=== PATIENT | female | born 1940 | race Caucasian/White ===

== ENCOUNTER → 2016-05-09 | Outpatient (CLI) | payer MEDICARE ==
--- NOTE | 2016-05-09 10:44 | REP ---
ULTRASOUND OF THE ABDOMEN: Real-time sonographic evaluation of the abdomen performed. Patient has had a prior cholecystectomy. There is no intrahepatic or extrahepatic biliary dilatation. Common bile duct is 8 mm in diameter. Liver and pancreas demonstrate no gross mass. Pancreas is not optimally seen due to overlying bowel gas. Spleen is normal in size with no intrinsic abnormality, length is 8.9 cm. Kidneys are normal in size and echotexture, right kidney measuring 10.6 x 4.4 x 5.2 cm and left kidney 10.4 x 4.4 x 5.3 cm. There is no hydronephrosis, renal mass, or nephrolithiasis. Abdominal aorta is normal in caliber with no aneurysm. Maximum AP diameter below the diaphragms is 2.7 cm, mid aspect 1.7 cm and distally 1.8 cm. There is no ascites. IMPRESSION: Essentially unremarkable abdominal ultrasound status post cholecystectomy. Signed by Tyson Potter MD 05/09/2016 03:19 P
== END ==
LOC: M RAD 09:08
PROVIDERS: ATTEND Nurse Practitioner Adult Health
DX: K59.00 Constipation, unspecified (principal); R10.13 Epigastric pain; R10.11 Right upper quadrant pain

== ENCOUNTER → 2016-05-27 | Outpatient (CLI) | payer MEDICARE ==
--- NOTE | 2016-05-27 12:40 | REP ---
NUCLEAR GASTRIC EMPTYING SCAN: Following the oral administration of 1.05 millicuries technetium 99m sulfur colloid in two scrambled eggs in 6 ounces of water, multiple images of the upper abdomen are performed in the anterior and posterior projections for 90 minutes. The gastric activity is measured and the gastric emptying time is calculated. At the end of 90 minutes 17% of the ingested activity has emptied from the stomach. This yields a t-1/2 of 185 minutes. Gastric emptying time is moderately elevated. IMPRESSION: Moderately elevated gastric emptying time, with delayed passage of ingested contents through the stomach. Signed by Tyson Potter MD 05/27/2016 05:04 P
== END ==
LOC: M RAD 08:43
PROVIDERS: ATTEND Internal Medicine Gastroenterology
DX: R10.13 Epigastric pain (principal); R10.11 Right upper quadrant pain; R11.0 Nausea
CPT/HCPCS: 78264; A9541

== ENCOUNTER → 2016-06-14 | Outpatient (CLI) | payer MEDICARE ==
[2016-06-14 12:46] LABS: ALBUMIN 4.1 GM/DL (3.2-5.2); ALBUMIN/GLOBULIN RATIO 1.41 (1.00-1.93); BILIRUBIN,DIRECT 0.1 MG/DL (0.0-0.2); BILIRUBIN,TOTAL 0.5 MG/DL (0.2-1.0)
== END ==
LOC: M LAB 11:32
PROVIDERS: ATTEND Internal Medicine Gastroenterology
DX: K31.84 Gastroparesis (principal); R10.11 Right upper quadrant pain; R10.13 Epigastric pain; K44.9 Diaphragmatic hernia without obstruction or gangrene

== ENCOUNTER → 2016-09-17 | Outpatient (CLI) | payer MEDICARE ==
--- NOTE | 2016-09-17 11:25 | REP ---
Chest x-ray: Two views. History: Cough and fever. Findings: There are degenerative disc changes in the thoracic spine. No other bony abnormality is seen. The lungs are well inflated and clear. Pleural angles are sharp. The heart is mildly enlarged with cardiothoracic ratio measuring 14.8 cm over 28.0 cm. There are clips in the right upper quadrant of the abdomen post cholecystectomy. Pulmonary vasculature is not increased. Impression: Mildly prominent heart. Otherwise no acute disease. Signed by Alexi Silverio MD 09/17/2016 12:26 P
== END ==
LOC: M WUC 11:00
PROVIDERS: ATTEND Nurse Practitioner Family
DX: R50.9 Fever, unspecified (principal); R05 Cough

== ENCOUNTER → 2017-09-12 | Outpatient (CLI) | payer MEDICARE | LOC: M WHC 12:47 | DX: Z12.31 Encounter for screening mammogram for malignant neoplasm of breast (principal); M85.80 Other specified disorders of bone density and structure, unspecified site; Z78.0 Asymptomatic menopausal state; Z80.3 Family history of malignant neoplasm of breast | CPT/HCPCS: 77067 ==

== ENCOUNTER → 2017-09-16 | Outpatient (REF) | payer MEDICARE ==
[2017-09-16 14:08] LABS: BASO # 0.1 10^3/uL (0.0-0.2); BASO % 0.8 % (0.0-1.0); EOS # 0.1 10^3/uL (0.0-0.50); EOS % 1.5 % (0.0-3.0); HEMATOCRIT 45.1 % (36.0-47.0); HEMOGLOBIN 14.8 g/dl (12.0-15.5); IMMATURE GRANULOCYTE % 0.3 % (0-3.0); LYMPH % 26.9 % (24.0-44.0); MEAN CORPUSCULAR HEMOGLOBIN 30.4 pg (27.0-33.0); MEAN CORPUSCULAR HGB CONC 32.8 g/dl (32.0-36.5); MEAN CORPUSCULAR VOLUME 92.6 fl (80.0-96.0); MONO # 0.9 10^3/uL (0.0-0.8); MONO % 11.5 % (0.0-5.0); NEUTROPHILS # 4.4 10^3/uL (1.8-7.7); PLATELET COUNT, AUTOMATED 189 10^3/uL (150-450); RED BLOOD COUNT 4.87 10^6/uL (4.00-5.40); RED CELL DISTRIBUTION WIDTH 13.7 % (11.5-14.5); WHITE BLOOD COUNT 7.4 10^3/uL (4.0-10.0)
[2017-09-16 14:11] LABS: FOLATE 16.5 NG/ML; TOTAL 25(OH) VITAMIN D 23.9 NG/ML (30.0-100.0); VITAMIN B12 LEVEL 810 PG/ML
[2017-09-16 14:27] LABS: ALBUMIN 4.1 GM/DL (3.2-5.2); ALBUMIN/GLOBULIN RATIO 1.17 (1.00-1.93); ALKALINE PHOSPHATASE 54 U/L (45-117); ALT/SGPT 36 U/L (12-78); ANION GAP 9 MEQ/L (8-16); AST/SGOT 20 U/L (7-37); BILIRUBIN,TOTAL 0.5 MG/DL (0.2-1.0); BLOOD UREA NITROGEN 20 MG/DL (7-18); CALCIUM LEVEL 9.3 MG/DL (8.8-10.2); CARBON DIOXIDE LEVEL 27 MEQ/L (21-32); CHLORIDE LEVEL 107 MEQ/L (98-107); CREATININE FOR GFR 0.94 MG/DL (0.55-1.30); GLOMERULAR FILTRATION RATE > 60.0 (>39); GLUCOSE, FASTING 101 MG/DL (70-100); POTASSIUM SERUM 3.9 MEQ/L (3.5-5.1); RHEUMATOID FACTOR QUANT < 10.0 IU/ML (<15.0); SODIUM LEVEL 143 MEQ/L (136-145); TOTAL PROTEIN 7.6 GM/DL (6.4-8.2)
[2017-09-16 14:35] LABS: ERYTHROCYTE SEDIMENTATION RATE 8 mm/hr (0-30)
[2017-09-20 00:06] LABS: ANTINUCLEAR ANTIBODIES DIRECT Negative (Negative); VITAMIN B1 LEVEL WHOLE BLOOD 115.2 nmol/L (66.5-200.0); VITAMIN E(ALPHA TOCOPHEROL) 13.3 mg/L (9.0-29.0); VITAMIN E(GAMMA TOCOPHEROL) 0.8 mg/L (0.5-4.9)
== END ==
LOC: M LABNEURO 09:26
DX: R42 Dizziness and giddiness (principal); R51 Headache
CPT/HCPCS: 82746

== ENCOUNTER → 2018-01-08 | Outpatient (REF) | payer MEDICARE ==
[2018-01-08 13:51] LABS: TOTAL 25(OH) VITAMIN D 37.7 NG/ML (30.0-100.0)
[2018-01-08 14:04] LABS: MAGNESIUM LEVEL 2.5 MG/DL (1.8-2.4)
== END ==
LOC: M LABNEURO 11:01
DX: K21.9 Gastro-esophageal reflux disease without esophagitis (principal); K44.9 Diaphragmatic hernia without obstruction or gangrene; K31.84 Gastroparesis; E55.9 Vitamin D deficiency, unspecified
CPT/HCPCS: 83735

== ENCOUNTER → 2019-01-21 | Outpatient (CLI) | payer MEDICARE ==
--- NOTE | 2019-01-21 11:16 | REP ---
BILATERAL SCREENING DIGITAL MAMMOGRAM WITH 3D TOMOSYNTHESIS: There are no palpable abnormalities or other breast complaints. The the patient states she had a clinical breast examination January,. The the patient states she performs self-breast examinations 12 times per year. The Tyrer-Cuzick Score is: 5.6% . Comparison is 01/19/2014. There are scattered areas of fibroglandular density. There is no dominant mass, micro calcific cluster or architectural distortion that would indicate malignancy. There are no additional findings on 3D tomosynthesiss. There is no change from the prior study. Impression: BIRADS/ACR category 1 mammogram. Negative. Recommendation: Routine annual screening mammography. This mammogram was interpreted with the aid of a FDA approved computer-aided detection system. A. Negative mammogram reports should not delay biopsy if a dominant or clinically suspicious mass is present. B. Not all breast cancers are identified by mammography or tomosynthesis. C. Adenosis and dense breasts may obscure an underlying neoplasm. Patient letter M1. Electronically Signed by Tyson Johnson MD 01/21/2019 11:07 A
== END ==
LOC: M WHC 09:01
PROVIDERS: ATTEND Nurse Practitioner Family
DX: Z12.31 Encounter for screening mammogram for malignant neoplasm of breast (principal)

== ENCOUNTER → 2020-01-24 | Outpatient (CLI) | payer MEDICARE ==
--- NOTE | 2020-01-24 11:29 | REPMRS ---
Patient History The patient states she had a clinical breast exam in January 2020. Family history of breast cancer at age 50 or over in maternal aunt, breast cancer at age 45 in paternal half sister, pancreatic cancer at age 50 or over in father. No Hormone Replacement Therapy 3D TOMOSYNTHESIS WAS PERFORMED. [facility] for [facility] cancer [facility] 5.1%. VOLPARA DENSITY B. Digital Woman Screen Mammo: January 24, 2020 - Exam #: [id number] Bilateral CC and MLO view(s) were taken. Technologist: RT Arcelia Prior study comparison: January 21, 2019, bilateral digital woman screen mammo performed at [facility]. September 12, 2017, digital woman screen mammo performed at [facility]. FINDINGS: There are scattered fibroglandular densities. There has been no change in the appearance of the mammogram from the prior studies. There is a mild amount of residual fibroglandular tissue which is fairly symmetric. There is no interval development of dominant mass, architectural distortion, or clustered microcalcification suggestive of malignancy. Assessment: BI-RADS/ACR category 1 mammogram. Negative Mammogram. Recommendation Routine screening mammogram in 1 year (for women over age 40). This mammogram was interpreted with the aid of an FDA-approved computer-aided dectection system. Electronically Signed By: Tyson Potter MD 01/24/20 [id number]
== END ==
LOC: M WHC 09:48
PROVIDERS: ATTEND Nurse Practitioner Family
DX: Z12.31 Encounter for screening mammogram for malignant neoplasm of breast (principal)

== ENCOUNTER → 2020-10-17 | Outpatient (CLI) | payer MEDICARE ==
[2020-10-17 11:52] LABS: BASO # 0.1 10^3/uL (0.0-0.2); BASO % 0.6 % (0.0-1.0); EOS # 0.1 10^3/uL (0.0-0.5); EOS % 1.4 % (0.0-3.0); HEMATOCRIT 45.1 % (36.0-47.0); HEMOGLOBIN 14.7 g/dl (12.0-15.5); LYMPH # 2.4 10^3/uL (1.5-5.0); LYMPH % 28.3 % (24.0-44.0); MEAN CORPUSCULAR HEMOGLOBIN 29.9 pg (27.0-33.0); MEAN CORPUSCULAR HGB CONC 32.6 g/dl (32.0-36.5); MEAN CORPUSCULAR VOLUME 91.7 fl (80.0-96.0); MONO # 1.1 10^3/uL (0.0-0.8); MONO % 12.4 % (2.0-8.0); NEUTROPHILS # 4.8 10^3/uL (1.5-8.5); NEUTROPHILS % 57.1 % (36.0-66.0); PLATELET COUNT, AUTOMATED 211 10^3/uL (150-450); RED BLOOD COUNT 4.92 10^6/uL (4.00-5.40); WHITE BLOOD COUNT 8.5 10^3/uL (4.0-10.0)
[2020-10-17 12:42] LABS: BLOOD UREA NITROGEN 17 MG/DL (7-18); CALCIUM LEVEL 9.9 MG/DL (8.8-10.2); CARBON DIOXIDE LEVEL 30 MEQ/L (21-32); CHLORIDE LEVEL 103 MEQ/L (98-107); CREATININE FOR GFR 0.89 MG/DL (0.55-1.30); GLOMERULAR FILTRATION RATE > 60.0 (>39); GLUCOSE, FASTING 95 MG/DL (70-100); POTASSIUM SERUM 3.8 MEQ/L (3.5-5.1); SODIUM LEVEL 140 MEQ/L (136-145)
== END ==
LOC: M LAB 10:41
PROVIDERS: ATTEND Internal Medicine Cardiovascular Disease
DX: E78.5 Hyperlipidemia, unspecified (principal)

== ENCOUNTER 2020-12-18 12:27 | Day surgery (SDC) | payer MEDICARE ==
[~2020-12-18] VITALS: Ht 157.5 cm; Wt 65.9 kg
[2020-12-18] MEDS ORDERED: PACE200T PO (15:20)
[2020-12-18] MEDS ORDERED: METO1TAB87 PO (15:20)
[2020-12-18] MEDS ORDERED: ASPI81CH33 PO (15:20)
[2020-12-18] MEDS ORDERED: XANA0.25 PO (15:20)
[2020-12-18] MEDS ORDERED: LOSA25TA14 PO (15:20)
[2020-12-18] MEDS ORDERED: ROSU20TA5 PO (15:20)
[2020-12-18 15:43] LABS: BASO # 0.1 10^3/uL (0.0-0.2); BASO % 0.3 % (0.0-1.0); HEMATOCRIT 44.3 % (36.0-47.0); LYMPH # 1.1 10^3/uL (1.5-5.0); LYMPH % 5.6 % (24.0-44.0); MEAN CORPUSCULAR HEMOGLOBIN 28.9 pg (27.0-33.0); MEAN CORPUSCULAR HGB CONC 31.6 g/dl (32.0-36.5); MEAN CORPUSCULAR VOLUME 91.5 fl (80.0-96.0); MONO # 0.8 10^3/uL (0.0-0.8); NEUTROPHILS # 17.5 10^3/uL (1.5-8.5); NEUTROPHILS % 89.6 % (36.0-66.0); PLATELET COUNT, AUTOMATED 242 10^3/uL (150-450); RED BLOOD COUNT 4.84 10^6/uL (4.00-5.40); WHITE BLOOD COUNT 19.6 10^3/uL (4.0-10.0)
[2020-12-18 16:14] LABS: BILIRUBIN,DIRECT 0.1 MG/DL (0.0-0.2); BILIRUBIN,TOTAL 0.4 MG/DL (0.2-1.0); CALCIUM LEVEL 9.4 MG/DL (8.8-10.2); CREATININE FOR GFR 0.96 MG/DL (0.55-1.30); POTASSIUM SERUM 3.8 MEQ/L (3.5-5.1); TOTAL PROTEIN 7.7 GM/DL (6.4-8.2)
[2020-12-18] MEDS ORDERED: ISOVUE-370 76% 100ML VIAL As Ordered ONE (16:47)
[2020-12-18] MEDS ORDERED: ONDANSETRON 4MG/2ML VIAL IV ONE (17:00)
[2020-12-18] MEDS ORDERED: MORPHINE 2 MG/ML 1ML VIAL (J2270) IV ONE (17:00)
[2020-12-18 17:17] LABS: CK-MB VALUE MASS < 1.0 NG/ML (<3.6); CPK CREATINE PHOSPHOKINASE 49 U/L (26-192); MB/CK RELATIVE INDEX 2.04 (< OR =4); TROPONIN I < 0.02 NG/ML (< 0.10)
--- NOTE | 2020-12-18 17:33 | ECGEPIP ---
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
--- NOTE | 2020-12-18 17:58 | REPVR ---
PROCEDURE INFORMATION: Exam: CT Abdomen And Pelvis With Contrast Exam date and time: 12/18/2020 4:07 PM Age: 79 years old Clinical indication: Abdominal pain; Additional info: Severe diffuse abd pain TECHNIQUE: Imaging protocol: Computed tomography of the abdomen and pelvis with contrast. Radiation optimization: All CT scans at this facility use at least one of these dose optimization techniques: automated exposure control; mA and/or kV adjustment per patient size (includes targeted exams where dose is matched to clinical indication); or iterative reconstruction. Contrast material: ISOVUE 370; Contrast volume: 100 ml; Contrast route: INTRAVENOUS (IV); COMPARISON: ABD COMPLETE US 05/09/2016 9:28 AM FINDINGS: Lungs: No suspicious mass or airspace process in the visualized lung bases. Liver: Liver appears normal with no focal abnormality. Gallbladder and bile ducts: Gallbladder is surgically absent. Prominent central bile ducts, likely postcholecystectomy capacitance effect. Pancreas: Pancreas appears normal. No focal mass or peripancreatic inflammation. Spleen: Spleen appears homogeneous without focal mass. Adrenal glands: Adrenal glands are normal in appearance. Kidneys and ureters: Left kidney is unremarkable. Right kidney demonstrates perinephric and periureteric stranding and increased renal pelvis urothelial enhancement without obstructing stone or parenchymal pyelonephritis. Stomach and bowel: No evidence of small bowel obstruction. Diverticular changes are present within the colon without inflammation. Appendix: Appendix is abnormal. It is fluid-filled and dilated with indistinct margins and irregular enhancing wall. It measures up to 13 mm in diameter with periappendiceal stranding. The distal tip of the appendix lies just to the left of the midline in the anterior lower abdomen at the craniocaudal level of the iliac bifurcation. No evidence of perforation. Intraperitoneal space: No pneumoperitoneum. Vasculature: Atherosclerotic change present in the aorta, without aneurysm. Main portal and splenic veins enhance normally. Lymph nodes: No enlarged lymph nodes. Urinary bladder: Urinary bladder appears normal. Reproductive: Female reproductive organs appear unremarkable. Bones/joints: Bony structures are normal except for lumbar spine degenerative disc changes. Soft tissues: Unremarkable. IMPRESSION: Acute appendicitis with distal appendix lying to the left of midline anterior to the iliac bifurcation. No evidence of perforation Electronically signed by: Valeriano Leiva On 12/18/2020 17:57:46 PM
[2020-12-18] MEDS ORDERED: PIPERACILLIN/TAZOBACTAM SOD 3.375 GM in D5W MINI-BAG PLUS 50 ML IV ONE (18:00)
[2020-12-18] MEDS ORDERED: MONI1OIN VA (18:26)
[2020-12-18] MEDS ORDERED: HYDR12CA PO (18:30)
[2020-12-18] MEDS ORDERED: ESOM40CA35 PO (18:30)
[2020-12-18 19:06] LABS: RSV AMPLIFICATION NEGATIVE (NEGATIVE)
[2020-12-18] MEDS ORDERED: ASPI1CHW3 PO (19:17)
[2020-12-18] MEDS ORDERED: HOME MED LIST COMPLETE! XX SCH (19:25)
[2020-12-18] MEDS ORDERED: BUPIVACAINE HCL 0.25% 30ML VIAL As Ordered ONE (19:51)
[2020-12-18] MEDS ORDERED: dexameTHASONE 4 MG/ML 1ML VIAL (J1100 PER 1MG) As Ordered ONE (19:58)
[2020-12-18] MEDS ORDERED: MIDAZOLAM INJ 2MG/2ML VIAL (J2250 PER 1MG) As Ordered ONE (19:58)
[2020-12-18] MEDS ORDERED: LIDOCAINE 2% 100MG/5ML SDV (FOR ANES.) As Ordered ONE (19:58)
[2020-12-18] MEDS ORDERED: fentaNYL 250 MCG/5 ML INJECTION (J3010) As Ordered ONE (19:58)
[2020-12-18] MEDS ORDERED: KETOROLAC 60MG 2ML VIAL As Ordered ONE (19:58)
[2020-12-18] MEDS ORDERED: ONDANSETRON 4MG/2ML VIAL As Ordered ONE (19:58)
[2020-12-18] MEDS ORDERED: ROCURONIUM BROMIDE 50 MG/5 ML VIAL As Ordered ONE (19:58)
[2020-12-18] MEDS ORDERED: propofoL 200 MG/20 ML VIAL As Ordered ONE (19:58)
[2020-12-18] MEDS ORDERED: ETOMIDATE INJ 20MG/10ML VIAL As Ordered ONE (20:05)
[2020-12-18] MEDS ORDERED: ROSUVASTATIN 10 MG TAB (CRESTOR) PO SCH (21:00)
[2020-12-18] MEDS ORDERED: ACETAMINOPHEN 1000MG 100ML IV BTL (OFIRMEV) (J0131 PER 10MG) As Ordered ONE (21:24)
[2020-12-18] MEDS ORDERED: SUGAMMADEX SODIUM 500 MG/5 ML VIAL (BRIDION) As Ordered ONE (21:34)
[2020-12-18] MEDS ORDERED: ePHEDrine SULFATE 25 MG/5 ML(5MG/ML) SYRINGE As Ordered ONE (21:35)
[2020-12-18] MEDS ORDERED: PHENYLephrine 500MCG 5ML (100MCG/ML) SYRINGE As Ordered ONE (21:35)
[2020-12-18] MEDS ORDERED: MORPHINE 2 MG/ML 1ML VIAL (J2270) IV PRN ×2 (21:55)
[2020-12-18] MEDS ORDERED: NS 1,000 ML IV SCH (21:55)
[2020-12-18] MEDS ORDERED: ONDANSETRON 4 MG TAB PO PRN (21:55)
[2020-12-18] MEDS ORDERED: oxyCODONE 5MG TAB PO PRN (22:05)
[2020-12-18] MEDS ORDERED: ONDANSETRON 4MG/2ML VIAL IV PRN (22:05)
[2020-12-18] MEDS ORDERED: fentaNYL 100 MCG/2 ML INJECTION (J3010) IV PRN (22:05)
[2020-12-18] MEDS ORDERED: LR 1,000 ML IV SCH (22:05)
[2020-12-18 23:00] VITALS: BP 138/63
[2020-12-18] MEDS: KETOROLAC 30 MG/ML 1ML VIAL IV SCH (23:00)
[2020-12-18 23:30] VITALS: BP 134/64
[2020-12-18] MEDS: ACETAMINOPHEN 500 MG TAB PO SCH (23:36)
[2020-12-18] MEDS: METOPROLOL TART 25 MG TABLET PO SCH (23:36)
[2020-12-18] MEDS: PIPERACILLIN/TAZOBACTAM SOD 3.375 GM in D5W MINI-BAG PLUS 50 ML IV SCH (23:37)
[2020-12-19] VITALS: BP 115/59
[2020-12-19 02:00] VITALS: BP 115/59
[2020-12-19] MEDS: KETOROLAC 30 MG/ML 1ML VIAL IV SCH ×2 (05:00→12:06)
[2020-12-19] MEDS: ACETAMINOPHEN 500 MG TAB PO SCH ×2 (05:59→14:00)
[2020-12-19 06:00] VITALS: BP 110/51
[2020-12-19] MEDS: PIPERACILLIN/TAZOBACTAM SOD 3.375 GM in D5W MINI-BAG PLUS 50 ML IV SCH ×2 (06:06→12:06)
[2020-12-19 08:17] VITALS: BP 119/61
[2020-12-19] MEDS: METOPROLOL TART 25 MG TABLET PO SCH (08:17)
--- NOTE | 2020-12-19 08:41 | IPNPDOC ---
Text Note Date of Service The patient was seen on 12/19/20. NOTE General surgery. Dr Dash The patient is a 79-year-old female status post laparoscopic appendectomy 12/19/2020s per Dr Dash. This morning, the patient is sitting up in bed. Has had breakfast. Has been out of bed to bathroom. States pain is controlled. Afebrile. VSS. MMM Lungs clear to auscultation S1-S2 regular rate rhythm Abdomen is soft, mild tenderness around surgical sites only. Dressings are clean/dry/intact. No edema No new labs Assessment/plan Status post laparoscopic appendectomy 12/18/[address] Dash. The patient is reviewed with Dr. Dash. Tolerating regular diet Pain is controlled Incisions are clean and dry Continue out of bed Likely discharge later today. VS,Fishbone, I+O VS, Fishbone, I+O Laboratory Tests 12/18/20 15:28 Vital Signs Date Time Temp Pulse Resp B/P (MAP) Pulse Ox O2 Delivery O2 Flow Rate FiO2 12/19/20 08:17 60 119/61 12/19/20 06:00 98.3 20 92 Room Air 12/18/20 21:54 10.0 I&O- Last 24 Hours up to 6 AM 12/19/20 06:00 Intake Total 1355 ml Output Total 810 ml Balance 545 ml Lorena Almazan Dec 19, 2020 08:41
[2020-12-19] MEDS ORDERED: PANTOPRAZOLE 40MG VIAL (C9113 PER 1) IV SCH (09:00)
[2020-12-19] MEDS ORDERED: LOSARTAN 25 MG TAB PO SCH (09:00)
[2020-12-19] MEDS ORDERED: AMIODARONE 200 MG TAB (PACERONE) PO SCH (09:00)
[2020-12-19 10:00] VITALS: BP 115/61
--- NOTE | 2021-01-12 13:12 | RO ---
OPERATIVE NOTE DATE OF OPERATION: 12/18/2020 PREOPERATIVE DIAGNOSIS: Acute appendicitis. POSTOPERATIVE DIAGNOSIS: Acute appendicitis. PROCEDURE: Laparoscopic appendectomy. SURGEON: Sanjay Dash MD [employer]RAFTSPERSON: ANESTHESIA: General endotracheal anesthesia. ESTIMATED BLOOD LOSS: Minimal. FLUIDS: Crystalloids. BRIEF PROCEDURE SUMMARY: The patient was brought into the operating room and was given general anesthesia. After adequate anesthesia and preoperative antibiotics were given, the patient was prepped and draped in the usual sterile fashion. Next, the supraumbilical incision was made with a skin knife, blunt dissection was carried down to fascia and Veress needle inserted into the abdomen and then insufflated to 15 mmHg of pressure. A dilating 12 mm trocar was placed and under direct visualization, suprapubic and left lower quadrant 5 mm trocars were placed. The appendix was seen in the right lower quadrant and dissected out using a harmonic scalpel. The mesentery was taken down to the base of the appendix/cecal wall and then transected with a DEBRA stapler. This was placed in an Endo catch bag and brought out through the umbilicus. The right lower quadrant was copiously irrigated until clear. All trocars were removed under direct visualization. Next, 0 Vicryl was used to close the fascia at the umbilicus, and 4-0 Vicryl was used to close all skin incisions. Steri-Strips and a dry sterile dressing was applied. Patient was awakened, extubated and brought to the recovery room, awake, alert and hemodynamically stable. Sponge and needle counts correct times 2.
== END 2020-12-19 15:30 | disposition home or self-care (01) ==
LOC: M ED 12:27 → M SDC 12:28 → M MS5PR 23:10 → M SDC 12-19 15:30
PROVIDERS: ATTEND Surgery
DX: K35.80 Unspecified acute appendicitis (principal); R11.2 Nausea with vomiting, unspecified; I48.91 Unspecified atrial fibrillation; E78.5 Hyperlipidemia, unspecified; I25.2 Old myocardial infarction; I10 Essential (primary) hypertension; I25.10 Atherosclerotic heart disease of native coronary artery without angina pectoris; Z95.5 Presence of coronary angioplasty implant and graft; K58.9 Irritable bowel syndrome, unspecified; Z95.1 Presence of aortocoronary bypass graft; Z88.8 Allergy status to other drugs, medicaments and biological substances; Z88.1 Allergy status to other antibiotic agents; Z79.899 Other long term (current) drug therapy; Z79.82 Long term (current) use of aspirin
CPT/HCPCS: 44970; 74177; 80048; 80076; 81001; 82550; 82553; 83690; 84484; 85025; 87086; 87631; 88304; 93005; 96365; 96375; 96376; 99284; C9113; J0131; J1100; J1885; J2250; J2270; J2370; J2405; J2543; J3010; Q9967

== ENCOUNTER → 2021-08-02 | Outpatient (REF) | payer MEDICARE ==
[~2021-08-02] MED LIST: ASPI1CHW3 PO; ASPI81CH33 PO; ESOM40CA35 PO; HYDR12CA PO; LOSA25TA13 PO; METO1TAB87 PO; MONI1OIN VA; PACE200T PO; ROSU20TA5 PO; XANA0.25 PO
[2021-08-02 14:19] LABS: BACTERIA, URINE AUTO NEGATIVE (NEGATIVE); MUCUS, URINE SMALL (NEGATIVE); RBC, URINE AUTO 2 /HPF (0-3); SQUAMOUS EPITHELIAL CELL UR AU 0 /HPF (0-6); WBC, URINE AUTO 5 /HPF (0-3)
== END ==
LOC: M LAB REF 13:01
PROVIDERS: ATTEND Internal Medicine
DX: N39.0 Urinary tract infection, site not specified (principal); R31.9 Hematuria, unspecified

== ENCOUNTER → 2021-08-10 | Outpatient (REF) | payer MEDICARE ==
[~2021-08-10] MED LIST changes: +AMLO1TAB24 PO; +CEPH500C PO; +OXYB5TAB10 PO; +OXYC1TAB23 PO
[2021-08-10 14:07] LABS: APPEARANCE, URINE CLEAR (CLEAR); BACTERIA, URINE AUTO NEGATIVE (NEGATIVE); BILIRUBIN, URINE AUTO NEGATIVE (NEGATIVE); BLOOD, URINE BLOOD 3+ (NEGATIVE); COLOR, URINE STRAW (YELLOW); GLUCOSE, URINE (UA) AUTO NEGATIVE (NEGATIVE); KETONE, URINE AUTO NEGATIVE (NEGATIVE); LEUKOCYTE ESTERASE, URINE AUTO TRACE (NEGATIVE); MUCUS, URINE SMALL (NEGATIVE); NITRITE, URINE AUTO NEGATIVE (NEGATIVE); PROTEIN, URINE AUTO NEGATIVE (NEGATIVE); RBC, URINE AUTO 4 /HPF (0-3); SPECIFIC GRAVITY URINE AUTO 1.004 (1.002-1.035); SQUAMOUS EPITHELIAL CELL UR AU 0 /HPF (0-6); TRANSITIONAL EPITHELIAL AUTO <1 /HPF; UROBILINOGEN, URINE AUTO 0.2 mg/dL (0.0-2.0); WBC, URINE AUTO 4 /HPF (0-3)
== END ==
LOC: M SMT 13:22
PROVIDERS: ATTEND Physician Assistant
DX: R31.0 Gross hematuria (principal)

== ENCOUNTER 2021-08-21 15:37 | Emergency (ER) | payer MEDICARE ==
[~2021-08-21] VITALS: Ht 154.9 cm; Wt 72.4 kg
[~2021-08-21 15:37] MED LIST changes: -CEPH500C PO; -ISOVUE-370 76% 100ML VIAL As Ordered ONE
[2021-08-21 17:20] LABS: BASO # 0.1 10^3/uL (0.0-0.2); BASO % 0.7 % (0.0-1.0); EOS # 0.1 10^3/uL (0.0-0.5); EOS % 1.3 % (0.0-3.0); HEMATOCRIT 48.1 % (36.0-47.0); HEMOGLOBIN 15.7 g/dl (12.0-15.5); LYMPH # 1.4 10^3/uL (1.5-5.0); LYMPH % 19.4 % (24.0-44.0); MEAN CORPUSCULAR HGB CONC 32.6 g/dl (32.0-36.5); MEAN CORPUSCULAR VOLUME 91.8 fl (80.0-96.0); MONO % 13.9 % (2.0-8.0); NEUTROPHILS # 4.8 10^3/uL (1.5-8.5); NEUTROPHILS % 64.4 % (36.0-66.0); PLATELET COUNT, AUTOMATED 180 10^3/uL (150-450); RED BLOOD COUNT 5.24 10^6/uL (4.00-5.40); WHITE BLOOD COUNT 7.4 10^3/uL (4.0-10.0)
[2021-08-21 17:49] LABS: CALCIUM LEVEL 9.4 MG/DL (8.8-10.2); CREATININE FOR GFR 1.11 MG/DL (0.55-1.30); GLOMERULAR FILTRATION RATE 50.6 (>39); POTASSIUM SERUM 3.8 MEQ/L (3.5-5.1)
[2021-08-21] MEDS ORDERED: CEPH500C PO (20:00)
[2021-08-21] MEDS ORDERED: CEPHALEXIN 500 MG CAP PO ONE (20:05)
[2021-08-21 20:22] VITALS: BP 134/76
== END 2021-08-21 20:22 | disposition home or self-care (01) ==
LOC: M ED 15:37
DX: N10 Acute pyelonephritis (principal); R31.29 Other microscopic hematuria; I25.2 Old myocardial infarction; I25.10 Atherosclerotic heart disease of native coronary artery without angina pectoris; I10 Essential (primary) hypertension; E78.5 Hyperlipidemia, unspecified; K58.9 Irritable bowel syndrome, unspecified; Z95.1 Presence of aortocoronary bypass graft; Z79.82 Long term (current) use of aspirin; Z79.899 Other long term (current) drug therapy; Z88.8 Allergy status to other drugs, medicaments and biological substances; Z88.1 Allergy status to other antibiotic agents
CPT/HCPCS: 74178; 80048; 81001; 85025; 87086; 99284; Q9967

== ENCOUNTER → 2021-08-21 | Outpatient (CLI) | payer MEDICARE ==
[~2021-08-21] MED LIST changes: -AMLO1TAB24 PO; +ISOVUE-370 76% 100ML VIAL As Ordered ONE; -OXYB5TAB10 PO; -OXYC1TAB23 PO
== END ==
LOC: M RAD 09:23
PROVIDERS: ATTEND Physician Assistant
DX: R31.0 Gross hematuria (principal)
CPT/HCPCS: 74178; Q9967

== ENCOUNTER → 2021-09-03 | Outpatient (REF) | payer MEDICARE ==
[~2021-09-03] MED LIST changes: +CEPH500C PO
== END ==
LOC: M SMT 13:09
PROVIDERS: ATTEND Urology
DX: R31.0 Gross hematuria (principal)

== ENCOUNTER → 2021-09-07 | Outpatient (CLI) | payer MEDICARE ==
[2021-09-07 15:06] LABS: HEMATOCRIT 46.4 % (36.0-47.0); HEMOGLOBIN 15.2 g/dl (12.0-15.5); MEAN CORPUSCULAR HEMOGLOBIN 29.7 pg (27.0-33.0); MEAN CORPUSCULAR HGB CONC 32.8 g/dl (32.0-36.5); MEAN CORPUSCULAR VOLUME 90.8 fl (80.0-96.0); PLATELET COUNT, AUTOMATED 199 10^3/uL (150-450); RED BLOOD COUNT 5.11 10^6/uL (4.00-5.40); WHITE BLOOD COUNT 10.3 10^3/uL (4.0-10.0)
[2021-09-07 15:51] LABS: CALCIUM LEVEL 9.9 MG/DL (8.8-10.2); CREATININE FOR GFR 1.05 MG/DL (0.55-1.30); POTASSIUM SERUM 4.6 MEQ/L (3.5-5.1)
== END ==
LOC: M RAD 14:01
PROVIDERS: ATTEND Urology
DX: R82.89 Other abnormal findings on cytological and histological examination of urine (principal); Z79.899 Other long term (current) drug therapy

== ENCOUNTER → 2021-09-10 | Outpatient (REF) | payer MEDICARE ==
[2021-09-10 16:36] LABS: APPEARANCE, URINE CLEAR (CLEAR); BACTERIA, URINE AUTO 1+ (NEGATIVE); BILIRUBIN, URINE AUTO NEGATIVE (NEGATIVE); BLOOD, URINE BLOOD 2+ (NEGATIVE); COLOR, URINE COLORLESS (YELLOW); GLUCOSE, URINE (UA) AUTO NEGATIVE (NEGATIVE); KETONE, URINE AUTO NEGATIVE (NEGATIVE); LEUKOCYTE ESTERASE, URINE AUTO NEGATIVE (NEGATIVE); NITRITE, URINE AUTO NEGATIVE (NEGATIVE); PROTEIN, URINE AUTO NEGATIVE (NEGATIVE); RBC, URINE AUTO 0 /HPF (0-3); SPECIFIC GRAVITY URINE AUTO 1.003 (1.002-1.035); SQUAMOUS EPITHELIAL CELL UR AU 1 /HPF (0-6); UROBILINOGEN, URINE AUTO 0.2 mg/dL (0.0-2.0); WBC, URINE AUTO 2 /HPF (0-3)
== END ==
LOC: M LAB REF 16:17
PROVIDERS: ATTEND Internal Medicine
DX: Z01.810 Encounter for preprocedural cardiovascular examination (principal); R31.0 Gross hematuria

== ENCOUNTER → 2021-09-17 | Outpatient (CLI) | payer MEDICARE | LOC: M LABSMTC 09:32 | PROVIDERS: ATTEND Anesthesiology | DX: Z20.822 Contact with and (suspected) exposure to COVID-19 (principal) ==

== ENCOUNTER 2021-09-21 08:48 | Day surgery (SDC) | payer MEDICARE ==
[~2021-09-21] VITALS: Ht 154.9 cm; Wt 71.8 kg
[~2021-09-21 08:48] MED LIST changes: +AMLO1TAB24 PO; +LIDOCAINE 1% MDV 20ML VIAL SQ PRN; +LR 1,000 ML IV ONE; +ceFAZolin SOD 2 GM in IV 1 EA IV ONE
[2021-09-21] MEDS ORDERED: ISOVUE-300 61% 50ML VIAL As Ordered ONE (10:30)
[2021-09-21] MEDS ORDERED: MIDAZOLAM INJ 2MG/2ML VIAL (J2250 PER 1MG) As Ordered ONE (10:38)
[2021-09-21] MEDS ORDERED: fentaNYL 100 MCG/2 ML INJECTION As Ordered ONE (10:38)
[2021-09-21] MEDS ORDERED: propofoL 200 MG/20 ML VIAL As Ordered ONE (10:38)
[2021-09-21] MEDS ORDERED: LIDOCAINE 2% 100MG/5ML SDV (FOR ANES.) As Ordered ONE (10:38)
[2021-09-21] MEDS ORDERED: ONDANSETRON 4MG/2ML VIAL As Ordered ONE (10:51)
[2021-09-21] MEDS ORDERED: dexameTHASONE 4 MG/ML 1ML VIAL (J1100 PER 1MG) As Ordered ONE (10:51)
[2021-09-21] MEDS ORDERED: ACETAMINOPHEN 1000MG 100ML IV BTL (OFIRMEV) (J0131 PER 10MG) As Ordered ONE (10:54)
[2021-09-21] MEDS ORDERED: OXYC1TAB23 PO (12:26)
[2021-09-21] MEDS ORDERED: OXYB5TAB10 PO (12:26)
[2021-09-21] MEDS ORDERED: fentaNYL 100 MCG/2 ML INJECTION IV PRN (12:30)
[2021-09-21] MEDS ORDERED: oxyCODONE 5MG TAB PO PRN (12:30)
[2021-09-21] MEDS ORDERED: LR 1,000 ML IV SCH (12:30)
[2021-09-21] MEDS ORDERED: ONDANSETRON 4MG/2ML VIAL IV PRN (12:30)
[2021-09-21] MEDS ORDERED: oxyBUTYnin 5 MG TAB PO PRN (12:35)
[2021-09-21] MEDS ORDERED: PERCOCET 5MG/325MG TAB PO PRN (12:35)
[2021-09-21 13:27] VITALS: BP 176/86
== END 2021-09-21 13:43 | disposition home or self-care (01) ==
LOC: M SDC 08:48
PROVIDERS: ATTEND Urology
DX: C68.0 Malignant neoplasm of urethra (principal); R31.0 Gross hematuria; N13.39 Other hydronephrosis; I10 Essential (primary) hypertension; R73.03 Prediabetes; K58.8 Other irritable bowel syndrome; M48.00 Spinal stenosis, site unspecified; I25.2 Old myocardial infarction; Z87.19 Personal history of other diseases of the digestive system; M19.90 Unspecified osteoarthritis, unspecified site; Z88.1 Allergy status to other antibiotic agents; Z79.899 Other long term (current) drug therapy; Z79.82 Long term (current) use of aspirin; Z79.890 Hormone replacement therapy
CPT/HCPCS: 52332; 52354; 74420; 88108; 88305; C1769; C1894; C2617; J0131; J0690; J1100; J2250; J2405; J3010; Q9967

== ENCOUNTER → 2021-10-09 | Outpatient (CLI) | payer MEDICARE ==
[~2021-10-09] MED LIST changes: -LIDOCAINE 1% MDV 20ML VIAL SQ PRN; -LR 1,000 ML IV ONE; +OXYB5TAB10 PO; +OXYC1TAB23 PO; -ceFAZolin SOD 2 GM in IV 1 EA IV ONE
[2021-10-09 12:03] LABS: HEMATOCRIT 43.7 % (36.0-47.0); HEMOGLOBIN 13.7 g/dl (12.0-15.5); MEAN CORPUSCULAR HEMOGLOBIN 29.1 pg (27.0-33.0); MEAN CORPUSCULAR HGB CONC 31.4 g/dl (32.0-36.5); MEAN CORPUSCULAR VOLUME 92.8 fl (80.0-96.0); PLATELET COUNT, AUTOMATED 230 10^3/uL (150-450); RED BLOOD COUNT 4.71 10^6/uL (4.00-5.40); WHITE BLOOD COUNT 10.1 10^3/uL (4.0-10.0)
[2021-10-09 12:45] LABS: CALCIUM LEVEL 8.9 MG/DL (8.8-10.2); CREATININE FOR GFR 1.32 MG/DL (0.55-1.30); GLOMERULAR FILTRATION RATE 41.4 (>39)
== END ==
LOC: M LAB 11:13
PROVIDERS: ATTEND Urology
DX: Z01.818 Encounter for other preprocedural examination (principal); C80.1 Malignant (primary) neoplasm, unspecified; N39.0 Urinary tract infection, site not specified

== ENCOUNTER → 2021-10-14 | Outpatient (CLI) | payer MEDICARE ==
[~2021-10-14] MED LIST changes: +AMLO1TAB25 PO; +LOSA100T45 PO
== END ==
LOC: M LABSMTC 11:02
PROVIDERS: ATTEND Anesthesiology
DX: Z01.812 Encounter for preprocedural laboratory examination (principal)

== ENCOUNTER 2021-10-17 06:05 | Inpatient (IN) | payer MEDICARE ==
[2021-10-17] VITALS (7 sets, daily range): BP systolic 120–127; BP diastolic 60–63
[~2021-10-17] VITALS: Ht 154.9 cm; Wt 69.4 kg
[~2021-10-17 06:05] MED LIST changes: +HEPARIN SOD (PORCINE) 5000UNITS/ML 1ML VIAL/SYRINGE SQ ONE; +ceFAZolin SOD 2 GM in IV 1 EA IV ONE
[2021-10-17] MEDS ORDERED: LR 1,000 ML IV SCH ×2 (06:30→14:00)
[2021-10-17] MEDS ORDERED: LIDOCAINE 1% SDV 30ML VIAL As Ordered ONE (07:07)
[2021-10-17] MEDS ORDERED: BUPIVACAINE HCL 0.25% 30ML VIAL As Ordered ONE (07:07)
[2021-10-17] MEDS ORDERED: ONDANSETRON 4MG 2ML VIAL As Ordered ONE (07:17)
[2021-10-17] MEDS ORDERED: LIDOCAINE 2% 100MG/5ML SDV (FOR ANES.) As Ordered ONE (07:17)
[2021-10-17] MEDS ORDERED: MIDAZOLAM INJ 2MG/2ML VIAL (J2250 PER 1MG) As Ordered ONE (07:17)
[2021-10-17] MEDS ORDERED: propofoL 200 MG/20 ML VIAL As Ordered ONE (07:17)
[2021-10-17] MEDS ORDERED: ACETAMINOPHEN 1000MG 100ML IV BTL (OFIRMEV) (J0131 PER 10MG) As Ordered ONE ×2 (07:17→14:31)
[2021-10-17] MEDS ORDERED: METOCLOPRAMIDE INJ 10MG/2ML VIAL (J2765 PER 1) As Ordered ONE (07:17)
[2021-10-17] MEDS ORDERED: ROCURONIUM BROMIDE 50 MG/5 ML VIAL As Ordered ONE (07:17)
[2021-10-17] MEDS ORDERED: HYDROmorphone HCL 2MG/ML 1ML VIAL As Ordered ONE (07:17)
[2021-10-17] MEDS ORDERED: fentaNYL 100 MCG/2 ML INJECTION As Ordered ONE (07:17)
[2021-10-17] MEDS ORDERED: dexameTHASONE 4 MG/ML 1ML VIAL (J1100 PER 1MG) As Ordered ONE (07:17)
[2021-10-17] MEDS ORDERED: ONDANSETRON 4MG 2ML VIAL IV PRN ×2 (07:45→14:00)
[2021-10-17] MEDS ORDERED: ACETAMINOPHEN TAB 650MG DOSE (2X325MG) PO PRN (07:45)
[2021-10-17] MEDS ORDERED: ceFAZolin 2 GM/D5W 50 ML IV BAG (J0690 PER 500MG) As Ordered ONE (11:36)
[2021-10-17] MEDS ORDERED: SUGAMMADEX SODIUM 500 MG/5 ML VIAL (BRIDION) As Ordered ONE (13:24)
[2021-10-17] MEDS ORDERED: fentaNYL 100 MCG/2 ML INJECTION IV PRN (14:00)
[2021-10-17] MEDS ORDERED: oxyCODONE 5MG TAB PO PRN (14:00)
[2021-10-17 14:59] LABS: HEMATOCRIT 42.3 % (36.0-47.0); HEMOGLOBIN 13.7 g/dl (12.0-15.5); MEAN CORPUSCULAR HEMOGLOBIN 29.9 pg (27.0-33.0); MEAN CORPUSCULAR HGB CONC 32.4 g/dl (32.0-36.5); MEAN CORPUSCULAR VOLUME 92.4 fl (80.0-96.0); PLATELET COUNT, AUTOMATED 212 10^3/uL (150-450); RED BLOOD COUNT 4.58 10^6/uL (4.00-5.40); WHITE BLOOD COUNT 14.1 10^3/uL (4.0-10.0)
[2021-10-17 15:20] LABS: CALCIUM LEVEL 9.4 MG/DL (8.8-10.2); CREATININE FOR GFR 1.59 MG/DL (0.55-1.30); GLOMERULAR FILTRATION RATE 33.4 (>39); POTASSIUM SERUM 3.9 MEQ/L (3.5-5.1)
[2021-10-17] MEDS: NS 1,000 ML IV SCH (16:25)
[2021-10-17] MEDS: ceFAZolin SOD 1 GM in D5W MINI-BAG PLUS 50 ML IV SCH (16:25)
[2021-10-17] MEDS: PERCOCET 5MG/325MG TAB PO PRN ×2 (19:15→23:29)
[2021-10-17] MEDS: ROSUVASTATIN 10 MG TAB (CRESTOR) PO SCH (21:51)
[2021-10-17] MEDS: DOCUSATE SODIUM 100MG CAPSULE PO SCH (21:51)
[2021-10-17] MEDS: HEPARIN SOD (PORCINE) 5000UNITS/ML 1ML VIAL/SYRINGE SC SCH (21:52)
[2021-10-17] MEDS: METOPROLOL TART 25 MG TABLET PO SCH (21:52)
[2021-10-18] VITALS (8 sets, daily range): BP systolic 121–154; BP diastolic 65–73
[2021-10-18] MEDS: ceFAZolin SOD 1 GM in D5W MINI-BAG PLUS 50 ML IV SCH (00:03)
[2021-10-18] MEDS: NS 1,000 ML IV SCH (00:03)
[2021-10-18] MEDS: PERCOCET 5MG/325MG TAB PO PRN ×4 (04:28→22:12)
[2021-10-18] MEDS: HEPARIN SOD (PORCINE) 5000UNITS/ML 1ML VIAL/SYRINGE SC SCH ×3 (05:15→22:10)
[2021-10-18 05:54] LABS: HEMATOCRIT 35.6 % (36.0-47.0); MEAN CORPUSCULAR HGB CONC 32.9 g/dl (32.0-36.5); MEAN CORPUSCULAR VOLUME 91.3 fl (80.0-96.0); PLATELET COUNT, AUTOMATED 178 10^3/uL (150-450); WHITE BLOOD COUNT 15.2 10^3/uL (4.0-10.0)
[2021-10-18 06:04] LABS: HEMOGLOBIN 11.7 g/dl (12.0-15.5)
[2021-10-18 06:14] LABS: CREATININE FOR GFR 1.51 MG/DL (0.55-1.30); GLOMERULAR FILTRATION RATE 35.5 (>39); POTASSIUM SERUM 4.3 MEQ/L (3.5-5.1)
[2021-10-18] MEDS: DOCUSATE SODIUM 100MG CAPSULE PO SCH ×2 (10:02→22:10)
[2021-10-18] MEDS: METOPROLOL TART 25 MG TABLET PO SCH ×2 (10:07→22:13)
[2021-10-18] MEDS: amLODIPine 5 MG TAB PO SCH (10:08)
[2021-10-18] MEDS: LOSARTAN 50MG TABLET PO SCH (10:08)
[2021-10-18] MEDS: BACTRIM 160MG/800MG DS TAB PO SCH (13:51)
[2021-10-18] MEDS: ROSUVASTATIN 10 MG TAB (CRESTOR) PO SCH (22:11)
[2021-10-19 02:00] VITALS: BP 138/67
[2021-10-19 05:37] LABS: HEMATOCRIT 35.6 % (36.0-47.0); HEMOGLOBIN 11.8 g/dl (12.0-15.5); MEAN CORPUSCULAR HEMOGLOBIN 30.4 pg (27.0-33.0); MEAN CORPUSCULAR HGB CONC 33.1 g/dl (32.0-36.5); MEAN CORPUSCULAR VOLUME 91.8 fl (80.0-96.0); PLATELET COUNT, AUTOMATED 159 10^3/uL (150-450); RED BLOOD COUNT 3.88 10^6/uL (4.00-5.40); WHITE BLOOD COUNT 10.9 10^3/uL (4.0-10.0)
[2021-10-19 05:59] LABS: CALCIUM LEVEL 8.9 MG/DL (8.8-10.2); CREATININE FOR GFR 1.58 MG/DL (0.55-1.30); GLOMERULAR FILTRATION RATE 33.7 (>39); POTASSIUM SERUM 4.2 MEQ/L (3.5-5.1)
[2021-10-19 06:00] VITALS: BP 136/68
[2021-10-19] MEDS: HEPARIN SOD (PORCINE) 5000UNITS/ML 1ML VIAL/SYRINGE SC SCH (06:43)
[2021-10-19] MEDS ORDERED: COLA100C5 PO (07:41)
[2021-10-19] MEDS ORDERED: BACTDSTA PO (07:41)
[2021-10-19] MEDS ORDERED: PERCOCET PO (07:41)
[2021-10-19] MEDS: BACTRIM 160MG/800MG DS TAB PO SCH (08:12)
[2021-10-19] MEDS: DOCUSATE SODIUM 100MG CAPSULE PO SCH ×2 (08:12→08:20)
[2021-10-19] MEDS: LOSARTAN 50MG TABLET PO SCH (08:14)
[2021-10-19] MEDS: amLODIPine 5 MG TAB PO SCH (08:14)
[2021-10-19 08:15] VITALS: BP 141/72
[2021-10-19] MEDS: METOPROLOL TART 25 MG TABLET PO SCH (08:15)
[2021-10-19] MEDS: PERCOCET 5MG/325MG TAB PO PRN (08:19)
== END 2021-10-19 12:25 | disposition home or self-care (01) | DRG 658 ==
LOC: M OR 06:05 → M MS5PR 15:30
PROVIDERS: ADMIT Urology; ATTEND Urology
PROC: 0TT68ZZ Resection of Right Ureter, Via Natural or Artificial Opening Endoscopic (ICD-10-PCS; 2021-10-17)
PROC: 0TP94DZ Removal of Intraluminal Device from Ureter, Percutaneous Endoscopic Approach (ICD-10-PCS; 2021-10-17)
PROC: 8E0W4CZ Robotic Assisted Procedure of Trunk Region, Percutaneous Endoscopic Approach (ICD-10-PCS; 2021-10-17)
PROC: 0TJB8ZZ Inspection of Bladder, Via Natural or Artificial Opening Endoscopic (ICD-10-PCS; 2021-10-17)
PROC: 0TT04ZZ Resection of Right Kidney, Percutaneous Endoscopic Approach (ICD-10-PCS; principal; 2021-10-17 07:30)
DX: C68.0 Malignant neoplasm of urethra (principal); I10 Essential (primary) hypertension; R73.03 Prediabetes; K58.8 Other irritable bowel syndrome; M48.00 Spinal stenosis, site unspecified; I25.2 Old myocardial infarction; M19.90 Unspecified osteoarthritis, unspecified site; Z88.1 Allergy status to other antibiotic agents; Z79.899 Other long term (current) drug therapy; Z79.82 Long term (current) use of aspirin; Z79.890 Hormone replacement therapy; Z87.19 Personal history of other diseases of the digestive system

== ENCOUNTER → 2021-10-25 | Outpatient (CLI) | payer MEDICARE ==
[~2021-10-25] MED LIST changes: +BACTDSTA PO; +COLA100C5 PO; -HEPARIN SOD (PORCINE) 5000UNITS/ML 1ML VIAL/SYRINGE SQ ONE; +PERCOCET PO; -ceFAZolin SOD 2 GM in IV 1 EA IV ONE
[2021-10-25 16:01] LABS: HEMATOCRIT 38.2 % (36.0-47.0); HEMOGLOBIN 12.5 g/dl (12.0-15.5); MEAN CORPUSCULAR HEMOGLOBIN 30.4 pg (27.0-33.0); MEAN CORPUSCULAR HGB CONC 32.7 g/dl (32.0-36.5); MEAN CORPUSCULAR VOLUME 92.9 fl (80.0-96.0); PLATELET COUNT, AUTOMATED 264 10^3/uL (150-450); RED BLOOD COUNT 4.11 10^6/uL (4.00-5.40); WHITE BLOOD COUNT 10.2 10^3/uL (4.0-10.0)
[2021-10-25 16:18] LABS: CALCIUM LEVEL 9.6 MG/DL (8.8-10.2); CREATININE FOR GFR 1.64 MG/DL (0.55-1.30); GLOMERULAR FILTRATION RATE 32.3 (>39); POTASSIUM SERUM 4.5 MEQ/L (3.5-5.1)
== END ==
LOC: M LAB 15:30
PROVIDERS: ATTEND Nurse Practitioner Women's Health
DX: C80.1 Malignant (primary) neoplasm, unspecified (principal)

== ENCOUNTER → 2022-02-08 | Outpatient (CLI) | payer MEDICARE ==
[2022-02-08 11:28] LABS: CALCIUM LEVEL 9.4 MG/DL (8.8-10.2); CREATININE FOR GFR 1.5 MG/DL (0.55-1.30); GLOMERULAR FILTRATION RATE 35.7 (>39); POTASSIUM SERUM 4.6 MEQ/L (3.5-5.1)
== END ==
LOC: M LAB 09:59
PROVIDERS: ATTEND Urology
DX: R31.0 Gross hematuria (principal)

== ENCOUNTER → 2022-02-15 | Outpatient (CLI) | payer MEDICARE ==
[~2022-02-15] MED LIST changes: +ISOVUE-370 76% 100ML VIAL As Ordered ONE
== END ==
LOC: M RAD 14:21
PROVIDERS: ATTEND Urology
DX: R31.0 Gross hematuria (principal)
CPT/HCPCS: 74178; Q9967

== ENCOUNTER → 2022-02-25 | Outpatient (REF) | payer MEDICARE ==
[~2022-02-25] MED LIST changes: -ISOVUE-370 76% 100ML VIAL As Ordered ONE
== END ==
LOC: M SMT 17:19
PROVIDERS: ATTEND Urology
DX: C80.1 Malignant (primary) neoplasm, unspecified (principal)

== ENCOUNTER → 2022-03-04 | Outpatient (CLI) | payer MEDICARE ==
[~2022-03-04] MED LIST changes: +CARV6.25 PO; +LEXA1TAB PO; +NITR4TASL SL
== END ==
LOC: M RAD 13:31
PROVIDERS: ATTEND Urology
DX: C80.1 Malignant (primary) neoplasm, unspecified (principal); R39.9 Unspecified symptoms and signs involving the genitourinary system

== ENCOUNTER → 2022-03-05 | Outpatient (CLI) | payer MEDICARE | LOC: M LABSMTC 09:43 | PROVIDERS: ATTEND Anesthesiology | DX: Z01.818 Encounter for other preprocedural examination (principal); Z11.52 Encounter for screening for COVID-19 ==

== ENCOUNTER 2022-03-07 06:44 | Day surgery (SDC) | payer MEDICARE ==
[~2022-03-07] VITALS: Ht 154.9 cm; Wt 69.9 kg
[2022-03-07] MEDS ORDERED: ceFAZolin SOD 2 GM in IV 1 EA IV ONE (08:00)
[2022-03-07] MEDS ORDERED: ISOVUE-300 61% 50ML VIAL As Ordered ONE (09:23)
[2022-03-07] MEDS ORDERED: ONDANSETRON 4MG 2ML VIAL IV PRN (10:15)
[2022-03-07] MEDS ORDERED: oxyCODONE 5MG TAB PO PRN (10:15)
[2022-03-07] MEDS ORDERED: fentaNYL 100 MCG/2 ML INJECTION IV PRN (10:15)
[2022-03-07] MEDS ORDERED: LR 1,000 ML IV SCH (10:15)
[2022-03-07] MEDS ORDERED: HYDROMORPHONE HCL 0.5 MG/ 0.5 ML SYRINGE (J1170 PER 1) IV PRN (10:15)
[2022-03-07 12:00] VITALS: BP 159/67
== END 2022-03-07 12:10 | disposition home or self-care (01) ==
LOC: M SDC 06:44
PROVIDERS: ATTEND Urology
DX: C67.4 Malignant neoplasm of posterior wall of bladder (principal); C67.0 Malignant neoplasm of trigone of bladder; C67.5 Malignant neoplasm of bladder neck; I10 Essential (primary) hypertension; R73.03 Prediabetes; K58.9 Irritable bowel syndrome, unspecified; M19.90 Unspecified osteoarthritis, unspecified site; M48.00 Spinal stenosis, site unspecified; Z86.73 Personal history of transient ischemic attack (TIA), and cerebral infarction without residual deficits; I25.2 Old myocardial infarction; Z95.5 Presence of coronary angioplasty implant and graft; Z90.5 Acquired absence of kidney; Z79.899 Other long term (current) drug therapy; Z88.1 Allergy status to other antibiotic agents; Z88.8 Allergy status to other drugs, medicaments and biological substances
CPT/HCPCS: 52235; 52332; 74420; 88305; C1769; C2617; J0690; Q9967

== ENCOUNTER → 2022-05-06 | Outpatient (CLI) | payer MEDICARE ==
[2022-05-06 11:23] LABS: APPEARANCE, URINE MANUAL CLEAR (CLEAR); COLOR, URINE MANUAL COLORLESS (YELLOW)
[2022-05-06 11:24] LABS: BILIRUBIN, URINE MANUAL NEGATIVE (NEGATIVE); BLOOD URINE MANUAL POSITIVE (NEGATIVE); GLUCOSE, URINE (UA) MANUAL NEGATIVE (NEGATIVE); KETONE, URINE MANUAL NEGATIVE (NEGATIVE); LEUKOCYTE ESTERASE, URINE MAN POSITIVE (NEGATIVE); NITRITE, URINE MANUAL NEGATIVE (NEGATIVE); PROTEIN, URINE MANUAL NEGATIVE (NEGATIVE); UROBILINOGEN, URINE MANUAL NORMAL (NORMAL)
[2022-05-06 11:30] LABS: HEMATOCRIT 42.1 % (36.0-47.0); HEMOGLOBIN 13.3 g/dl (12.0-15.5); MEAN CORPUSCULAR HEMOGLOBIN 29.6 pg (27.0-33.0); MEAN CORPUSCULAR HGB CONC 31.6 g/dl (32.0-36.5); MEAN CORPUSCULAR VOLUME 93.8 fl (80.0-96.0); PLATELET COUNT, AUTOMATED 188 10^3/uL (150-450); RED BLOOD COUNT 4.49 10^6/uL (4.00-5.40); WHITE BLOOD COUNT 7.9 10^3/uL (4.0-10.0)
[2022-05-06 11:54] LABS: ALBUMIN 3.7 G/DL (3.2-5.2); BILIRUBIN,TOTAL 0.5 MG/DL (0.3-1.2); CALCIUM LEVEL 9.2 MG/DL (8.3-10.6); CREATININE FOR GFR 1.41 MG/DL (0.55-1.30); GLOMERULAR FILTRATION RATE 38.3 (>39); POTASSIUM SERUM 4.7 MMOL/L (3.5-5.1)
[2022-05-06 11:55] LABS: BACTERIA, URINE SMALL AMOUNT; HYALINE CAST, URINE NONE SEEN /lpf (0-1); SQUAMOUS EPITHELIAL CELL URINE SMALL AMOUNT /hpf (SMALL AMT); WBC, URINE TNTC /hpf (0-3)
== END ==
LOC: M LAB 10:54
PROVIDERS: ATTEND Urology
DX: C67.9 Malignant neoplasm of bladder, unspecified (principal); Z79.899 Other long term (current) drug therapy

== ENCOUNTER → 2022-05-20 | Outpatient (CLI) | payer MEDICARE ==
[2022-05-20 12:43] LABS: APPEARANCE, URINE MANUAL CLEAR (CLEAR); COLOR, URINE MANUAL LT YELLOW (YELLOW)
[2022-05-20 12:44] LABS: SPECIFIC GRAVITY,URINE MANUAL 1.005 (1.002-1.035)
[2022-05-20 12:45] LABS: BILIRUBIN, URINE MANUAL NEGATIVE (NEGATIVE); BLOOD URINE MANUAL TRACE (NEGATIVE); GLUCOSE, URINE (UA) MANUAL NEGATIVE (NEGATIVE); KETONE, URINE MANUAL NEGATIVE (NEGATIVE); LEUKOCYTE ESTERASE, URINE MAN TRACE (NEGATIVE); NITRITE, URINE MANUAL NEGATIVE (NEGATIVE); PROTEIN, URINE MANUAL NEGATIVE (NEGATIVE); UROBILINOGEN, URINE MANUAL NORMAL (NORMAL)
[2022-05-20 12:57] LABS: BACTERIA, URINE SMALL AMOUNT; HYALINE CAST, URINE NONE SEEN /lpf (0-1); RBC, URINE 0-1 /hpf (0-3); SQUAMOUS EPITHELIAL CELL URINE SMALL AMOUNT /hpf (SMALL AMT); WBC, URINE 0-1 /hpf (0-3)
== END ==
LOC: M LAB 11:05
PROVIDERS: ATTEND Urology
DX: C67.9 Malignant neoplasm of bladder, unspecified (principal)

== ENCOUNTER → 2022-05-27 | Outpatient (REF) | payer MEDICARE ==
[2022-05-27 13:40] LABS: APPEARANCE, URINE MANUAL CLEAR (CLEAR); BILIRUBIN, URINE MANUAL NEGATIVE (NEGATIVE); BLOOD URINE MANUAL TRACE (NEGATIVE); COLOR, URINE MANUAL YELLOW (YELLOW); GLUCOSE, URINE (UA) MANUAL NEGATIVE (NEGATIVE); KETONE, URINE MANUAL NEGATIVE (NEGATIVE); LEUKOCYTE ESTERASE, URINE MAN NEGATIVE (NEGATIVE); NITRITE, URINE MANUAL NEGATIVE (NEGATIVE); PROTEIN, URINE MANUAL TRACE mg/dL (NEGATIVE); SPECIFIC GRAVITY,URINE MANUAL 1.015 (1.002-1.035); UROBILINOGEN, URINE MANUAL NORMAL (NORMAL)
[2022-05-27 13:53] LABS: BACTERIA, URINE SMALL AMOUNT; HYALINE CAST, URINE NONE SEEN /lpf (0-1); RBC, URINE 0-1 /hpf (0-3); SQUAMOUS EPITHELIAL CELL URINE SMALL AMOUNT /hpf (SMALL AMT)
== END ==
LOC: M SMT 12:38
PROVIDERS: ATTEND Urology
DX: C67.9 Malignant neoplasm of bladder, unspecified (principal)

== ENCOUNTER → 2022-06-03 | Outpatient (REF) | payer MEDICARE ==
[2022-06-03 14:51] LABS: APPEARANCE, URINE MANUAL CLEAR (CLEAR); BILIRUBIN, URINE MANUAL NEGATIVE (NEGATIVE); COLOR, URINE MANUAL LT YELLOW (YELLOW); GLUCOSE, URINE (UA) MANUAL NEGATIVE (NEGATIVE); KETONE, URINE MANUAL NEGATIVE (NEGATIVE); NITRITE, URINE MANUAL NEGATIVE (NEGATIVE); PROTEIN, URINE MANUAL TRACE mg/dL (NEGATIVE); UROBILINOGEN, URINE MANUAL NORMAL (NORMAL)
[2022-06-03 14:52] LABS: BLOOD URINE MANUAL TRACE (NEGATIVE); LEUKOCYTE ESTERASE, URINE MAN NEGATIVE (NEGATIVE)
[2022-06-03 15:25] LABS: SQUAMOUS EPITHELIAL CELL URINE SMALL AMOUNT /hpf (SMALL AMT)
[2022-06-03 15:26] LABS: BACTERIA, URINE NONE SEEN; HYALINE CAST, URINE NONE SEEN /lpf (0-1)
== END ==
LOC: M SMT 12:45
PROVIDERS: ATTEND Urology
DX: C67.9 Malignant neoplasm of bladder, unspecified (principal)

== ENCOUNTER → 2022-06-10 | Outpatient (REF) | payer MEDICARE ==
[2022-06-10 13:34] LABS: APPEARANCE, URINE MANUAL CLEAR (CLEAR); COLOR, URINE MANUAL YELLOW (YELLOW)
[2022-06-10 13:35] LABS: BILIRUBIN, URINE MANUAL NEGATIVE (NEGATIVE); GLUCOSE, URINE (UA) MANUAL NEGATIVE (NEGATIVE); KETONE, URINE MANUAL NEGATIVE (NEGATIVE); NITRITE, URINE MANUAL NEGATIVE (NEGATIVE); PROTEIN, URINE MANUAL NEGATIVE (NEGATIVE); UROBILINOGEN, URINE MANUAL NORMAL (NORMAL)
[2022-06-10 13:37] LABS: BLOOD URINE MANUAL TRACE (NEGATIVE); LEUKOCYTE ESTERASE, URINE MAN TRACE (NEGATIVE)
[2022-06-10 13:45] LABS: WBC, URINE 0-1 /hpf (0-3)
[2022-06-10 13:46] LABS: BACTERIA, URINE SMALL AMOUNT; HYALINE CAST, URINE NONE SEEN /lpf (0-1); SQUAMOUS EPITHELIAL CELL URINE SMALL AMOUNT /hpf (SMALL AMT)
== END ==
LOC: M SMT 13:23
PROVIDERS: ATTEND Urology
DX: C67.9 Malignant neoplasm of bladder, unspecified (principal)

== ENCOUNTER → 2022-06-17 | Outpatient (REF) | payer MEDICARE ==
[2022-06-17 14:44] LABS: APPEARANCE, URINE MANUAL CLEAR (CLEAR); COLOR, URINE MANUAL YELLOW (YELLOW)
[2022-06-17 14:45] LABS: BILIRUBIN, URINE MANUAL NEGATIVE (NEGATIVE); BLOOD URINE MANUAL POSITIVE (NEGATIVE); GLUCOSE, URINE (UA) MANUAL NEGATIVE (NEGATIVE); KETONE, URINE MANUAL NEGATIVE (NEGATIVE); LEUKOCYTE ESTERASE, URINE MAN NEGATIVE (NEGATIVE); NITRITE, URINE MANUAL NEGATIVE (NEGATIVE); PROTEIN, URINE MANUAL TRACE mg/dL (NEGATIVE); SPECIFIC GRAVITY,URINE MANUAL 1.002 (1.002-1.035); UROBILINOGEN, URINE MANUAL NORMAL (NORMAL)
[2022-06-17 14:59] LABS: BACTERIA, URINE MOD AMOUNT; HYALINE CAST, URINE NONE SEEN /lpf (0-1); MUCUS, URINE SMALL AMOUNT (NEGATIVE); SQUAMOUS EPITHELIAL CELL URINE MOD AMOUNT /hpf (SMALL AMT)
== END ==
LOC: M SMT 13:00
PROVIDERS: ATTEND Urology
DX: C67.9 Malignant neoplasm of bladder, unspecified (principal)

== ENCOUNTER → 2022-06-24 | Outpatient (REF) | payer MEDICARE ==
[2022-06-24 14:00] LABS: APPEARANCE, URINE CLEAR (CLEAR); BACTERIA, URINE AUTO NEGATIVE (NEGATIVE); BILIRUBIN, URINE AUTO NEGATIVE (NEGATIVE); BLOOD, URINE BLOOD 1+ (NEGATIVE); COLOR, URINE STRAW (YELLOW); GLUCOSE, URINE (UA) AUTO NEGATIVE (NEGATIVE); KETONE, URINE AUTO NEGATIVE (NEGATIVE); LEUKOCYTE ESTERASE, URINE AUTO NEGATIVE (NEGATIVE); NITRITE, URINE AUTO NEGATIVE (NEGATIVE); PROTEIN, URINE AUTO NEGATIVE (NEGATIVE); RBC, URINE AUTO 1 /HPF (0-3); SQUAMOUS EPITHELIAL CELL UR AU 0 /HPF (0-6); UROBILINOGEN, URINE AUTO 0.2 mg/dL (0.0-2.0); WBC, URINE AUTO 0 /HPF (0-3)
== END ==
LOC: M SMT 12:57
PROVIDERS: ATTEND Urology
DX: C67.9 Malignant neoplasm of bladder, unspecified (principal)

== ENCOUNTER → 2022-07-15 | Outpatient (CLI) | payer MEDICARE | LOC: M WUC 12:12 | PROVIDERS: ATTEND Internal Medicine | DX: M19.90 Unspecified osteoarthritis, unspecified site (principal) ==

== ENCOUNTER → 2022-08-02 | Outpatient (REF) | payer MEDICARE ==
[~2022-08-02] MED LIST changes: +ASPI-655 PO; -ASPI1CHW3 PO
== END ==
LOC: M SMT 16:56
PROVIDERS: ATTEND Urology
DX: C80.1 Malignant (primary) neoplasm, unspecified (principal)

== ENCOUNTER → 2022-08-05 | Outpatient (REF) | payer MEDICARE ==
[~2022-08-05] MED LIST changes: -ASPI-655 PO; +ASPI1CHW3 PO
== END ==
LOC: M LAB REF 16:32
PROVIDERS: ATTEND Internal Medicine
DX: M13.80 Other specified arthritis, unspecified site (principal)

== ENCOUNTER → 2022-08-26 | Outpatient (REF) | payer MEDICARE ==
[~2022-08-26] MED LIST changes: +ASPI-655 PO; -ASPI1CHW3 PO
== END ==
LOC: M LAB REF 12:10
PROVIDERS: ATTEND Internal Medicine
DX: M06.4 Inflammatory polyarthropathy (principal)

== ENCOUNTER → 2022-10-03 | Outpatient (REF) | payer MEDICARE ==
[~2022-10-03] MED LIST changes: -LOSA100T45 PO; +LOSA100T46 PO
== END ==
LOC: M LAB REF 11:54
PROVIDERS: ATTEND Internal Medicine
DX: M25.50 Pain in unspecified joint (principal)

== ENCOUNTER → 2022-11-07 | Outpatient (CLI) | payer MEDICARE ==
[~2022-11-07] MED LIST changes: -ROSU20TA5 PO; +ROSU20TA61 PO
[2022-11-07 14:54] LABS: BASO # 0.1 10^3/uL (0.0-0.2); BASO % 0.6 % (0.0-1.0); EOS # 0.4 10^3/uL (0.0-0.5); EOS % 2.8 % (0.0-3.0); HEMATOCRIT 43.8 % (36.0-47.0); HEMOGLOBIN 13.2 g/dl (12.0-15.5); LYMPH # 1.7 10^3/uL (1.5-5.0); LYMPH % 13.6 % (24.0-44.0); MEAN CORPUSCULAR HEMOGLOBIN 28.4 pg (27.0-33.0); MEAN CORPUSCULAR HGB CONC 30.1 g/dl (32.0-36.5); MEAN CORPUSCULAR VOLUME 94.2 fl (80.0-96.0); MONO # 1.4 10^3/uL (0.0-0.8); MONO % 11.3 % (2.0-8.0); NEUTROPHILS # 8.9 10^3/uL (1.5-8.5); NEUTROPHILS % 71.1 % (36.0-66.0); PLATELET COUNT, AUTOMATED 359 10^3/uL (150-450); RED BLOOD COUNT 4.65 10^6/uL (4.00-5.40); WHITE BLOOD COUNT 12.6 10^3/uL (4.0-10.0)
[2022-11-07 15:16] LABS: ALBUMIN 3.8 G/DL (3.2-5.2); ALKALINE PHOSPHATASE 87 U/L (46-116); ALT/SGPT 22 U/L (7.0-40); AST/SGOT < 8 U/L (<34); BILIRUBIN,TOTAL 0.3 MG/DL (0.3-1.2); BLOOD UREA NITROGEN 31 MG/DL (9-23); CALCIUM LEVEL 10.4 MG/DL (8.3-10.6); CARBON DIOXIDE LEVEL 27 MMOL/L (20-31); CHLORIDE LEVEL 103 MMOL/L (98-107); CREATININE FOR GFR 1.24 MG/DL (0.55-1.30); GLOMERULAR FILTRATION RATE 44.4 (>39); GLUCOSE, FASTING 95 MG/DL (74-106); POTASSIUM SERUM 4.9 MMOL/L (3.5-5.1); RHEUMATOID FACTOR QUANT < 3.5 IU/ML (<14); SODIUM LEVEL 139 MMOL/L (136-145)
[2022-11-07 15:59] LABS: ERYTHROCYTE SEDIMENTATION RATE 90 mm/hr (0-30)
== END ==
LOC: M PLALAB 09:19
PROVIDERS: ATTEND Internal Medicine Infectious Disease
DX: R70.0 Elevated erythrocyte sedimentation rate (principal)

== ENCOUNTER → 2022-12-20 | Outpatient (REF) | payer MEDICARE | LOC: M SMT 16:58 | PROVIDERS: ATTEND Urology | DX: C67.9 Malignant neoplasm of bladder, unspecified (principal); C80.1 Malignant (primary) neoplasm, unspecified ==

== ENCOUNTER 2022-12-25 11:37 | Emergency (ER) | payer MEDICARE ==
[2022-12-25] MEDS ORDERED: HYDR-3713 (11:52)
[2022-12-25] MEDS ORDERED: ALPR0.25 (11:52)
[2022-12-25] MEDS ORDERED: NS 1,000 ML IV ONE (15:40)
[2022-12-25] MEDS ORDERED: MORPHINE 4 MG/ML 1ML VIAL IV ONE (15:40)
[2022-12-25 16:43] LABS: BASO # 0.1 10^3/uL (0.0-0.2); BASO % 0.2 % (0.0-1.0); HEMOGLOBIN 13.8 g/dl (12.0-15.5); LYMPH # 1.7 10^3/uL (1.5-5.0); LYMPH % 7.6 % (24.0-44.0); MEAN CORPUSCULAR HEMOGLOBIN 28.3 pg (27.0-33.0); MEAN CORPUSCULAR HGB CONC 32.1 g/dl (32.0-36.5); MEAN CORPUSCULAR VOLUME 88.3 fl (80.0-96.0); MONO # 1.1 10^3/uL (0.0-0.8); NEUTROPHILS # 18.9 10^3/uL (1.5-8.5); NEUTROPHILS % 86.1 % (36.0-66.0); PLATELET COUNT, AUTOMATED 279 10^3/uL (150-450); RED BLOOD COUNT 4.87 10^6/uL (4.00-5.40)
[2022-12-25 17:00] LABS: ERYTHROCYTE SEDIMENTATION RATE 82 mm/hr (0-30)
[2022-12-25 17:04] LABS: ALBUMIN 3.8 G/DL (3.2-5.2); BILIRUBIN,DIRECT 0.1 MG/DL (<0.4); BILIRUBIN,TOTAL 0.4 MG/DL (0.3-1.2); C REACTIVE PROTEIN QUANTITATIV 3.1 MG/DL (<1.0); CALCIUM LEVEL 10.2 MG/DL (8.3-10.6); CREATININE FOR GFR 1.04 MG/DL (0.55-1.30); GLOMERULAR FILTRATION RATE 54.3 (>32); POTASSIUM SERUM 4.4 MMOL/L (3.5-5.1); TOTAL PROTEIN 7.3 G/DL (5.7-8.2)
[2022-12-25 17:29] LABS: INR 1.06; PROTHROMBIN TIME 13.5 SECONDS (12.5-14.5)
[2022-12-25 17:30] LABS: PARTIAL THROMBOPLASTIN TIME 27.8 SECONDS (24.8-34.2)
[2022-12-25] MEDS ORDERED: MORPHINE 2 MG/ML 1ML VIAL IV ONE ×2 (18:40→21:05)
[2022-12-25 20:58] VITALS: BP 179/72; TEMP 98; O2SAT 93
== END 2022-12-25 21:24 | disposition short-term general hospital (02) ==
LOC: EDBD 11:37 → M ED 11:37
DX: R26.2 Difficulty in walking, not elsewhere classified (principal); C79.51 Secondary malignant neoplasm of bone; I10 Essential (primary) hypertension; E78.5 Hyperlipidemia, unspecified; F41.9 Anxiety disorder, unspecified; G47.33 Obstructive sleep apnea (adult) (pediatric); K58.9 Irritable bowel syndrome, unspecified; C64.9 Malignant neoplasm of unspecified kidney, except renal pelvis; Z88.1 Allergy status to other antibiotic agents; Z88.8 Allergy status to other drugs, medicaments and biological substances; Z79.82 Long term (current) use of aspirin; Z79.899 Other long term (current) drug therapy

== ENCOUNTER → 2023-02-11 | Outpatient (CLI) | payer MEDICARE ==
[~2023-02-11] MED LIST changes: +ALPR0.25; +CARV3.12; +HYDR-3713; -OXYB5TAB10 PO; +OXYB5TAB11 PO; +OXYC-517; +OXYC10TA12 PO
== END ==
LOC: M ONCR 02-09 15:00
PROVIDERS: ATTEND General Practice
DX: C79.51 Secondary malignant neoplasm of bone (principal); C67.9 Malignant neoplasm of bladder, unspecified; T81.31XA Disruption of external operation (surgical) wound, not elsewhere classified, initial encounter; Z71.2 Person consulting for explanation of examination or test findings; Z79.899 Other long term (current) drug therapy; Z80.0 Family history of malignant neoplasm of digestive organs; Z80.49 Family history of malignant neoplasm of other genital organs; Z88.1 Allergy status to other antibiotic agents; Z88.8 Allergy status to other drugs, medicaments and biological substances; Z90.5 Acquired absence of kidney; Z92.3 Personal history of irradiation

== ENCOUNTER → 2023-03-11 | Outpatient (CLI) | payer MEDICARE ==
[~2023-03-11] VITALS: Ht 154.9 cm; Wt 59.8 kg
[~2023-03-11] MED LIST changes: +ACET-683 PO; -CARV3.12; +CARV3.12 PO; +GABA-1171 PO; +MORP15TA2 PO; +SENN-186 PO
[2023-03-11 08:09] VITALS: BP 130/81; O2SAT 95
== END ==
LOC: M PAL 07:40
PROVIDERS: ATTEND Nurse Practitioner Adult Health
DX: C79.51 Secondary malignant neoplasm of bone (principal); C67.9 Malignant neoplasm of bladder, unspecified; G89.3 Neoplasm related pain (acute) (chronic); Z51.5 Encounter for palliative care; K59.00 Constipation, unspecified; M54.50 Low back pain, unspecified; R11.2 Nausea with vomiting, unspecified; R30.0 Dysuria; R63.4 Abnormal weight loss; R35.1 Nocturia; R53.1 Weakness; R53.81 Other malaise; R53.83 Other fatigue; R59.0 Localized enlarged lymph nodes; R63.0 Anorexia; T81.30XA Disruption of wound, unspecified, initial encounter; Z74.1 Need for assistance with personal care; Z79.891 Long term (current) use of opiate analgesic; Z79.899 Other long term (current) drug therapy; Z80.0 Family history of malignant neoplasm of digestive organs; Z80.49 Family history of malignant neoplasm of other genital organs; Z88.1 Allergy status to other antibiotic agents; Z88.8 Allergy status to other drugs, medicaments and biological substances; Z90.5 Acquired absence of kidney; Z92.3 Personal history of irradiation; Z99.89 Dependence on other enabling machines and devices

== ENCOUNTER → 2023-03-17 | Outpatient (CLI) | payer MEDICARE ==
[~2023-03-17] VITALS: Ht 154.9 cm; Wt 59.5 kg
[~2023-03-17] MED LIST changes: +LIDOCAINE 1% MDV 20ML VIAL As Ordered ONE; +LIDOCAINE W/EPINEPHRINE 1% 20ML VIAL As Ordered ONE; +MIDAZOLAM INJ 2MG/2ML VIAL As Ordered ONE; +MIRA3350 PO; +MORP-69 PO; +NS 1,000 ML IV SCH; +PROC5TAB57 PO; +ceFAZolin 2 GM/D5W 50 ML IV BAG As Ordered ONE; +ceFAZolin SOD 2 GM in IV 1 EA IV ONE; +fentaNYL 100 MCG/2 ML INJECTION As Ordered ONE
[2023-03-17 09:47] VITALS: TEMP 96.5
[2023-03-17 11:45] VITALS: BP 114/59; O2SAT 96
== END ==
LOC: M IRPRO 09:34
PROVIDERS: ATTEND Internal Medicine Hematology & Oncology
DX: C41.9 Malignant neoplasm of bone and articular cartilage, unspecified (principal)
CPT/HCPCS: 36571; 99152; 99153; C1887; J0690; J2250; J3010

== ENCOUNTER → 2023-03-19 | Outpatient (CLI) | payer MEDICARE ==
[~2023-03-19] MED LIST changes: -LIDOCAINE 1% MDV 20ML VIAL As Ordered ONE; -LIDOCAINE W/EPINEPHRINE 1% 20ML VIAL As Ordered ONE; -MIDAZOLAM INJ 2MG/2ML VIAL As Ordered ONE; -NS 1,000 ML IV SCH; -ceFAZolin 2 GM/D5W 50 ML IV BAG As Ordered ONE; -ceFAZolin SOD 2 GM in IV 1 EA IV ONE; -fentaNYL 100 MCG/2 ML INJECTION As Ordered ONE
== END ==
LOC: M PAL 08:01
PROVIDERS: ATTEND Nurse Practitioner Adult Health
DX: C79.51 Secondary malignant neoplasm of bone (principal); C67.9 Malignant neoplasm of bladder, unspecified; G89.3 Neoplasm related pain (acute) (chronic); T81.30XA Disruption of wound, unspecified, initial encounter; Z51.5 Encounter for palliative care; K59.00 Constipation, unspecified; M54.50 Low back pain, unspecified; R11.2 Nausea with vomiting, unspecified; R63.4 Abnormal weight loss; R35.1 Nocturia; R53.1 Weakness; R53.83 Other fatigue; R53.81 Other malaise; R63.0 Anorexia; Z74.1 Need for assistance with personal care; Z79.891 Long term (current) use of opiate analgesic; Z79.899 Other long term (current) drug therapy; Z80.0 Family history of malignant neoplasm of digestive organs; Z80.49 Family history of malignant neoplasm of other genital organs; Z88.1 Allergy status to other antibiotic agents; Z88.8 Allergy status to other drugs, medicaments and biological substances; Z90.5 Acquired absence of kidney; Z92.3 Personal history of irradiation; Z99.89 Dependence on other enabling machines and devices; Z90.710 Acquired absence of both cervix and uterus

== ENCOUNTER → 2023-03-24 | Outpatient (CLI) | payer MEDICARE | LOC: M PLARAD 11:08 | PROVIDERS: ATTEND Internal Medicine Hematology & Oncology | DX: C64.9 Malignant neoplasm of unspecified kidney, except renal pelvis (principal) | CPT/HCPCS: 78815; A9552 ==

== ENCOUNTER → 2023-03-26 | Outpatient (CLI) | payer MEDICARE | LOC: M PAL 10:58 | PROVIDERS: ATTEND Nurse Practitioner Adult Health | DX: C79.51 Secondary malignant neoplasm of bone (principal); C67.9 Malignant neoplasm of bladder, unspecified; G89.3 Neoplasm related pain (acute) (chronic); T81.31XA Disruption of external operation (surgical) wound, not elsewhere classified, initial encounter; Z51.5 Encounter for palliative care; R11.0 Nausea; R63.4 Abnormal weight loss; R35.1 Nocturia; R53.1 Weakness; R53.83 Other fatigue; R53.81 Other malaise; R63.0 Anorexia; Z79.891 Long term (current) use of opiate analgesic; Z79.899 Other long term (current) drug therapy; Z80.0 Family history of malignant neoplasm of digestive organs; Z80.49 Family history of malignant neoplasm of other genital organs; Z88.1 Allergy status to other antibiotic agents; Z88.8 Allergy status to other drugs, medicaments and biological substances; Z90.5 Acquired absence of kidney; Z92.3 Personal history of irradiation; Z90.710 Acquired absence of both cervix and uterus; Z99.89 Dependence on other enabling machines and devices ==

== ENCOUNTER → 2023-04-18 | Outpatient (REF) | payer MEDICARE ==
[~2023-04-18] MED LIST changes: +FAMO20TA PO
== END ==
LOC: M SFHCWOUN 18:06
PROVIDERS: ATTEND Physician Assistant
DX: M79.89 Other specified soft tissue disorders (principal)

== ENCOUNTER → 2023-05-02 | Outpatient (CLI) | payer MEDICARE ==
[~2023-05-02] MED LIST changes: +POTA-151 PO
== END ==
LOC: M PAL 08:07
PROVIDERS: ATTEND Nurse Practitioner Adult Health
DX: C79.51 Secondary malignant neoplasm of bone (principal); C67.9 Malignant neoplasm of bladder, unspecified; G89.3 Neoplasm related pain (acute) (chronic); T81.31XA Disruption of external operation (surgical) wound, not elsewhere classified, initial encounter; Z51.5 Encounter for palliative care; K59.00 Constipation, unspecified; R11.0 Nausea; R63.4 Abnormal weight loss; R35.1 Nocturia; R53.1 Weakness; R53.83 Other fatigue; R53.81 Other malaise; R63.0 Anorexia; Z66 Do not resuscitate; Z79.891 Long term (current) use of opiate analgesic; Z79.899 Other long term (current) drug therapy; Z80.0 Family history of malignant neoplasm of digestive organs; Z80.49 Family history of malignant neoplasm of other genital organs; Z88.1 Allergy status to other antibiotic agents; Z88.8 Allergy status to other drugs, medicaments and biological substances; Z90.5 Acquired absence of kidney; Z92.3 Personal history of irradiation; Z99.89 Dependence on other enabling machines and devices

== ENCOUNTER → 2023-06-26 | Outpatient (CLI) | payer MEDICARE ==
[~2023-06-26] VITALS: Ht 154.9 cm; Wt 54.0 kg
[~2023-06-26] MED LIST changes: +ESOM0.1C PO; -OXYB5TAB11 PO; +OXYB5TAB14 PO
[2023-06-26 14:22] VITALS: BP 134/85; O2SAT 97
== END ==
LOC: M PAL 13:33
PROVIDERS: ATTEND Nurse Practitioner Adult Health
DX: C79.51 Secondary malignant neoplasm of bone (principal); C67.9 Malignant neoplasm of bladder, unspecified; G89.3 Neoplasm related pain (acute) (chronic); T81.31XA Disruption of external operation (surgical) wound, not elsewhere classified, initial encounter; Z51.5 Encounter for palliative care; K59.00 Constipation, unspecified; R11.0 Nausea; R63.4 Abnormal weight loss; R35.1 Nocturia; R53.1 Weakness; R53.83 Other fatigue; R53.81 Other malaise; R63.0 Anorexia; Z66 Do not resuscitate; Z79.891 Long term (current) use of opiate analgesic; Z79.899 Other long term (current) drug therapy; Z80.0 Family history of malignant neoplasm of digestive organs; Z80.49 Family history of malignant neoplasm of other genital organs; Z88.1 Allergy status to other antibiotic agents; Z88.8 Allergy status to other drugs, medicaments and biological substances; Z90.5 Acquired absence of kidney; Z92.3 Personal history of irradiation; Z99.89 Dependence on other enabling machines and devices

== ENCOUNTER → 2023-07-31 | Outpatient (CLI) | payer MEDICARE | LOC: M PAL 07:42 | PROVIDERS: ATTEND Nurse Practitioner Family | DX: C79.51 Secondary malignant neoplasm of bone (principal); C67.9 Malignant neoplasm of bladder, unspecified; G89.3 Neoplasm related pain (acute) (chronic); T81.31XA Disruption of external operation (surgical) wound, not elsewhere classified, initial encounter; Z51.5 Encounter for palliative care; K59.00 Constipation, unspecified; R11.0 Nausea; R63.4 Abnormal weight loss; R35.1 Nocturia; R53.1 Weakness; R53.83 Other fatigue; R53.81 Other malaise; R63.0 Anorexia; Z66 Do not resuscitate; Z79.891 Long term (current) use of opiate analgesic; Z79.899 Other long term (current) drug therapy; Z80.0 Family history of malignant neoplasm of digestive organs; Z80.49 Family history of malignant neoplasm of other genital organs; Z88.1 Allergy status to other antibiotic agents; Z88.8 Allergy status to other drugs, medicaments and biological substances; Z90.5 Acquired absence of kidney; Z92.3 Personal history of irradiation; Z99.89 Dependence on other enabling machines and devices ==

== ENCOUNTER → 2023-08-01 | Outpatient (CLI) | payer MEDICARE ==
[~2023-08-01] MED LIST changes: +GASTROGRAFIN SOLUTION 30ML As Ordered ONE; +ISOVUE-370 76% 100ML VIAL As Ordered ONE
== END ==
LOC: M RAD 12:36
PROVIDERS: ATTEND Specialist
DX: C67.9 Malignant neoplasm of bladder, unspecified (principal); C78.7 Secondary malignant neoplasm of liver and intrahepatic bile duct; M89.8X8 Other specified disorders of bone, other site
CPT/HCPCS: 71260; 74177; Q9963; Q9967

== ENCOUNTER → 2023-08-20 | Outpatient (CLI) | payer MEDICARE ==
[~2023-08-20] MED LIST changes: -GASTROGRAFIN SOLUTION 30ML As Ordered ONE; -ISOVUE-370 76% 100ML VIAL As Ordered ONE; +PROHANCE 279.3MG/ML 15ML VIAL As Ordered ONE
== END ==
LOC: M RAD 14:46
PROVIDERS: ATTEND Specialist
DX: C68.0 Malignant neoplasm of urethra (principal)
CPT/HCPCS: 72158; A9576

== ENCOUNTER → 2023-10-16 | Outpatient (CLI) | payer MEDICARE ==
[~2023-10-16] MED LIST changes: -ESOM0.1C PO; +ESOM20CA2 PO; +MAGN400T2 PO; +METO5TAB2 PO; +MIRT1TAB PO; -PROHANCE 279.3MG/ML 15ML VIAL As Ordered ONE
== END ==
LOC: M PAL 13:47
PROVIDERS: ATTEND Nurse Practitioner Adult Health
DX: G89.3 Neoplasm related pain (acute) (chronic) (principal); C79.51 Secondary malignant neoplasm of bone; C67.9 Malignant neoplasm of bladder, unspecified; Z51.5 Encounter for palliative care; R63.0 Anorexia; Z66 Do not resuscitate; Z79.891 Long term (current) use of opiate analgesic; Z79.899 Other long term (current) drug therapy; Z80.0 Family history of malignant neoplasm of digestive organs; Z80.49 Family history of malignant neoplasm of other genital organs; Z88.1 Allergy status to other antibiotic agents; Z88.8 Allergy status to other drugs, medicaments and biological substances; Z90.5 Acquired absence of kidney; Z92.21 Personal history of antineoplastic chemotherapy; Z92.3 Personal history of irradiation; Z99.89 Dependence on other enabling machines and devices

== ENCOUNTER → 2023-10-27 | Outpatient (CLI) | payer MEDICARE ==
[~2023-10-27] MED LIST changes: +GASTROGRAFIN SOLUTION 30ML As Ordered ONE; +ISOVUE-370 76% 100ML VIAL As Ordered ONE
== END ==
LOC: M RAD 12:45
PROVIDERS: ATTEND Specialist
DX: M54.16 Radiculopathy, lumbar region (principal); M81.0 Age-related osteoporosis without current pathological fracture
CPT/HCPCS: 71260; 74177; Q9963; Q9967

== ENCOUNTER → 2023-12-09 | Outpatient (CLI) | payer MEDICARE ==
[~2023-12-09] VITALS: Ht 154.9 cm; Wt 47.7 kg
[~2023-12-09] MED LIST changes: -GASTROGRAFIN SOLUTION 30ML As Ordered ONE; -ISOVUE-370 76% 100ML VIAL As Ordered ONE; +LASI20TA3 PO
[2023-12-09 13:47] VITALS: BP 120/76; O2SAT 97
== END ==
LOC: M PAL 13:26
PROVIDERS: ATTEND Nurse Practitioner Adult Health
DX: G89.3 Neoplasm related pain (acute) (chronic) (principal); G62.9 Polyneuropathy, unspecified; C79.51 Secondary malignant neoplasm of bone; C67.9 Malignant neoplasm of bladder, unspecified; Z51.5 Encounter for palliative care; R63.0 Anorexia; Z66 Do not resuscitate; Z79.891 Long term (current) use of opiate analgesic; Z79.899 Other long term (current) drug therapy; Z80.0 Family history of malignant neoplasm of digestive organs; Z80.49 Family history of malignant neoplasm of other genital organs; Z88.1 Allergy status to other antibiotic agents; Z88.8 Allergy status to other drugs, medicaments and biological substances; Z90.5 Acquired absence of kidney; Z92.21 Personal history of antineoplastic chemotherapy; Z92.3 Personal history of irradiation; Z99.89 Dependence on other enabling machines and devices

== ENCOUNTER → 2024-01-20 | Outpatient (CLI) | payer MEDICARE ==
[~2024-01-20] VITALS: Ht 154.9 cm; Wt 50.0 kg
[~2024-01-20] MED LIST changes: +MORP30TASA PO; -ROSU20TA61 PO; +ROSU20TA86 PO
[2024-01-20 14:18] VITALS: BP 116/75; O2SAT 97
== END ==
LOC: M PAL 14:11
PROVIDERS: ATTEND Nurse Practitioner Adult Health
DX: G89.3 Neoplasm related pain (acute) (chronic) (principal); G62.9 Polyneuropathy, unspecified; C79.51 Secondary malignant neoplasm of bone; C67.9 Malignant neoplasm of bladder, unspecified; S31.000A Unspecified open wound of lower back and pelvis without penetration into retroperitoneum, initial encounter; Z51.5 Encounter for palliative care; R63.0 Anorexia; Z66 Do not resuscitate; Z79.891 Long term (current) use of opiate analgesic; Z79.899 Other long term (current) drug therapy; Z80.0 Family history of malignant neoplasm of digestive organs; Z80.49 Family history of malignant neoplasm of other genital organs; Z88.1 Allergy status to other antibiotic agents; Z88.8 Allergy status to other drugs, medicaments and biological substances; Z90.5 Acquired absence of kidney; Z92.21 Personal history of antineoplastic chemotherapy; Z92.3 Personal history of irradiation; Z99.89 Dependence on other enabling machines and devices; Z90.49 Acquired absence of other specified parts of digestive tract

== ENCOUNTER → 2024-02-17 | Outpatient (CLI) | payer MEDICARE ==
[~2024-02-17] MED LIST changes: +TRIA1CR80 TOP
== END ==
LOC: M PAL 14:15
PROVIDERS: ATTEND Nurse Practitioner Adult Health
DX: Z53.21 Procedure and treatment not carried out due to patient leaving prior to being seen by health care provider (principal)

== ENCOUNTER → 2024-03-05 | Outpatient (CLI) | payer MEDICARE ==
[~2024-03-05] MED LIST changes: +GASTROGRAFIN SOLUTION 30ML As Ordered ONE; +ISOVUE-370 76% 100ML VIAL As Ordered ONE
== END ==
LOC: M RAD 13:47
PROVIDERS: ATTEND Internal Medicine Hematology & Oncology
DX: C68.0 Malignant neoplasm of urethra (principal)
CPT/HCPCS: 71260; 74177; J1642; Q9963; Q9967

== ENCOUNTER → 2024-03-24 | Outpatient (CLI) | payer MEDICARE ==
[~2024-03-24] VITALS: Ht 154.9 cm; Wt 48.0 kg
[~2024-03-24] MED LIST changes: -GASTROGRAFIN SOLUTION 30ML As Ordered ONE; -ISOVUE-370 76% 100ML VIAL As Ordered ONE
[2024-03-24 09:37] VITALS: BP 128/90; O2SAT 97
== END ==
LOC: M PAL 09:24
PROVIDERS: ATTEND Nurse Practitioner Adult Health
DX: G89.3 Neoplasm related pain (acute) (chronic) (principal); R63.0 Anorexia; C67.9 Malignant neoplasm of bladder, unspecified; G62.9 Polyneuropathy, unspecified; C79.51 Secondary malignant neoplasm of bone; S31.000A Unspecified open wound of lower back and pelvis without penetration into retroperitoneum, initial encounter; Z51.5 Encounter for palliative care; Z66 Do not resuscitate; Z79.620 Long term (current) use of immunosuppressive biologic; Z79.891 Long term (current) use of opiate analgesic; Z79.899 Other long term (current) drug therapy; Z80.0 Family history of malignant neoplasm of digestive organs; Z80.49 Family history of malignant neoplasm of other genital organs; Z88.1 Allergy status to other antibiotic agents; Z88.8 Allergy status to other drugs, medicaments and biological substances; Z90.5 Acquired absence of kidney; Z92.21 Personal history of antineoplastic chemotherapy; Z92.3 Personal history of irradiation; Z99.89 Dependence on other enabling machines and devices; Z90.49 Acquired absence of other specified parts of digestive tract

== ENCOUNTER 2024-04-20 11:21 | Outpatient (RCR) | payer MEDICARE ==
[2023-02-10 14:26] VITALS: BP 127/89; O2SAT 95
[2023-02-10 16:24] LABS: BASO # 0.1 10^3/uL (0.0-0.2); BASO % 0.6 % (0.0-1.0); EOS # 0.2 10^3/uL (0.0-0.5); EOS % 1.2 % (0.0-3.0); HEMATOCRIT 38.3 % (36.0-47.0); LYMPH # 1.6 10^3/uL (1.5-5.0); LYMPH % 12.7 % (24.0-44.0); MEAN CORPUSCULAR HEMOGLOBIN 27.3 pg (27.0-33.0); MEAN CORPUSCULAR HGB CONC 31.3 g/dl (32.0-36.5); MONO # 1.4 10^3/uL (0.0-0.8); MONO % 11.3 % (2.0-8.0); NEUTROPHILS # 9.3 10^3/uL (1.5-8.5); NEUTROPHILS % 73.6 % (36.0-66.0); PLATELET COUNT, AUTOMATED 467 10^3/uL (150-450); WHITE BLOOD COUNT 12.6 10^3/uL (4.0-10.0)
[2023-02-10 16:49] LABS: ALBUMIN 3.3 G/DL (3.2-5.2); ALKALINE PHOSPHATASE 236 U/L (46-116); ALT/SGPT 31 U/L (7.0-40); AST/SGOT 37 U/L (<34); BILIRUBIN,TOTAL 0.5 MG/DL (0.3-1.2); BLOOD UREA NITROGEN 22 MG/DL (9-23); CARBON DIOXIDE LEVEL 27 MMOL/L (20-31); CHLORIDE LEVEL 100 MMOL/L (98-107); CREATININE FOR GFR 0.86 MG/DL (0.55-1.30); GLOMERULAR FILTRATION RATE > 60.0 (>32); GLUCOSE, FASTING 140 MG/DL (74-106); POTASSIUM SERUM 4.4 MMOL/L (3.5-5.1); SODIUM LEVEL 134 MMOL/L (136-145); TOTAL PROTEIN 8.1 G/DL (5.7-8.2)
[2023-02-10 16:57] LABS: FOLATE 18.3 NG/ML (>5.4)
[2023-02-11 14:33] LABS: APPEARANCE, URINE CLOUDY (CLEAR); BACTERIA, URINE AUTO 2+ (NEGATIVE); BILIRUBIN, URINE AUTO NEGATIVE (NEGATIVE); BLOOD, URINE BLOOD 1+ (NEGATIVE); COLOR, URINE YELLOW (YELLOW); GLUCOSE, URINE (UA) AUTO NEGATIVE (NEGATIVE); KETONE, URINE AUTO NEGATIVE (NEGATIVE); LEUKOCYTE ESTERASE, URINE AUTO 3+ (NEGATIVE); MUCUS, URINE LARGE (NEGATIVE); NITRITE, URINE AUTO POSITIVE (NEGATIVE); PROTEIN, URINE AUTO 1+ mg/dL (NEGATIVE); RBC, URINE AUTO 6 /HPF (0-3); SPECIFIC GRAVITY URINE AUTO 1.018 (1.002-1.035); SQUAMOUS EPITHELIAL CELL UR AU 4 /HPF (0-6); UROBILINOGEN, URINE AUTO 0.2 mg/dL (0.0-2.0); WBC, URINE AUTO TNTC /HPF (0-3)
[2023-02-17 14:19] VITALS: BP 135/81; O2SAT 95
[2023-02-17 16:58] LABS: INR 1.15; PROTHROMBIN TIME 14.4 SECONDS (12.5-14.5)
[2023-02-17 16:59] LABS: PARTIAL THROMBOPLASTIN TIME 33.2 SECONDS (24.8-34.2)
[2023-03-31 15:23] LABS: BASO % 0.2 % (0.0-1.0); EOS % 0.1 % (0.0-3.0); HEMATOCRIT 32.3 % (36.0-47.0); HEMOGLOBIN 9.8 g/dl (12.0-15.5); LYMPH % 5.9 % (24.0-44.0); MEAN CORPUSCULAR HEMOGLOBIN 24.9 pg (27.0-33.0); MEAN CORPUSCULAR HGB CONC 30.3 g/dl (32.0-36.5); NEUTROPHILS # 14.4 10^3/uL (1.5-8.5); NEUTROPHILS % 82.2 % (36.0-66.0); PLATELET COUNT, AUTOMATED 555 10^3/uL (150-450); RED BLOOD COUNT 3.94 10^6/uL (4.00-5.40); WHITE BLOOD COUNT 17.5 10^3/uL (4.0-10.0)
[2023-03-31 15:24] VITALS: BP 139/80; O2SAT 98
[2023-03-31 15:25] LABS: MONO # 1.9 10^3/uL (0.0-0.8)
[2023-03-31 15:53] LABS: ALBUMIN 2.7 G/DL (3.2-5.2); ALKALINE PHOSPHATASE 225 U/L (46-116); ALT/SGPT 68 U/L (7.0-40); AST/SGOT 43 U/L (<34); BILIRUBIN,TOTAL 0.5 MG/DL (0.3-1.2); BLOOD UREA NITROGEN 16 MG/DL (9-23); CALCIUM LEVEL 9.6 MG/DL (8.3-10.6); CARBON DIOXIDE LEVEL 25 MMOL/L (20-31); CHLORIDE LEVEL 96 MMOL/L (98-107); CREATININE FOR GFR 0.78 MG/DL (0.55-1.30); GLOMERULAR FILTRATION RATE > 60.0 (>32); GLUCOSE, FASTING 148 MG/DL (74-106); POTASSIUM SERUM 3.8 MMOL/L (3.5-5.1); SODIUM LEVEL 130 MMOL/L (136-145); TOTAL PROTEIN 7.3 G/DL (5.7-8.2)
[2023-03-31 16:24] LABS: FREE T4 0.85 NG/DL (0.89-1.76); THYROID STIMULATING HORMONE 2.472 uIU/ML (0.55-4.78)
[2023-04-01] MEDS: dexAMETHasone 4 MG TAB PO SCH (10:40)
[2023-04-01] MEDS: PROCHLORPERAZINE 5MG TAB PO SCH (10:40)
[2023-04-01] MEDS: PEMBROLIZUMAB 200 MG in NS 100 ML IV SCH (11:13)
[2023-04-01 11:16] VITALS: BP 114/71; O2SAT 96
[2023-04-01] MEDS: NS IV SCH (11:52)
[2023-04-01] MEDS: ENFORTUMAB VEDOTIN EJFV IV SCH (11:52)
[2023-04-07 15:03] VITALS: BP 125/74; O2SAT 92
[2023-04-07 15:12] LABS: BASO % 0.2 % (0.0-1.0); EOS # 0.2 10^3/uL (0.0-0.5); EOS % 1.5 % (0.0-3.0); HEMATOCRIT 33.3 % (36.0-47.0); HEMOGLOBIN 10.3 g/dl (12.0-15.5); LYMPH % 7.2 % (24.0-44.0); MEAN CORPUSCULAR HEMOGLOBIN 24.9 pg (27.0-33.0); MEAN CORPUSCULAR HGB CONC 30.9 g/dl (32.0-36.5); MEAN CORPUSCULAR VOLUME 80.6 fl (80.0-96.0); MONO % 7.4 % (2.0-8.0); NEUTROPHILS # 11.6 10^3/uL (1.5-8.5); PLATELET COUNT, AUTOMATED 400 10^3/uL (150-450); RED BLOOD COUNT 4.13 10^6/uL (4.00-5.40)
[2023-04-07 15:44] LABS: FREE T3 1.9 PG/ML (2.3-4.2); FREE T4 0.87 NG/DL (0.89-1.76); THYROID STIMULATING HORMONE 2.508 uIU/ML (0.55-4.78)
[2023-04-07 15:45] LABS: ALBUMIN 2.5 G/DL (3.2-5.2); ALKALINE PHOSPHATASE 218 U/L (46-116); ALT/SGPT 74 U/L (7.0-40); AST/SGOT 53 U/L (<34); BILIRUBIN,TOTAL 0.5 MG/DL (0.3-1.2); BLOOD UREA NITROGEN 17 MG/DL (9-23); CALCIUM LEVEL 8.9 MG/DL (8.3-10.6); CARBON DIOXIDE LEVEL 25 MMOL/L (20-31); CHLORIDE LEVEL 94 MMOL/L (98-107); CREATININE FOR GFR 0.71 MG/DL (0.55-1.30); GLOMERULAR FILTRATION RATE > 60.0 (>32); GLUCOSE, FASTING 160 MG/DL (74-106); POTASSIUM SERUM 3.6 MMOL/L (3.5-5.1); SODIUM LEVEL 130 MMOL/L (136-145)
[2023-04-08 10:45] VITALS: BP 120/69; O2SAT 96
[2023-04-08] MEDS: PROCHLORPERAZINE 5MG TAB PO SCH (10:58)
[2023-04-08] MEDS: dexAMETHasone 4 MG TAB PO SCH (10:58)
[2023-04-08] MEDS: ENFORTUMAB VEDOTIN EJFV IV SCH (11:53)
[2023-04-08] MEDS: NS IV SCH (11:53)
[2023-04-30 11:59] VITALS: BP 132/91; O2SAT 98
[2023-04-30 12:25] LABS: BASO % 0.3 % (0.0-1.0); HEMATOCRIT 40.7 % (36.0-47.0); HEMOGLOBIN 12.5 g/dl (12.0-15.5); LYMPH # 1.2 10^3/uL (1.5-5.0); LYMPH % 10.9 % (24.0-44.0); MEAN CORPUSCULAR HGB CONC 30.7 g/dl (32.0-36.5); MEAN CORPUSCULAR VOLUME 84.6 fl (80.0-96.0); MONO # 1.3 10^3/uL (0.0-0.8); MONO % 12.3 % (2.0-8.0); NEUTROPHILS # 7.9 10^3/uL (1.5-8.5); NEUTROPHILS % 74.1 % (36.0-66.0); PLATELET COUNT, AUTOMATED 289 10^3/uL (150-450); RED BLOOD COUNT 4.81 10^6/uL (4.00-5.40); WHITE BLOOD COUNT 10.7 10^3/uL (4.0-10.0)
[2023-04-30 12:42] LABS: ALBUMIN 2.9 G/DL (3.2-5.2); ALKALINE PHOSPHATASE 149 U/L (46-116); ALT/SGPT 23 U/L (7.0-40); AST/SGOT 32 U/L (<34); BILIRUBIN,TOTAL 0.6 MG/DL (0.3-1.2); BLOOD UREA NITROGEN 13 MG/DL (9-23); CALCIUM LEVEL 8.8 MG/DL (8.3-10.6); CARBON DIOXIDE LEVEL 26 MMOL/L (20-31); CHLORIDE LEVEL 96 MMOL/L (98-107); CREATININE FOR GFR 0.87 MG/DL (0.55-1.30); GLOMERULAR FILTRATION RATE > 60.0 (>32); GLUCOSE, FASTING 117 MG/DL (74-106); MAGNESIUM LEVEL 1.9 MG/DL (1.8-2.4); POTASSIUM SERUM 3.6 MMOL/L (3.5-5.1); SODIUM LEVEL 131 MMOL/L (136-145)
[2023-04-30] MEDS: dexAMETHasone 4 MG TAB PO SCH (13:16)
[2023-04-30] MEDS: PROCHLORPERAZINE 5MG TAB PO SCH (13:16)
[2023-04-30] MEDS: PEMBROLIZUMAB 200 MG in NS 100 ML IV SCH (13:49)
[2023-04-30] MEDS: NS IV SCH (14:41)
[2023-04-30] MEDS: ENFORTUMAB VEDOTIN EJFV IV SCH (14:41)
[2023-05-07 10:44] VITALS: BP 137/83; O2SAT 96
[2023-05-07 10:53] LABS: BASO % 0.3 % (0.0-1.0); EOS % 0.2 % (0.0-3.0); HEMATOCRIT 40.6 % (36.0-47.0); HEMOGLOBIN 12.6 g/dl (12.0-15.5); LYMPH # 1.1 10^3/uL (1.5-5.0); LYMPH % 10.7 % (24.0-44.0); MEAN CORPUSCULAR HEMOGLOBIN 26.8 pg (27.0-33.0); MEAN CORPUSCULAR VOLUME 86.2 fl (80.0-96.0); MONO # 1.2 10^3/uL (0.0-0.8); MONO % 11.3 % (2.0-8.0); NEUTROPHILS # 8.2 10^3/uL (1.5-8.5); NEUTROPHILS % 76.8 % (36.0-66.0); PLATELET COUNT, AUTOMATED 206 10^3/uL (150-450); RED BLOOD COUNT 4.71 10^6/uL (4.00-5.40); WHITE BLOOD COUNT 10.7 10^3/uL (4.0-10.0)
[2023-05-07 11:28] LABS: ALBUMIN 2.7 G/DL (3.2-5.2); ALKALINE PHOSPHATASE 118 U/L (46-116); ALT/SGPT 16 U/L (7.0-40); AST/SGOT 26 U/L (<34); BILIRUBIN,TOTAL 0.8 MG/DL (0.3-1.2); BLOOD UREA NITROGEN 12 MG/DL (9-23); CALCIUM LEVEL 8.5 MG/DL (8.3-10.6); CARBON DIOXIDE LEVEL 26 MMOL/L (20-31); CHLORIDE LEVEL 106 MMOL/L (98-107); GLOMERULAR FILTRATION RATE > 60.0 (>32); GLUCOSE, FASTING 122 MG/DL (74-106); POTASSIUM SERUM 3.4 MMOL/L (3.5-5.1); SODIUM LEVEL 139 MMOL/L (136-145); TOTAL PROTEIN 5.4 G/DL (5.7-8.2)
[2023-05-07] MEDS: PROCHLORPERAZINE 5MG TAB PO SCH (11:51)
[2023-05-07] MEDS: dexAMETHasone 4 MG TAB PO SCH (11:52)
[2023-05-07] MEDS: ENFORTUMAB VEDOTIN EJFV IV SCH (12:50)
[2023-05-07] MEDS: NS IV SCH (12:50)
[2023-05-07] MEDS: SODIUM CHLORIDE 0.9% INJ 10 ML SYR IV PRN (13:35)
[2023-05-19 13:04] VITALS: BP 125/82; O2SAT 96
[2023-05-19 13:12] LABS: BASO # 0.1 10^3/uL (0.0-0.2); BASO % 0.7 % (0.0-1.0); EOS # 0.1 10^3/uL (0.0-0.5); EOS % 0.7 % (0.0-3.0); HEMATOCRIT 39.9 % (36.0-47.0); HEMOGLOBIN 12.6 g/dl (12.0-15.5); LYMPH # 1.4 10^3/uL (1.5-5.0); LYMPH % 16.2 % (24.0-44.0); MEAN CORPUSCULAR HEMOGLOBIN 27.2 pg (27.0-33.0); MEAN CORPUSCULAR HGB CONC 31.6 g/dl (32.0-36.5); MEAN CORPUSCULAR VOLUME 86.2 fl (80.0-96.0); MONO # 0.9 10^3/uL (0.0-0.8); MONO % 10.4 % (2.0-8.0); NEUTROPHILS # 6.3 10^3/uL (1.5-8.5); NEUTROPHILS % 71.3 % (36.0-66.0); PLATELET COUNT, AUTOMATED 272 10^3/uL (150-450); RED BLOOD COUNT 4.63 10^6/uL (4.00-5.40); WHITE BLOOD COUNT 8.9 10^3/uL (4.0-10.0)
[2023-05-19 13:38] LABS: MAGNESIUM LEVEL 1.4 MG/DL (1.8-2.4)
[2023-05-19 13:41] LABS: THYROID STIMULATING HORMONE 2.987 uIU/ML (0.55-4.78)
[2023-05-19 13:42] LABS: ALBUMIN 2.8 G/DL (3.2-5.2); ALKALINE PHOSPHATASE 84 U/L (46-116); ALT/SGPT 14 U/L (7.0-40); AST/SGOT 24 U/L (<34); BILIRUBIN,TOTAL 0.7 MG/DL (0.3-1.2); BLOOD UREA NITROGEN 8 MG/DL (9-23); CALCIUM LEVEL 8.6 MG/DL (8.3-10.6); CARBON DIOXIDE LEVEL 23 MMOL/L (20-31); CHLORIDE LEVEL 107 MMOL/L (98-107); CREATININE FOR GFR 0.69 MG/DL (0.55-1.30); FREE T4 0.91 NG/DL (0.89-1.76); GLOMERULAR FILTRATION RATE > 60.0 (>32); GLUCOSE, FASTING 114 MG/DL (74-106); POTASSIUM SERUM 2.8 MMOL/L (3.5-5.1); SODIUM LEVEL 138 MMOL/L (136-145); TOTAL PROTEIN 5.4 G/DL (5.7-8.2)
[2023-05-19 13:45] LABS: FREE T3 2.2 PG/ML (2.3-4.2)
[2023-05-20 11:45] VITALS: BP 124/80; O2SAT 96
[2023-05-20] MEDS: KCL 10MEQ/100ML SWI (KRUN) 100 ML IV SCH (11:52)
[2023-05-20] MEDS: MAG SULF 1GM/100ML (MAG RUN) 100 ML IV SCH (13:09)
[2023-05-20] MEDS: PROCHLORPERAZINE 5MG TAB PO SCH (14:25)
[2023-05-20] MEDS: dexAMETHasone 4 MG TAB PO SCH (14:25)
[2023-05-20] MEDS: PEMBROLIZUMAB 200 MG in NS 100 ML IV SCH (15:08)
[2023-05-20] MEDS: NS IV SCH (15:48)
[2023-05-20] MEDS: ENFORTUMAB VEDOTIN EJFV IV SCH (15:48)
[2023-05-20] MEDS: SODIUM CHLORIDE 0.9% INJ 10 ML SYR IV PRN (16:25)
[2023-05-26 11:24] VITALS: BP 126/82; O2SAT 98
[2023-05-26] MEDS: SODIUM CHLORIDE 0.9% INJ 10 ML SYR IV PRN (11:30)
[2023-05-26 11:38] LABS: BASO % 0.3 % (0.0-1.0); EOS % 0.4 % (0.0-3.0); HEMATOCRIT 38.3 % (36.0-47.0); HEMOGLOBIN 12.1 g/dl (12.0-15.5); LYMPH # 1.4 10^3/uL (1.5-5.0); LYMPH % 17.9 % (24.0-44.0); MEAN CORPUSCULAR HEMOGLOBIN 27.6 pg (27.0-33.0); MEAN CORPUSCULAR HGB CONC 31.6 g/dl (32.0-36.5); MEAN CORPUSCULAR VOLUME 87.2 fl (80.0-96.0); NEUTROPHILS # 5.5 10^3/uL (1.5-8.5); PLATELET COUNT, AUTOMATED 281 10^3/uL (150-450); RED BLOOD COUNT 4.39 10^6/uL (4.00-5.40); WHITE BLOOD COUNT 7.9 10^3/uL (4.0-10.0)
[2023-05-26 12:08] LABS: ALBUMIN 2.6 G/DL (3.2-5.2); ALKALINE PHOSPHATASE 96 U/L (46-116); ALT/SGPT 23 U/L (7.0-40); AST/SGOT 27 U/L (<34); BILIRUBIN,TOTAL 0.6 MG/DL (0.3-1.2); BLOOD UREA NITROGEN 7 MG/DL (9-23); CALCIUM LEVEL 8.5 MG/DL (8.3-10.6); CARBON DIOXIDE LEVEL 24 MMOL/L (20-31); CHLORIDE LEVEL 109 MMOL/L (98-107); CREATININE FOR GFR 0.69 MG/DL (0.55-1.30); GLOMERULAR FILTRATION RATE > 60.0 (>32); GLUCOSE, FASTING 129 MG/DL (74-106); POTASSIUM SERUM 3.3 MMOL/L (3.5-5.1); SODIUM LEVEL 140 MMOL/L (136-145); TOTAL PROTEIN 5.3 G/DL (5.7-8.2)
[2023-05-27] MEDS: MAG SULF 1GM/100ML (MAG RUN) 100 ML IV SCH (11:58)
[2023-05-27] MEDS: PROCHLORPERAZINE 5MG TAB PO SCH (11:58)
[2023-05-27] MEDS: dexAMETHasone 4 MG TAB PO SCH (11:59)
[2023-05-27 12:02] VITALS: BP 116/74; O2SAT 98
[2023-05-27] MEDS: NS IV SCH (15:17)
[2023-05-27] MEDS: ENFORTUMAB VEDOTIN EJFV IV SCH (15:17)
[2023-06-09 13:22] VITALS: BP 133/80; O2SAT 96
[2023-06-09 13:36] LABS: BASO % 0.3 % (0.0-1.0); EOS % 0.4 % (0.0-3.0); HEMOGLOBIN 11.6 g/dl (12.0-15.5); LYMPH # 1.5 10^3/uL (1.5-5.0); LYMPH % 14.3 % (24.0-44.0); MEAN CORPUSCULAR HEMOGLOBIN 28.5 pg (27.0-33.0); MEAN CORPUSCULAR HGB CONC 31.4 g/dl (32.0-36.5); MEAN CORPUSCULAR VOLUME 90.9 fl (80.0-96.0); MONO % 9.4 % (2.0-8.0); NEUTROPHILS # 7.7 10^3/uL (1.5-8.5); NEUTROPHILS % 75.1 % (36.0-66.0); PLATELET COUNT, AUTOMATED 354 10^3/uL (150-450); RED BLOOD COUNT 4.07 10^6/uL (4.00-5.40); WHITE BLOOD COUNT 10.2 10^3/uL (4.0-10.0)
[2023-06-09 13:59] LABS: ALBUMIN 2.5 G/DL (3.2-5.2); ALKALINE PHOSPHATASE 134 U/L (46-116); ALT/SGPT 18 U/L (7.0-40); AST/SGOT 21 U/L (<34); BILIRUBIN,TOTAL 0.3 MG/DL (0.3-1.2); BLOOD UREA NITROGEN 7 MG/DL (9-23); CALCIUM LEVEL 8.3 MG/DL (8.3-10.6); CARBON DIOXIDE LEVEL 24 MMOL/L (20-31); CHLORIDE LEVEL 109 MMOL/L (98-107); CREATININE FOR GFR 0.62 MG/DL (0.55-1.30); GLOMERULAR FILTRATION RATE > 60.0 (>32); GLUCOSE, FASTING 128 MG/DL (74-106); POTASSIUM SERUM 3.4 MMOL/L (3.5-5.1); SODIUM LEVEL 140 MMOL/L (136-145); TOTAL PROTEIN 5.4 G/DL (5.7-8.2)
[2023-06-09 14:05] LABS: FREE T3 2.6 PG/ML (2.3-4.2)
[2023-06-09 14:06] LABS: FREE T4 0.85 NG/DL (0.89-1.76); THYROID STIMULATING HORMONE 2.105 uIU/ML (0.55-4.78)
[2023-06-10] MEDS: MAG SULF 1GM/100ML (MAG RUN) 100 ML IV SCH (11:42)
[2023-06-10 11:44] VITALS: BP 145/89; O2SAT 98
[2023-06-10] MEDS: PROCHLORPERAZINE 5MG TAB PO SCH (12:30)
[2023-06-10] MEDS: dexAMETHasone 4 MG TAB PO SCH (12:30)
[2023-06-10] MEDS: PEMBROLIZUMAB 200 MG in NS 100 ML IV SCH (13:38)
[2023-06-10] MEDS: ENFORTUMAB VEDOTIN EJFV IV SCH (14:18)
[2023-06-10] MEDS: NS IV SCH (14:18)
[2023-06-17 11:45] VITALS: BP 129/71; O2SAT 98
[2023-06-17 12:18] LABS: BASO % 0.3 % (0.0-1.0); EOS # 0.1 10^3/uL (0.0-0.5); EOS % 0.8 % (0.0-3.0); HEMATOCRIT 36.6 % (36.0-47.0); HEMOGLOBIN 11.4 g/dl (12.0-15.5); LYMPH # 1.4 10^3/uL (1.5-5.0); LYMPH % 13.2 % (24.0-44.0); MEAN CORPUSCULAR HEMOGLOBIN 29.2 pg (27.0-33.0); MEAN CORPUSCULAR HGB CONC 31.1 g/dl (32.0-36.5); MEAN CORPUSCULAR VOLUME 93.6 fl (80.0-96.0); MONO # 1.2 10^3/uL (0.0-0.8); MONO % 11.5 % (2.0-8.0); NEUTROPHILS # 7.5 10^3/uL (1.5-8.5); NEUTROPHILS % 73.5 % (36.0-66.0); PLATELET COUNT, AUTOMATED 407 10^3/uL (150-450); RED BLOOD COUNT 3.91 10^6/uL (4.00-5.40); WHITE BLOOD COUNT 10.2 10^3/uL (4.0-10.0)
[2023-06-17 12:51] LABS: ALBUMIN 2.8 G/DL (3.2-5.2); ALKALINE PHOSPHATASE 118 U/L (46-116); ALT/SGPT 25 U/L (7.0-40); AST/SGOT 27 U/L (<34); BILIRUBIN,TOTAL 0.4 MG/DL (0.3-1.2); BLOOD UREA NITROGEN 11 MG/DL (9-23); CALCIUM LEVEL 8.6 MG/DL (8.3-10.6); CARBON DIOXIDE LEVEL 24 MMOL/L (20-31); CHLORIDE LEVEL 104 MMOL/L (98-107); CREATININE FOR GFR 0.75 MG/DL (0.55-1.30); GLOMERULAR FILTRATION RATE > 60.0 (>32); GLUCOSE, FASTING 137 MG/DL (74-106); POTASSIUM SERUM 3.7 MMOL/L (3.5-5.1); SODIUM LEVEL 136 MMOL/L (136-145); TOTAL PROTEIN 5.9 G/DL (5.7-8.2)
[2023-06-17] MEDS: dexAMETHasone 4 MG TAB PO SCH (13:13)
[2023-06-17] MEDS: PROCHLORPERAZINE 5MG TAB PO SCH (13:13)
[2023-06-17] MEDS: MAG SULF 1GM/100ML (MAG RUN) 100 ML IV ONE (13:14)
[2023-06-17] MEDS: ENFORTUMAB VEDOTIN EJFV IV SCH (14:56)
[2023-06-17] MEDS: NS IV SCH (14:56)
[2023-06-30 10:55] VITALS: BP 141/83; O2SAT 100
[2023-06-30] MEDS: SODIUM CHLORIDE 0.9% INJ 10 ML SYR IV PRN (12:06)
[2023-06-30 12:20] LABS: BASO % 0.3 % (0.0-1.0); EOS # 0.1 10^3/uL (0.0-0.5); EOS % 0.9 % (0.0-3.0); HEMATOCRIT 37.1 % (36.0-47.0); HEMOGLOBIN 11.7 g/dl (12.0-15.5); LYMPH # 1.4 10^3/uL (1.5-5.0); LYMPH % 15.2 % (24.0-44.0); MEAN CORPUSCULAR HGB CONC 31.5 g/dl (32.0-36.5); MEAN CORPUSCULAR VOLUME 95.1 fl (80.0-96.0); MONO # 1.1 10^3/uL (0.0-0.8); MONO % 11.7 % (2.0-8.0); NEUTROPHILS # 6.4 10^3/uL (1.5-8.5); NEUTROPHILS % 71.3 % (36.0-66.0); PLATELET COUNT, AUTOMATED 346 10^3/uL (150-450); WHITE BLOOD COUNT 8.9 10^3/uL (4.0-10.0)
[2023-06-30 12:52] LABS: ALBUMIN 2.9 G/DL (3.2-5.2); ALKALINE PHOSPHATASE 108 U/L (46-116); ALT/SGPT 16 U/L (7.0-40); AST/SGOT 22 U/L (<34); BILIRUBIN,TOTAL 0.3 MG/DL (0.3-1.2); BLOOD UREA NITROGEN 11 MG/DL (9-23); CALCIUM LEVEL 8.9 MG/DL (8.3-10.6); CARBON DIOXIDE LEVEL 26 MMOL/L (20-31); CHLORIDE LEVEL 107 MMOL/L (98-107); CREATININE FOR GFR 0.76 MG/DL (0.55-1.30); GLOMERULAR FILTRATION RATE > 60.0 (>32); GLUCOSE, FASTING 110 MG/DL (74-106); MAGNESIUM LEVEL 1.6 MG/DL (1.8-2.4); POTASSIUM SERUM 3.7 MMOL/L (3.5-5.1); SODIUM LEVEL 140 MMOL/L (136-145); TOTAL PROTEIN 6.3 G/DL (5.7-8.2)
[2023-06-30 12:55] LABS: FREE T4 0.81 NG/DL (0.89-1.76); THYROID STIMULATING HORMONE 4.581 uIU/ML (0.55-4.78)
[2023-06-30 12:58] LABS: FREE T3 3.2 PG/ML (2.3-4.2)
[2023-07-01] MEDS: MAG SULF 1GM/100ML (MAG RUN) 100 ML IV SCH (11:26)
[2023-07-01 11:35] VITALS: BP 123/75; O2SAT 97
[2023-07-01] MEDS: dexAMETHasone 4 MG TAB PO SCH (12:41)
[2023-07-01] MEDS: PROCHLORPERAZINE 5MG TAB PO SCH (12:41)
[2023-07-01] MEDS: PEMBROLIZUMAB 200 MG in NS 100 ML IV SCH (13:25)
[2023-07-01] MEDS: ENFORTUMAB VEDOTIN EJFV IV SCH (14:06)
[2023-07-01] MEDS: NS IV SCH (14:06)
[2023-07-08 10:50] VITALS: BP 142/82; O2SAT 98
[2023-07-08 11:21] LABS: BASO % 0.2 % (0.0-1.0); EOS # 0.1 10^3/uL (0.0-0.5); EOS % 0.8 % (0.0-3.0); HEMOGLOBIN 12.4 g/dl (12.0-15.5); LYMPH # 1.5 10^3/uL (1.5-5.0); LYMPH % 16.8 % (24.0-44.0); MEAN CORPUSCULAR HEMOGLOBIN 29.9 pg (27.0-33.0); MEAN CORPUSCULAR VOLUME 96.4 fl (80.0-96.0); MONO % 11.3 % (2.0-8.0); NEUTROPHILS # 6.4 10^3/uL (1.5-8.5); NEUTROPHILS % 70.5 % (36.0-66.0); PLATELET COUNT, AUTOMATED 354 10^3/uL (150-450); RED BLOOD COUNT 4.15 10^6/uL (4.00-5.40)
[2023-07-08 11:51] LABS: ALBUMIN 3.3 G/DL (3.2-5.2); ALKALINE PHOSPHATASE 96 U/L (46-116); ALT/SGPT 17 U/L (7.0-40); AST/SGOT 18 U/L (<34); BILIRUBIN,TOTAL 0.4 MG/DL (0.3-1.2); BLOOD UREA NITROGEN 12 MG/DL (9-23); CARBON DIOXIDE LEVEL 28 MMOL/L (20-31); CHLORIDE LEVEL 104 MMOL/L (98-107); GLOMERULAR FILTRATION RATE > 60.0 (>32); GLUCOSE, FASTING 118 MG/DL (74-106); POTASSIUM SERUM 3.7 MMOL/L (3.5-5.1); SODIUM LEVEL 138 MMOL/L (136-145); TOTAL PROTEIN 6.4 G/DL (5.7-8.2)
[2023-07-08] MEDS: PROCHLORPERAZINE 5MG TAB PO SCH (11:59)
[2023-07-08] MEDS: dexAMETHasone 4 MG TAB PO SCH (12:00)
[2023-07-08] MEDS: ENFORTUMAB VEDOTIN EJFV IV SCH (12:33)
[2023-07-08] MEDS: NS IV SCH (12:33)
[2023-07-08] MEDS: SODIUM CHLORIDE 0.9% INJ 10 ML SYR IV PRN (13:09)
[2023-07-22 13:04] VITALS: BP 143/83; O2SAT 6
[2023-07-22 13:09] LABS: BASO % 0.3 % (0.0-1.0); EOS # 0.1 10^3/uL (0.0-0.5); EOS % 0.5 % (0.0-3.0); HEMATOCRIT 38.5 % (36.0-47.0); HEMOGLOBIN 12.2 g/dl (12.0-15.5); LYMPH # 1.4 10^3/uL (1.5-5.0); LYMPH % 12.2 % (24.0-44.0); MEAN CORPUSCULAR HEMOGLOBIN 30.9 pg (27.0-33.0); MEAN CORPUSCULAR HGB CONC 31.7 g/dl (32.0-36.5); MEAN CORPUSCULAR VOLUME 97.5 fl (80.0-96.0); MONO % 8.8 % (2.0-8.0); NEUTROPHILS # 8.9 10^3/uL (1.5-8.5); NEUTROPHILS % 77.8 % (36.0-66.0); PLATELET COUNT, AUTOMATED 326 10^3/uL (150-450); RED BLOOD COUNT 3.95 10^6/uL (4.00-5.40); WHITE BLOOD COUNT 11.5 10^3/uL (4.0-10.0)
[2023-07-22 13:35] LABS: MAGNESIUM LEVEL 1.8 MG/DL (1.8-2.4)
[2023-07-22 13:38] LABS: ALBUMIN 3.1 G/DL (3.2-5.2); ALKALINE PHOSPHATASE 107 U/L (46-116); ALT/SGPT 12 U/L (7.0-40); AST/SGOT 16 U/L (<34); BILIRUBIN,TOTAL 0.3 MG/DL (0.3-1.2); BLOOD UREA NITROGEN 12 MG/DL (9-23); CALCIUM LEVEL 8.9 MG/DL (8.3-10.6); CARBON DIOXIDE LEVEL 27 MMOL/L (20-31); CHLORIDE LEVEL 107 MMOL/L (98-107); GLOMERULAR FILTRATION RATE > 60.0 (>32); GLUCOSE, FASTING 118 MG/DL (74-106); POTASSIUM SERUM 3.8 MMOL/L (3.5-5.1); SODIUM LEVEL 140 MMOL/L (136-145); TOTAL PROTEIN 6.2 G/DL (5.7-8.2)
[2023-07-22 13:41] LABS: FREE T4 0.77 NG/DL (0.89-1.76); THYROID STIMULATING HORMONE 2.122 uIU/ML (0.55-4.78)
[2023-07-22] MEDS: PROCHLORPERAZINE 5MG TAB PO SCH (14:12)
[2023-07-22] MEDS: dexAMETHasone 4 MG TAB PO SCH (14:12)
[2023-07-22] MEDS: NS IV SCH (15:01)
[2023-07-22] MEDS: ENFORTUMAB VEDOTIN EJFV IV SCH (15:01)
[2023-07-22] MEDS: PEMBROLIZUMAB 200 MG in NS 100 ML IV SCH (15:39)
[2023-07-22] MEDS: SODIUM CHLORIDE 0.9% INJ 10 ML SYR IV PRN (16:24)
[2023-07-29 11:15] VITALS: BP 120/74; O2SAT 95
[2023-07-29 11:22] LABS: BASO % 0.2 % (0.0-1.0); EOS # 0.1 10^3/uL (0.0-0.5); EOS % 0.8 % (0.0-3.0); HEMATOCRIT 40.8 % (36.0-47.0); HEMOGLOBIN 12.9 g/dl (12.0-15.5); LYMPH # 1.4 10^3/uL (1.5-5.0); LYMPH % 14.5 % (24.0-44.0); MEAN CORPUSCULAR HEMOGLOBIN 30.1 pg (27.0-33.0); MEAN CORPUSCULAR HGB CONC 31.6 g/dl (32.0-36.5); MEAN CORPUSCULAR VOLUME 95.1 fl (80.0-96.0); MONO % 10.5 % (2.0-8.0); NEUTROPHILS # 6.9 10^3/uL (1.5-8.5); NEUTROPHILS % 73.7 % (36.0-66.0); PLATELET COUNT, AUTOMATED 367 10^3/uL (150-450); RED BLOOD COUNT 4.29 10^6/uL (4.00-5.40); WHITE BLOOD COUNT 9.3 10^3/uL (4.0-10.0)
[2023-07-29 11:52] LABS: ALBUMIN 3.1 G/DL (3.2-5.2); ALKALINE PHOSPHATASE 100 U/L (46-116); ALT/SGPT 15 U/L (7.0-40); AST/SGOT 22 U/L (<34); BILIRUBIN,TOTAL 0.3 MG/DL (0.3-1.2); BLOOD UREA NITROGEN 14 MG/DL (9-23); CARBON DIOXIDE LEVEL 26 MMOL/L (20-31); CHLORIDE LEVEL 105 MMOL/L (98-107); CREATININE FOR GFR 0.82 MG/DL (0.55-1.30); GLOMERULAR FILTRATION RATE > 60.0 (>32); GLUCOSE, FASTING 129 MG/DL (74-106); POTASSIUM SERUM 3.7 MMOL/L (3.5-5.1); SODIUM LEVEL 138 MMOL/L (136-145); TOTAL PROTEIN 6.3 G/DL (5.7-8.2)
[2023-07-29] MEDS: PROCHLORPERAZINE 5MG TAB PO SCH (12:06)
[2023-07-29] MEDS: dexAMETHasone 4 MG TAB PO SCH (12:07)
[2023-07-29] MEDS: NS IV SCH (12:31)
[2023-07-29] MEDS: ENFORTUMAB VEDOTIN EJFV IV SCH (12:31)
[2023-07-29] MEDS: SODIUM CHLORIDE 0.9% INJ 10 ML SYR IV PRN (13:05)
[2023-08-12 11:40] LABS: BASO % 0.2 % (0.0-1.0); EOS # 0.1 10^3/uL (0.0-0.5); EOS % 0.5 % (0.0-3.0); HEMATOCRIT 39.9 % (36.0-47.0); HEMOGLOBIN 12.5 g/dl (12.0-15.5); LYMPH # 1.2 10^3/uL (1.5-5.0); LYMPH % 9.5 % (24.0-44.0); MEAN CORPUSCULAR HGB CONC 31.3 g/dl (32.0-36.5); MEAN CORPUSCULAR VOLUME 95.9 fl (80.0-96.0); MONO # 1.1 10^3/uL (0.0-0.8); MONO % 8.9 % (2.0-8.0); NEUTROPHILS % 80.6 % (36.0-66.0); PLATELET COUNT, AUTOMATED 326 10^3/uL (150-450); RED BLOOD COUNT 4.16 10^6/uL (4.00-5.40); WHITE BLOOD COUNT 12.4 10^3/uL (4.0-10.0)
[2023-08-12 11:52] VITALS: BP 124/85; O2SAT 97
[2023-08-12 12:09] LABS: ALBUMIN 3.1 G/DL (3.2-5.2); ALKALINE PHOSPHATASE 112 U/L (46-116); ALT/SGPT 15 U/L (7.0-40); AST/SGOT 19 U/L (<34); BILIRUBIN,TOTAL 0.3 MG/DL (0.3-1.2); BLOOD UREA NITROGEN 17 MG/DL (9-23); CALCIUM LEVEL 9.3 MG/DL (8.3-10.6); CARBON DIOXIDE LEVEL 29 MMOL/L (20-31); CHLORIDE LEVEL 103 MMOL/L (98-107); CREATININE FOR GFR 0.84 MG/DL (0.55-1.30); GLOMERULAR FILTRATION RATE > 60.0 (>32); GLUCOSE, FASTING 119 MG/DL (74-106); MAGNESIUM LEVEL 2.1 MG/DL (1.8-2.4); POTASSIUM SERUM 4.4 MMOL/L (3.5-5.1); SODIUM LEVEL 138 MMOL/L (136-145); TOTAL PROTEIN 6.2 G/DL (5.7-8.2)
[2023-08-12 12:10] LABS: FREE T3 3.1 PG/ML (2.3-4.2)
[2023-08-12 12:11] LABS: FREE T4 0.84 NG/DL (0.89-1.76); THYROID STIMULATING HORMONE 2.651 uIU/ML (0.55-4.78)
[2023-08-12] MEDS: dexAMETHasone 4 MG TAB PO SCH (12:50)
[2023-08-12] MEDS: PROCHLORPERAZINE 5MG TAB PO SCH (12:51)
[2023-08-12] MEDS: NS IV SCH (13:54)
[2023-08-12] MEDS: ENFORTUMAB VEDOTIN EJFV IV SCH (13:54)
[2023-08-12] MEDS: PEMBROLIZUMAB 200 MG in NS 100 ML IV SCH (14:30)
[2023-08-12] MEDS: SODIUM CHLORIDE 0.9% INJ 10 ML SYR IV PRN (15:26)
[2023-08-19 10:50] VITALS: BP 129/79; O2SAT 99
[2023-08-19 11:21] LABS: BASO % 0.2 % (0.0-1.0); EOS # 0.1 10^3/uL (0.0-0.5); HEMATOCRIT 42.1 % (36.0-47.0); HEMOGLOBIN 13.4 g/dl (12.0-15.5); LYMPH # 1.4 10^3/uL (1.5-5.0); MEAN CORPUSCULAR HEMOGLOBIN 29.8 pg (27.0-33.0); MEAN CORPUSCULAR HGB CONC 31.8 g/dl (32.0-36.5); MEAN CORPUSCULAR VOLUME 93.8 fl (80.0-96.0); MONO # 1.3 10^3/uL (0.0-0.8); MONO % 12.1 % (2.0-8.0); NEUTROPHILS % 73.2 % (36.0-66.0); PLATELET COUNT, AUTOMATED 347 10^3/uL (150-450); RED BLOOD COUNT 4.49 10^6/uL (4.00-5.40); WHITE BLOOD COUNT 10.9 10^3/uL (4.0-10.0)
[2023-08-19 11:45] LABS: ALBUMIN 3.2 G/DL (3.2-5.2); BILIRUBIN,TOTAL 0.4 MG/DL (0.3-1.2); CALCIUM LEVEL 9.6 MG/DL (8.3-10.6); CREATININE FOR GFR 1.01 MG/DL (0.55-1.30); GLOMERULAR FILTRATION RATE 56.1 (>32); POTASSIUM SERUM 3.9 MMOL/L (3.5-5.1); TOTAL PROTEIN 6.5 G/DL (5.7-8.2)
[2023-08-19] MEDS: PROCHLORPERAZINE 5MG TAB PO SCH (11:55)
[2023-08-19] MEDS: dexAMETHasone 4 MG TAB PO SCH (11:55)
[2023-08-19] MEDS: NS IV SCH (12:14)
[2023-08-19] MEDS: ENFORTUMAB VEDOTIN EJFV IV SCH (12:14)
[2023-08-19] MEDS: SODIUM CHLORIDE 0.9% INJ 10 ML SYR IV PRN (13:00)
[2023-09-02 11:14] LABS: BASO % 0.2 % (0.0-1.0); EOS % 0.2 % (0.0-3.0); HEMATOCRIT 41.4 % (36.0-47.0); HEMOGLOBIN 13.4 g/dl (12.0-15.5); LYMPH # 1.3 10^3/uL (1.5-5.0); LYMPH % 12.4 % (24.0-44.0); MEAN CORPUSCULAR HEMOGLOBIN 30.1 pg (27.0-33.0); MEAN CORPUSCULAR HGB CONC 32.4 g/dl (32.0-36.5); MONO # 1.1 10^3/uL (0.0-0.8); MONO % 10.3 % (2.0-8.0); NEUTROPHILS # 7.8 10^3/uL (1.5-8.5); NEUTROPHILS % 76.5 % (36.0-66.0); PLATELET COUNT, AUTOMATED 341 10^3/uL (150-450); RED BLOOD COUNT 4.45 10^6/uL (4.00-5.40); WHITE BLOOD COUNT 10.2 10^3/uL (4.0-10.0)
[2023-09-02 11:19] VITALS: BP 129/92; O2SAT 96
[2023-09-02 11:38] LABS: ALBUMIN 3.1 G/DL (3.2-5.2); ALKALINE PHOSPHATASE 108 U/L (46-116); ALT/SGPT 12 U/L (7.0-40); AST/SGOT 15 U/L (<34); BILIRUBIN,TOTAL 0.4 MG/DL (0.3-1.2); BLOOD UREA NITROGEN 14 MG/DL (9-23); CALCIUM LEVEL 9.2 MG/DL (8.3-10.6); CARBON DIOXIDE LEVEL 25 MMOL/L (20-31); CHLORIDE LEVEL 106 MMOL/L (98-107); CREATININE FOR GFR 0.87 MG/DL (0.55-1.30); GLOMERULAR FILTRATION RATE > 60.0 (>32); GLUCOSE, FASTING 106 MG/DL (74-106); MAGNESIUM LEVEL 1.6 MG/DL (1.8-2.4); POTASSIUM SERUM 3.4 MMOL/L (3.5-5.1); SODIUM LEVEL 140 MMOL/L (136-145); TOTAL PROTEIN 6.1 G/DL (5.7-8.2)
[2023-09-02 12:13] LABS: FREE T4 0.82 NG/DL (0.89-1.76); THYROID STIMULATING HORMONE 1.525 uIU/ML (0.55-4.78)
[2023-09-02 12:29] LABS: FREE T3 2.7 PG/ML (2.3-4.2)
[2023-09-02] MEDS: NS (Normal Saline) 0.9% 1,000 ML IV ONE (12:29)
[2023-09-02] MEDS: NS IV ONE (12:37)
[2023-09-02] MEDS: ONDANSETRON IV ONE (12:37)
[2023-09-02] MEDS: MAG SULF 1GM/100ML (MAG RUN) 100 ML IV SCH (12:57)
[2023-09-02] MEDS: KCL 10MEQ/100ML SWI (KRUN) 100 ML IV ONE (13:56)
[2023-09-02] MEDS: SODIUM CHLORIDE 0.9% INJ 10 ML SYR IV PRN (14:54)
[2023-09-18 10:44] VITALS: BP 122/86; O2SAT 96
[2023-09-18 11:01] LABS: BASO % 0.3 % (0.0-1.0); EOS % 0.1 % (0.0-3.0); HEMATOCRIT 46.5 % (36.0-47.0); HEMOGLOBIN 14.7 g/dl (12.0-15.5); LYMPH # 1.5 10^3/uL (1.5-5.0); LYMPH % 14.1 % (24.0-44.0); MEAN CORPUSCULAR HEMOGLOBIN 28.6 pg (27.0-33.0); MEAN CORPUSCULAR HGB CONC 31.6 g/dl (32.0-36.5); MEAN CORPUSCULAR VOLUME 90.5 fl (80.0-96.0); MONO # 1.6 10^3/uL (0.0-0.8); MONO % 15.4 % (2.0-8.0); NEUTROPHILS # 7.3 10^3/uL (1.5-8.5); NEUTROPHILS % 69.7 % (36.0-66.0); PLATELET COUNT, AUTOMATED 329 10^3/uL (150-450); RED BLOOD COUNT 5.14 10^6/uL (4.00-5.40); WHITE BLOOD COUNT 10.5 10^3/uL (4.0-10.0)
[2023-09-18 11:24] LABS: ALBUMIN 1.7 G/DL (3.2-5.2); BILIRUBIN,TOTAL 0.4 MG/DL (0.3-1.2); CALCIUM LEVEL 8.5 MG/DL (8.3-10.6); GLOMERULAR FILTRATION RATE 56.8 (>32); POTASSIUM SERUM 3.6 MMOL/L (3.5-5.1); TOTAL PROTEIN 5.6 G/DL (5.7-8.2)
[2023-09-18] MEDS: dexAMETHasone 4 MG TAB PO SCH (11:39)
[2023-09-18] MEDS: PROCHLORPERAZINE 5MG TAB PO SCH (11:39)
[2023-09-18 11:49] LABS: FREE T3 2.6 PG/ML (2.3-4.2); FREE T4 0.93 NG/DL (0.89-1.76); MAGNESIUM LEVEL 1.7 MG/DL (1.8-2.4); THYROID STIMULATING HORMONE 1.685 uIU/ML (0.55-4.78)
[2023-09-18] MEDS: MAG SULF 1GM/100ML (MAG RUN) 100 ML IV ONE (12:34)
[2023-09-18] MEDS: ENFORTUMAB VEDOTIN EJFV IV SCH (13:38)
[2023-09-18] MEDS: NS IV SCH (13:38)
[2023-09-18] MEDS: PEMBROLIZUMAB 200 MG in NS 100 ML IV SCH (14:15)
[2023-09-18] MEDS: SODIUM CHLORIDE 0.9% INJ 10 ML SYR IV PRN (14:53)
[2023-09-25 11:00] VITALS: BP 117/71; O2SAT 97
[2023-09-25 11:21] LABS: BASO % 0.2 % (0.0-1.0); EOS % 0.1 % (0.0-3.0); HEMOGLOBIN 13.9 g/dl (12.0-15.5); LYMPH # 1.9 10^3/uL (1.5-5.0); LYMPH % 16.6 % (24.0-44.0); MEAN CORPUSCULAR HEMOGLOBIN 28.5 pg (27.0-33.0); MEAN CORPUSCULAR HGB CONC 31.6 g/dl (32.0-36.5); MEAN CORPUSCULAR VOLUME 90.2 fl (80.0-96.0); MONO # 1.3 10^3/uL (0.0-0.8); MONO % 11.8 % (2.0-8.0); NEUTROPHILS # 8.1 10^3/uL (1.5-8.5); NEUTROPHILS % 70.9 % (36.0-66.0); PLATELET COUNT, AUTOMATED 298 10^3/uL (150-450); RED BLOOD COUNT 4.88 10^6/uL (4.00-5.40); WHITE BLOOD COUNT 11.4 10^3/uL (4.0-10.0)
[2023-09-25 11:50] LABS: ALBUMIN 2.8 G/DL (3.2-5.2); ALKALINE PHOSPHATASE 120 U/L (46-116); ALT/SGPT 38 U/L (7.0-40); AST/SGOT 25 U/L (<34); BILIRUBIN,TOTAL 0.4 MG/DL (0.3-1.2); BLOOD UREA NITROGEN 18 MG/DL (9-23); CALCIUM LEVEL 8.6 MG/DL (8.3-10.6); CARBON DIOXIDE LEVEL 28 MMOL/L (20-31); CHLORIDE LEVEL 103 MMOL/L (98-107); CREATININE FOR GFR 0.91 MG/DL (0.55-1.30); GLOMERULAR FILTRATION RATE > 60.0 (>32); GLUCOSE, FASTING 118 MG/DL (74-106); POTASSIUM SERUM 3.6 MMOL/L (3.5-5.1); SODIUM LEVEL 137 MMOL/L (136-145); TOTAL PROTEIN 5.4 G/DL (5.7-8.2)
[2023-09-25] MEDS: PROCHLORPERAZINE 5MG TAB PO SCH (12:21)
[2023-09-25] MEDS: dexAMETHasone 4 MG TAB PO SCH (12:22)
[2023-09-25] MEDS: NS IV SCH (13:01)
[2023-09-25] MEDS: ENFORTUMAB VEDOTIN EJFV IV SCH (13:01)
[2023-09-25] MEDS: MAG SULF 1GM/100ML (MAG RUN) 100 ML IV ONE (13:51)
[2023-09-25] MEDS: SODIUM CHLORIDE 0.9% INJ 10 ML SYR IV PRN (14:54)
[2023-10-09 10:43] LABS: BASO % 0.4 % (0.0-1.0); EOS % 0.3 % (0.0-3.0); HEMATOCRIT 42.4 % (36.0-47.0); HEMOGLOBIN 13.7 g/dl (12.0-15.5); LYMPH # 1.4 10^3/uL (1.5-5.0); LYMPH % 19.1 % (24.0-44.0); MEAN CORPUSCULAR HEMOGLOBIN 28.7 pg (27.0-33.0); MEAN CORPUSCULAR HGB CONC 32.3 g/dl (32.0-36.5); MEAN CORPUSCULAR VOLUME 88.9 fl (80.0-96.0); MONO % 14.7 % (2.0-8.0); NEUTROPHILS # 4.6 10^3/uL (1.5-8.5); NEUTROPHILS % 65.2 % (36.0-66.0); PLATELET COUNT, AUTOMATED 370 10^3/uL (150-450); RED BLOOD COUNT 4.77 10^6/uL (4.00-5.40); WHITE BLOOD COUNT 7.1 10^3/uL (4.0-10.0)
[2023-10-09 10:45] VITALS: BP 134/87; O2SAT 99
[2023-10-09 11:12] LABS: ALBUMIN 2.4 G/DL (3.2-5.2); ALKALINE PHOSPHATASE 127 U/L (46-116); ALT/SGPT 18 U/L (7.0-40); AST/SGOT 16 U/L (<34); BILIRUBIN,TOTAL 0.3 MG/DL (0.3-1.2); BLOOD UREA NITROGEN 14 MG/DL (9-23); CALCIUM LEVEL 8.6 MG/DL (8.3-10.6); CARBON DIOXIDE LEVEL 29 MMOL/L (20-31); CHLORIDE LEVEL 104 MMOL/L (98-107); CREATININE FOR GFR 0.85 MG/DL (0.55-1.30); GLOMERULAR FILTRATION RATE > 60.0 (>32); GLUCOSE, FASTING 112 MG/DL (74-106); SODIUM LEVEL 138 MMOL/L (136-145); TOTAL PROTEIN 5.2 G/DL (5.7-8.2)
[2023-10-09 11:48] LABS: FREE T4 0.83 NG/DL (0.89-1.76); THYROID STIMULATING HORMONE 2.185 uIU/ML (0.55-4.78)
[2023-10-09] MEDS: PROCHLORPERAZINE 5MG TAB PO SCH (11:57)
[2023-10-09] MEDS: dexAMETHasone 4 MG TAB PO SCH (11:57)
[2023-10-09] MEDS: ENFORTUMAB VEDOTIN EJFV IV SCH (12:38)
[2023-10-09] MEDS: NS IV SCH (12:38)
[2023-10-09] MEDS: PEMBROLIZUMAB 200 MG in NS 100 ML IV SCH (13:42)
[2023-10-16 11:28] LABS: BASO % 0.3 % (0.0-1.0); EOS % 0.2 % (0.0-3.0); HEMATOCRIT 41.5 % (36.0-47.0); HEMOGLOBIN 13.3 g/dl (12.0-15.5); LYMPH # 1.4 10^3/uL (1.5-5.0); LYMPH % 16.6 % (24.0-44.0); MEAN CORPUSCULAR VOLUME 90.4 fl (80.0-96.0); MONO # 1.3 10^3/uL (0.0-0.8); MONO % 14.9 % (2.0-8.0); NEUTROPHILS # 5.8 10^3/uL (1.5-8.5); NEUTROPHILS % 67.5 % (36.0-66.0); PLATELET COUNT, AUTOMATED 328 10^3/uL (150-450); RED BLOOD COUNT 4.59 10^6/uL (4.00-5.40); WHITE BLOOD COUNT 8.7 10^3/uL (4.0-10.0)
[2023-10-16 11:33] VITALS: BP 121/72; O2SAT 99
[2023-10-16 11:57] LABS: ALBUMIN 2.4 G/DL (3.2-5.2); ALKALINE PHOSPHATASE 114 U/L (46-116); ALT/SGPT 25 U/L (7.0-40); AST/SGOT 18 U/L (<34); BILIRUBIN,TOTAL 0.3 MG/DL (0.3-1.2); BLOOD UREA NITROGEN 14 MG/DL (9-23); CALCIUM LEVEL 8.4 MG/DL (8.3-10.6); CARBON DIOXIDE LEVEL 27 MMOL/L (20-31); CHLORIDE LEVEL 108 MMOL/L (98-107); GLOMERULAR FILTRATION RATE > 60.0 (>32); GLUCOSE, FASTING 121 MG/DL (74-106); POTASSIUM SERUM 3.6 MMOL/L (3.5-5.1); SODIUM LEVEL 141 MMOL/L (136-145); TOTAL PROTEIN 4.9 G/DL (5.7-8.2)
[2023-10-16] MEDS: MAG SULF 1GM/100ML (MAG RUN) 100 ML IV SCH (12:27)
[2023-10-16] MEDS: PROCHLORPERAZINE 5MG TAB PO SCH (12:27)
[2023-10-16] MEDS: dexAMETHasone 4 MG TAB PO SCH (12:27)
[2023-10-16] MEDS: NS IV SCH (13:37)
[2023-10-16] MEDS: ENFORTUMAB VEDOTIN EJFV IV SCH (13:37)
[2023-10-29 11:09] VITALS: BP 130/86; O2SAT 91
[2023-10-29 11:41] LABS: BASO % 0.3 % (0.0-1.0); EOS % 0.1 % (0.0-3.0); HEMATOCRIT 43.3 % (36.0-47.0); HEMOGLOBIN 13.9 g/dl (12.0-15.5); LYMPH # 1.6 10^3/uL (1.5-5.0); LYMPH % 18.5 % (24.0-44.0); MEAN CORPUSCULAR HEMOGLOBIN 28.7 pg (27.0-33.0); MEAN CORPUSCULAR HGB CONC 32.1 g/dl (32.0-36.5); MEAN CORPUSCULAR VOLUME 89.3 fl (80.0-96.0); MONO # 1.6 10^3/uL (0.0-0.8); MONO % 17.5 % (2.0-8.0); NEUTROPHILS # 5.6 10^3/uL (1.5-8.5); NEUTROPHILS % 63.3 % (36.0-66.0); PLATELET COUNT, AUTOMATED 371 10^3/uL (150-450); RED BLOOD COUNT 4.85 10^6/uL (4.00-5.40); WHITE BLOOD COUNT 8.9 10^3/uL (4.0-10.0)
[2023-10-29 12:14] LABS: ALBUMIN 2.4 G/DL (3.2-5.2); ALKALINE PHOSPHATASE 117 U/L (46-116); ALT/SGPT 15 U/L (7.0-40); AST/SGOT 16 U/L (<34); BILIRUBIN,TOTAL 0.4 MG/DL (0.3-1.2); BLOOD UREA NITROGEN 13 MG/DL (9-23); CALCIUM LEVEL 8.1 MG/DL (8.3-10.6); CARBON DIOXIDE LEVEL 28 MMOL/L (20-31); CHLORIDE LEVEL 106 MMOL/L (98-107); GLOMERULAR FILTRATION RATE > 60.0 (>32); GLUCOSE, FASTING 122 MG/DL (74-106); POTASSIUM SERUM 3.6 MMOL/L (3.5-5.1); SODIUM LEVEL 139 MMOL/L (136-145); TOTAL PROTEIN 4.9 G/DL (5.7-8.2)
[2023-10-29] MEDS: PROCHLORPERAZINE 5MG TAB PO SCH (12:29)
[2023-10-29] MEDS: dexAMETHasone 4 MG TAB PO SCH (12:29)
[2023-10-29 13:03] LABS: FREE T4 0.91 NG/DL (0.89-1.76); MAGNESIUM LEVEL 1.6 MG/DL (1.8-2.4); THYROID STIMULATING HORMONE 2.804 uIU/ML (0.55-4.78)
[2023-10-29] MEDS: MAG SULF 1GM/100ML (MAG RUN) 100 ML IV ONE (13:22)
[2023-10-29 13:44] LABS: FREE T3 2.4 PG/ML (2.3-4.2)
[2023-10-29] MEDS: NS IV SCH (14:22)
[2023-10-29] MEDS: ENFORTUMAB VEDOTIN EJFV IV SCH (14:22)
[2023-10-29] MEDS: SODIUM CHLORIDE 0.9% INJ 10 ML SYR IV PRN (14:56)
[2023-10-29] MEDS: PEMBROLIZUMAB 200 MG in NS 100 ML IV SCH (14:57)
[2023-11-05 11:10] VITALS: BP 107/72; O2SAT 96
[2023-11-05 11:18] LABS: BASO % 0.4 % (0.0-1.0); EOS % 0.4 % (0.0-3.0); HEMATOCRIT 42.5 % (36.0-47.0); HEMOGLOBIN 13.6 g/dl (12.0-15.5); LYMPH # 1.8 10^3/uL (1.5-5.0); LYMPH % 18.2 % (24.0-44.0); MEAN CORPUSCULAR HEMOGLOBIN 28.6 pg (27.0-33.0); MEAN CORPUSCULAR VOLUME 89.3 fl (80.0-96.0); MONO # 1.5 10^3/uL (0.0-0.8); MONO % 14.9 % (2.0-8.0); NEUTROPHILS # 6.6 10^3/uL (1.5-8.5); NEUTROPHILS % 65.5 % (36.0-66.0); PLATELET COUNT, AUTOMATED 342 10^3/uL (150-450); RED BLOOD COUNT 4.76 10^6/uL (4.00-5.40); WHITE BLOOD COUNT 10.1 10^3/uL (4.0-10.0)
[2023-11-05 11:49] LABS: ALBUMIN 2.4 G/DL (3.2-5.2); ALKALINE PHOSPHATASE 112 U/L (46-116); ALT/SGPT 19 U/L (7.0-40); AST/SGOT 18 U/L (<34); BILIRUBIN,TOTAL 0.4 MG/DL (0.3-1.2); BLOOD UREA NITROGEN 15 MG/DL (9-23); CALCIUM LEVEL 8.2 MG/DL (8.3-10.6); CARBON DIOXIDE LEVEL 29 MMOL/L (20-31); CHLORIDE LEVEL 103 MMOL/L (98-107); CREATININE FOR GFR 0.91 MG/DL (0.55-1.30); GLOMERULAR FILTRATION RATE > 60.0 (>32); GLUCOSE, FASTING 116 MG/DL (74-106); MAGNESIUM LEVEL 2.3 MG/DL (1.8-2.4); POTASSIUM SERUM 3.9 MMOL/L (3.5-5.1); SODIUM LEVEL 135 MMOL/L (136-145); TOTAL PROTEIN 4.7 G/DL (5.7-8.2)
[2023-11-05] MEDS: PROCHLORPERAZINE 5MG TAB PO SCH (12:04)
[2023-11-05] MEDS: dexAMETHasone 4 MG TAB PO SCH (12:04)
[2023-11-05] MEDS: NS IV SCH (13:04)
[2023-11-05] MEDS: ENFORTUMAB VEDOTIN EJFV IV SCH (13:04)
[2023-11-05] MEDS: SODIUM CHLORIDE 0.9% INJ 10 ML SYR IV PRN (13:46)
[2023-11-17] MEDS: SODIUM CHLORIDE 0.9% INJ 10 ML SYR IV PRN (13:57)
[2023-11-17 14:18] LABS: BASO % 0.5 % (0.0-1.0); EOS # 0.1 10^3/uL (0.0-0.5); EOS % 1.1 % (0.0-3.0); HEMATOCRIT 40.8 % (36.0-47.0); HEMOGLOBIN 12.8 g/dl (12.0-15.5); LYMPH # 1.5 10^3/uL (1.5-5.0); LYMPH % 22.7 % (24.0-44.0); MEAN CORPUSCULAR HGB CONC 31.4 g/dl (32.0-36.5); MEAN CORPUSCULAR VOLUME 89.3 fl (80.0-96.0); MONO # 1.2 10^3/uL (0.0-0.8); NEUTROPHILS # 3.8 10^3/uL (1.5-8.5); NEUTROPHILS % 57.5 % (36.0-66.0); PLATELET COUNT, AUTOMATED 304 10^3/uL (150-450); RED BLOOD COUNT 4.57 10^6/uL (4.00-5.40); WHITE BLOOD COUNT 6.5 10^3/uL (4.0-10.0)
[2023-11-17 14:47] LABS: ALBUMIN 2.3 G/DL (3.2-5.2); ALKALINE PHOSPHATASE 115 U/L (46-116); ALT/SGPT 13 U/L (7.0-40); AST/SGOT 13 U/L (<34); BILIRUBIN,TOTAL 0.5 MG/DL (0.3-1.2); BLOOD UREA NITROGEN 14 MG/DL (9-23); CALCIUM LEVEL 8.2 MG/DL (8.3-10.6); CARBON DIOXIDE LEVEL 28 MMOL/L (20-31); CHLORIDE LEVEL 105 MMOL/L (98-107); CREATININE FOR GFR 0.83 MG/DL (0.55-1.30); GLOMERULAR FILTRATION RATE > 60.0 (>32); GLUCOSE, FASTING 93 MG/DL (74-106); POTASSIUM SERUM 3.4 MMOL/L (3.5-5.1); SODIUM LEVEL 138 MMOL/L (136-145); TOTAL PROTEIN 4.7 G/DL (5.7-8.2)
[2023-11-17 15:00] LABS: MAGNESIUM LEVEL 1.6 MG/DL (1.8-2.4)
[2023-11-17 15:04] LABS: FREE T3 2.5 PG/ML (2.3-4.2); FREE T4 0.96 NG/DL (0.89-1.76)
[2023-11-17 15:05] LABS: THYROID STIMULATING HORMONE 2.057 uIU/ML (0.55-4.78)
[2023-11-18 11:57] VITALS: BP 122/74; O2SAT 100
[2023-11-18] MEDS: PROCHLORPERAZINE 5MG TAB PO SCH (13:04)
[2023-11-18] MEDS: MAG SULF 1GM/100ML (MAG RUN) 100 ML IV SCH (13:04)
[2023-11-18] MEDS: KCL 10MEQ/100ML SWI (KRUN) 100 ML IV SCH (13:04)
[2023-11-18] MEDS: dexAMETHasone 4 MG TAB PO SCH (13:05)
[2023-11-18] MEDS: ENFORTUMAB VEDOTIN EJFV IV SCH (14:12)
[2023-11-18] MEDS: NS IV SCH (14:12)
[2023-11-18] MEDS: PEMBROLIZUMAB 200 MG in NS 100 ML IV SCH (15:13)
[2023-11-18] MEDS: SODIUM CHLORIDE 0.9% INJ 10 ML SYR IV PRN (15:46)
[2023-11-24] MEDS: SODIUM CHLORIDE 0.9% INJ 10 ML SYR IV PRN (13:58)
[2023-11-24 14:16] LABS: BASO % 0.4 % (0.0-1.0); EOS % 0.4 % (0.0-3.0); HEMATOCRIT 40.1 % (36.0-47.0); HEMOGLOBIN 12.9 g/dl (12.0-15.5); LYMPH # 1.6 10^3/uL (1.5-5.0); LYMPH % 21.2 % (24.0-44.0); MEAN CORPUSCULAR HEMOGLOBIN 28.7 pg (27.0-33.0); MEAN CORPUSCULAR HGB CONC 32.2 g/dl (32.0-36.5); MEAN CORPUSCULAR VOLUME 89.1 fl (80.0-96.0); MONO # 1.2 10^3/uL (0.0-0.8); MONO % 15.6 % (2.0-8.0); NEUTROPHILS # 4.6 10^3/uL (1.5-8.5); PLATELET COUNT, AUTOMATED 357 10^3/uL (150-450); WHITE BLOOD COUNT 7.4 10^3/uL (4.0-10.0)
[2023-11-24 14:42] LABS: ALBUMIN 2.4 G/DL (3.2-5.2); ALKALINE PHOSPHATASE 116 U/L (46-116); ALT/SGPT 13 U/L (7.0-40); AST/SGOT 12 U/L (<34); BILIRUBIN,TOTAL 0.5 MG/DL (0.3-1.2); BLOOD UREA NITROGEN 12 MG/DL (9-23); CALCIUM LEVEL 8.3 MG/DL (8.3-10.6); CARBON DIOXIDE LEVEL 28 MMOL/L (20-31); CHLORIDE LEVEL 107 MMOL/L (98-107); CREATININE FOR GFR 0.83 MG/DL (0.55-1.30); GLOMERULAR FILTRATION RATE > 60.0 (>32); GLUCOSE, FASTING 113 MG/DL (74-106); POTASSIUM SERUM 3.4 MMOL/L (3.5-5.1); SODIUM LEVEL 140 MMOL/L (136-145); TOTAL PROTEIN 4.9 G/DL (5.7-8.2)
[2023-11-25 11:30] VITALS: BP 121/74; O2SAT 100
[2023-11-25] MEDS: PROCHLORPERAZINE 5MG TAB PO SCH (11:44)
[2023-11-25] MEDS: dexAMETHasone 4 MG TAB PO SCH (11:44)
[2023-11-25] MEDS: KCL 10MEQ/100ML SWI (KRUN) 100 ML IV SCH (11:45)
[2023-11-25] MEDS: MAG SULF 1GM/100ML (MAG RUN) 100 ML IV SCH (11:45)
[2023-11-25] MEDS: NS IV SCH (13:18)
[2023-11-25] MEDS: ENFORTUMAB VEDOTIN EJFV IV SCH (13:18)
[2023-12-08] MEDS: SODIUM CHLORIDE 0.9% INJ 10 ML SYR IV PRN (13:55)
[2023-12-08 14:10] LABS: BASO % 0.2 % (0.0-1.0); EOS % 0.5 % (0.0-3.0); HEMATOCRIT 38.5 % (36.0-47.0); HEMOGLOBIN 12.6 g/dl (12.0-15.5); LYMPH # 1.8 10^3/uL (1.5-5.0); LYMPH % 20.8 % (24.0-44.0); MEAN CORPUSCULAR HEMOGLOBIN 29.4 pg (27.0-33.0); MEAN CORPUSCULAR HGB CONC 32.7 g/dl (32.0-36.5); MONO # 1.7 10^3/uL (0.0-0.8); MONO % 19.6 % (2.0-8.0); NEUTROPHILS % 58.5 % (36.0-66.0); PLATELET COUNT, AUTOMATED 342 10^3/uL (150-450); RED BLOOD COUNT 4.28 10^6/uL (4.00-5.40); WHITE BLOOD COUNT 8.5 10^3/uL (4.0-10.0)
[2023-12-08 14:38] LABS: FREE T3 2.5 PG/ML (2.3-4.2); FREE T4 0.77 NG/DL (0.89-1.76); THYROID STIMULATING HORMONE 1.944 uIU/ML (0.55-4.78)
[2023-12-08 15:48] LABS: ALBUMIN 2.1 G/DL (3.2-5.2); ALKALINE PHOSPHATASE 132 U/L (46-116); ALT/SGPT 19 U/L (7.0-40); AST/SGOT 20 U/L (<34); BILIRUBIN,TOTAL 0.3 MG/DL (0.3-1.2); BLOOD UREA NITROGEN 15 MG/DL (9-23); CALCIUM LEVEL 7.7 MG/DL (8.3-10.6); CARBON DIOXIDE LEVEL 31 MMOL/L (20-31); CHLORIDE LEVEL 104 MMOL/L (98-107); CREATININE FOR GFR 0.93 MG/DL (0.55-1.30); GLOMERULAR FILTRATION RATE > 60.0 (>32); GLUCOSE, FASTING 92 MG/DL (74-106); MAGNESIUM LEVEL 1.8 MG/DL (1.8-2.4); POTASSIUM SERUM 3.9 MMOL/L (3.5-5.1); SODIUM LEVEL 137 MMOL/L (136-145); TOTAL PROTEIN 4.7 G/DL (5.7-8.2)
[2023-12-09 10:25] VITALS: BP 110/77; O2SAT 100
[2023-12-09] MEDS: dexAMETHasone 4 MG TAB PO SCH (11:01)
[2023-12-09] MEDS: PROCHLORPERAZINE 5MG TAB PO SCH (11:02)
[2023-12-09] MEDS: ENFORTUMAB VEDOTIN EJFV IV SCH (11:56)
[2023-12-09] MEDS: NS IV SCH (11:56)
[2023-12-09] MEDS: PEMBROLIZUMAB 200 MG in NS 100 ML IV SCH (12:47)
[2023-12-09] MEDS: SODIUM CHLORIDE 0.9% INJ 10 ML SYR IV PRN (13:20)
[2023-12-15 14:42] LABS: BASO % 0.5 % (0.0-1.0); EOS # 0.1 10^3/uL (0.0-0.5); EOS % 1.5 % (0.0-3.0); HEMATOCRIT 40.6 % (36.0-47.0); HEMOGLOBIN 13.3 g/dl (12.0-15.5); LYMPH % 22.8 % (24.0-44.0); MEAN CORPUSCULAR HEMOGLOBIN 29.2 pg (27.0-33.0); MEAN CORPUSCULAR HGB CONC 32.8 g/dl (32.0-36.5); MEAN CORPUSCULAR VOLUME 89.2 fl (80.0-96.0); MONO # 1.4 10^3/uL (0.0-0.8); NEUTROPHILS # 5.1 10^3/uL (1.5-8.5); NEUTROPHILS % 58.7 % (36.0-66.0); PLATELET COUNT, AUTOMATED 368 10^3/uL (150-450); RED BLOOD COUNT 4.55 10^6/uL (4.00-5.40); WHITE BLOOD COUNT 8.7 10^3/uL (4.0-10.0)
[2023-12-15 15:16] LABS: ALBUMIN 2.1 G/DL (3.2-5.2); ALKALINE PHOSPHATASE 141 U/L (46-116); ALT/SGPT 21 U/L (7.0-40); AST/SGOT 21 U/L (<34); BILIRUBIN,TOTAL 0.4 MG/DL (0.3-1.2); BLOOD UREA NITROGEN 13 MG/DL (9-23); CALCIUM LEVEL 7.7 MG/DL (8.3-10.6); CARBON DIOXIDE LEVEL 28 MMOL/L (20-31); CHLORIDE LEVEL 105 MMOL/L (98-107); GLOMERULAR FILTRATION RATE > 60.0 (>32); GLUCOSE, FASTING 92 MG/DL (74-106); SODIUM LEVEL 136 MMOL/L (136-145); TOTAL PROTEIN 4.5 G/DL (5.7-8.2)
[2023-12-16 11:30] VITALS: BP 118/74; O2SAT 99
[2023-12-16] MEDS: MAG SULF 1GM/100ML (MAG RUN) 100 ML IV SCH (11:56)
[2023-12-16] MEDS: KCL 10MEQ/100ML SWI (KRUN) 100 ML IV SCH (11:56)
[2023-12-16] MEDS: dexAMETHasone 4 MG TAB PO SCH (11:57)
[2023-12-16] MEDS: PROCHLORPERAZINE 5MG TAB PO SCH (11:57)
[2023-12-16] MEDS: ENFORTUMAB VEDOTIN EJFV IV SCH (12:58)
[2023-12-16] MEDS: NS IV SCH (12:58)
[2023-12-29] MEDS: SODIUM CHLORIDE 0.9% INJ 10 ML SYR IV PRN (14:08)
[2023-12-29 14:16] LABS: BASO % 0.5 % (0.0-1.0); EOS # 0.1 10^3/uL (0.0-0.5); EOS % 0.8 % (0.0-3.0); HEMATOCRIT 38.6 % (36.0-47.0); HEMOGLOBIN 12.6 g/dl (12.0-15.5); LYMPH # 1.9 10^3/uL (1.5-5.0); LYMPH % 22.7 % (24.0-44.0); MEAN CORPUSCULAR HEMOGLOBIN 29.9 pg (27.0-33.0); MEAN CORPUSCULAR HGB CONC 32.6 g/dl (32.0-36.5); MEAN CORPUSCULAR VOLUME 91.7 fl (80.0-96.0); MONO # 1.5 10^3/uL (0.0-0.8); MONO % 18.3 % (2.0-8.0); NEUTROPHILS # 4.7 10^3/uL (1.5-8.5); NEUTROPHILS % 57.5 % (36.0-66.0); PLATELET COUNT, AUTOMATED 391 10^3/uL (150-450); RED BLOOD COUNT 4.21 10^6/uL (4.00-5.40); WHITE BLOOD COUNT 8.2 10^3/uL (4.0-10.0)
[2023-12-29 14:51] LABS: ALBUMIN 1.8 G/DL (3.2-5.2); BILIRUBIN,TOTAL 0.3 MG/DL (0.3-1.2); CALCIUM LEVEL 7.4 MG/DL (8.3-10.6); CREATININE FOR GFR 1.01 MG/DL (0.55-1.30); MAGNESIUM LEVEL 1.6 MG/DL (1.8-2.4); POTASSIUM SERUM 3.7 MMOL/L (3.5-5.1); TOTAL PROTEIN 4.2 G/DL (5.7-8.2)
[2023-12-29 14:55] LABS: FREE T4 0.87 NG/DL (0.89-1.76); THYROID STIMULATING HORMONE 1.796 uIU/ML (0.55-4.78)
[2023-12-29 14:57] LABS: FREE T3 2.4 PG/ML (2.3-4.2)
[2023-12-30 11:00] VITALS: BP 127/87; O2SAT 99
[2023-12-30] MEDS: MAG SULF 1GM/100ML (MAG RUN) 100 ML IV SCH (11:48)
[2023-12-30] MEDS: KCL 10MEQ/100ML SWI (KRUN) 100 ML IV SCH (11:49)
[2023-12-30] MEDS: dexAMETHasone 4 MG TAB PO SCH (11:49)
[2023-12-30] MEDS: PROCHLORPERAZINE 5MG TAB PO SCH (11:51)
[2023-12-30] MEDS: ENFORTUMAB VEDOTIN EJFV IV SCH (12:51)
[2023-12-30] MEDS: NS IV SCH (12:51)
[2023-12-30] MEDS: PEMBROLIZUMAB 200 MG in NS 100 ML IV SCH (13:59)
[2023-12-30] MEDS: SODIUM CHLORIDE 0.9% INJ 10 ML SYR IV PRN (14:34)
[2024-01-06 12:06] LABS: BASO # 0.1 10^3/uL (0.0-0.2); BASO % 0.4 % (0.0-1.0); EOS % 0.3 % (0.0-3.0); HEMATOCRIT 38.5 % (36.0-47.0); HEMOGLOBIN 12.5 g/dl (12.0-15.5); LYMPH # 1.8 10^3/uL (1.5-5.0); LYMPH % 13.6 % (24.0-44.0); MEAN CORPUSCULAR HGB CONC 32.5 g/dl (32.0-36.5); MEAN CORPUSCULAR VOLUME 92.3 fl (80.0-96.0); MONO # 1.7 10^3/uL (0.0-0.8); MONO % 13.4 % (2.0-8.0); NEUTROPHILS # 9.3 10^3/uL (1.5-8.5); NEUTROPHILS % 71.9 % (36.0-66.0); PLATELET COUNT, AUTOMATED 363 10^3/uL (150-450); RED BLOOD COUNT 4.17 10^6/uL (4.00-5.40)
[2024-01-06 12:39] LABS: ALBUMIN 1.6 G/DL (3.2-5.2); BILIRUBIN,TOTAL 0.4 MG/DL (0.3-1.2); CALCIUM LEVEL 7.2 MG/DL (8.3-10.6); CREATININE FOR GFR 1.03 MG/DL (0.55-1.30); GLOMERULAR FILTRATION RATE 54.7 (>32); POTASSIUM SERUM 3.6 MMOL/L (3.5-5.1)
[2024-01-06] MEDS: dexAMETHasone 4 MG TAB PO SCH (13:34)
[2024-01-06] MEDS: PROCHLORPERAZINE 5MG TAB PO SCH (13:34)
[2024-01-06 13:45] VITALS: BP 116/75; O2SAT 98
[2024-01-06] MEDS: ENFORTUMAB VEDOTIN EJFV IV SCH (14:14)
[2024-01-06] MEDS: NS IV SCH (14:14)
[2024-01-06] MEDS: SODIUM CHLORIDE 0.9% INJ 10 ML SYR IV PRN (14:52)
[2024-01-19] MEDS: SODIUM CHLORIDE 0.9% INJ 10 ML SYR IV PRN (10:51)
[2024-01-19 11:10] LABS: BASO # 0.1 10^3/uL (0.0-0.2); BASO % 0.5 % (0.0-1.0); EOS # 0.1 10^3/uL (0.0-0.5); EOS % 0.9 % (0.0-3.0); HEMATOCRIT 38.7 % (36.0-47.0); HEMOGLOBIN 12.5 g/dl (12.0-15.5); LYMPH # 1.5 10^3/uL (1.5-5.0); LYMPH % 13.2 % (24.0-44.0); MEAN CORPUSCULAR HEMOGLOBIN 30.6 pg (27.0-33.0); MEAN CORPUSCULAR HGB CONC 32.3 g/dl (32.0-36.5); MEAN CORPUSCULAR VOLUME 94.6 fl (80.0-96.0); MONO # 1.4 10^3/uL (0.0-0.8); MONO % 12.8 % (2.0-8.0); NEUTROPHILS # 8.1 10^3/uL (1.5-8.5); NEUTROPHILS % 72.2 % (36.0-66.0); PLATELET COUNT, AUTOMATED 367 10^3/uL (150-450); RED BLOOD COUNT 4.09 10^6/uL (4.00-5.40); WHITE BLOOD COUNT 11.2 10^3/uL (4.0-10.0)
[2024-01-19 11:42] LABS: ALBUMIN 1.6 G/DL (3.2-5.2); BILIRUBIN,TOTAL 0.3 MG/DL (0.3-1.2); CALCIUM LEVEL 7.6 MG/DL (8.3-10.6); CREATININE FOR GFR 1.01 MG/DL (0.55-1.30); MAGNESIUM LEVEL 2.1 MG/DL (1.8-2.4); POTASSIUM SERUM 4.1 MMOL/L (3.5-5.1); TOTAL PROTEIN 4.1 G/DL (5.7-8.2)
[2024-01-19 11:45] LABS: FREE T3 2.5 PG/ML (2.3-4.2); FREE T4 0.82 NG/DL (0.89-1.76); THYROID STIMULATING HORMONE 2.948 uIU/ML (0.55-4.78)
[2024-01-20 10:44] VITALS: BP 122/80; O2SAT 96
[2024-01-20] MEDS: PROCHLORPERAZINE 5MG TAB PO SCH (11:31)
[2024-01-20] MEDS: dexAMETHasone 4 MG TAB PO SCH (11:32)
[2024-01-20] MEDS: ENFORTUMAB VEDOTIN EJFV IV SCH (12:26)
[2024-01-20] MEDS: NS IV SCH (12:26)
[2024-01-20] MEDS: PEMBROLIZUMAB 200 MG in NS 100 ML IV SCH (13:29)
[2024-01-20] MEDS: SODIUM CHLORIDE 0.9% INJ 10 ML SYR IV PRN (14:02)
[2024-01-26] MEDS: SODIUM CHLORIDE 0.9% INJ 10 ML SYR IV PRN (10:38)
[2024-01-26 11:06] LABS: BASO % 0.4 % (0.0-1.0); EOS # 0.1 10^3/uL (0.0-0.5); HEMOGLOBIN 12.7 g/dl (12.0-15.5); LYMPH # 1.7 10^3/uL (1.5-5.0); MEAN CORPUSCULAR HEMOGLOBIN 30.8 pg (27.0-33.0); MEAN CORPUSCULAR HGB CONC 32.6 g/dl (32.0-36.5); MEAN CORPUSCULAR VOLUME 94.4 fl (80.0-96.0); MONO # 1.5 10^3/uL (0.0-0.8); MONO % 13.6 % (2.0-8.0); NEUTROPHILS # 7.9 10^3/uL (1.5-8.5); NEUTROPHILS % 69.4 % (36.0-66.0); PLATELET COUNT, AUTOMATED 400 10^3/uL (150-450); RED BLOOD COUNT 4.13 10^6/uL (4.00-5.40); WHITE BLOOD COUNT 11.3 10^3/uL (4.0-10.0)
[2024-01-26 11:45] LABS: MAGNESIUM LEVEL 1.9 MG/DL (1.8-2.4)
[2024-01-26 11:46] LABS: ALBUMIN 1.5 G/DL (3.2-5.2); BILIRUBIN,TOTAL 0.3 MG/DL (0.3-1.2); CALCIUM LEVEL 7.4 MG/DL (8.3-10.6); CREATININE FOR GFR 0.98 MG/DL (0.55-1.30); POTASSIUM SERUM 4.5 MMOL/L (3.5-5.1); TOTAL PROTEIN 4.1 G/DL (5.7-8.2)
[2024-01-26 11:51] LABS: FREE T4 0.93 NG/DL (0.89-1.76); THYROID STIMULATING HORMONE 3.072 uIU/ML (0.55-4.78)
[2024-01-26 11:52] LABS: FREE T3 2.7 PG/ML (2.3-4.2)
[2024-01-27 10:32] VITALS: BP 126/76; O2SAT 99
[2024-01-27] MEDS: dexAMETHasone 4 MG TAB PO SCH (10:57)
[2024-01-27] MEDS: PROCHLORPERAZINE 5MG TAB PO SCH (10:57)
[2024-01-27] MEDS: ENFORTUMAB VEDOTIN EJFV IV SCH (12:04)
[2024-01-27] MEDS: NS IV SCH (12:04)
[2024-01-27] MEDS: SODIUM CHLORIDE 0.9% INJ 10 ML SYR IV PRN (12:35)
[2024-02-09] MEDS: SODIUM CHLORIDE 0.9% INJ 10 ML SYR IV PRN (10:39)
[2024-02-09 10:49] LABS: BASO # 0.1 10^3/uL (0.0-0.2); BASO % 0.8 % (0.0-1.0); EOS # 0.2 10^3/uL (0.0-0.5); EOS % 1.7 % (0.0-3.0); HEMATOCRIT 37.4 % (36.0-47.0); HEMOGLOBIN 12.1 g/dl (12.0-15.5); LYMPH # 1.8 10^3/uL (1.5-5.0); LYMPH % 15.5 % (24.0-44.0); MEAN CORPUSCULAR HEMOGLOBIN 31.3 pg (27.0-33.0); MEAN CORPUSCULAR HGB CONC 32.4 g/dl (32.0-36.5); MEAN CORPUSCULAR VOLUME 96.9 fl (80.0-96.0); MONO # 1.6 10^3/uL (0.0-0.8); MONO % 13.6 % (2.0-8.0); NEUTROPHILS # 7.8 10^3/uL (1.5-8.5); PLATELET COUNT, AUTOMATED 352 10^3/uL (150-450); RED BLOOD COUNT 3.86 10^6/uL (4.00-5.40); WHITE BLOOD COUNT 11.5 10^3/uL (4.0-10.0)
[2024-02-09 11:20] LABS: ALBUMIN 1.5 G/DL (3.2-5.2); ALKALINE PHOSPHATASE 191 U/L (46-116); ALT/SGPT 11 U/L (7.0-40); AST/SGOT 17 U/L (<34); BILIRUBIN,TOTAL 0.3 MG/DL (0.3-1.2); BLOOD UREA NITROGEN 11 MG/DL (9-23); CALCIUM LEVEL 7.4 MG/DL (8.3-10.6); CARBON DIOXIDE LEVEL 28 MMOL/L (20-31); CHLORIDE LEVEL 108 MMOL/L (98-107); CREATININE FOR GFR 0.94 MG/DL (0.55-1.30); GLOMERULAR FILTRATION RATE > 60.0 (>32); GLUCOSE, FASTING 97 MG/DL (74-106); MAGNESIUM LEVEL 1.9 MG/DL (1.8-2.4); POTASSIUM SERUM 4.2 MMOL/L (3.5-5.1); SODIUM LEVEL 140 MMOL/L (136-145); TOTAL PROTEIN 4.2 G/DL (5.7-8.2)
[2024-02-09 11:36] LABS: FREE T4 0.83 NG/DL (0.89-1.76); THYROID STIMULATING HORMONE 2.972 uIU/ML (0.55-4.78)
[2024-02-09 12:17] LABS: FREE T3 3.4 PG/ML (2.3-4.2)
[2024-02-10 10:14] VITALS: BP 120/83; O2SAT 92
[2024-02-10] MEDS: dexAMETHasone 4 MG TAB PO SCH (11:18)
[2024-02-10] MEDS: PROCHLORPERAZINE 5MG TAB PO SCH (11:18)
[2024-02-10] MEDS: ENFORTUMAB VEDOTIN EJFV IV SCH (12:04)
[2024-02-10] MEDS: NS IV SCH (12:04)
[2024-02-10] MEDS: NS 50 ML IV PRN (12:09)
[2024-02-10] MEDS: PEMBROLIZUMAB 200 MG in NS 100 ML IV SCH (13:27)
[2024-02-10] MEDS: SODIUM CHLORIDE 0.9% INJ 10 ML SYR IV PRN (13:27)
[2024-02-16] MEDS: SODIUM CHLORIDE 0.9% INJ 10 ML SYR IV PRN (13:07)
[2024-02-16 13:35] LABS: BASO # 0.1 10^3/uL (0.0-0.2); BASO % 0.4 % (0.0-1.0); EOS # 0.3 10^3/uL (0.0-0.5); EOS % 2.2 % (0.0-3.0); HEMOGLOBIN 12.6 g/dl (12.0-15.5); LYMPH # 2.1 10^3/uL (1.5-5.0); LYMPH % 18.9 % (24.0-44.0); MEAN CORPUSCULAR HEMOGLOBIN 31.3 pg (27.0-33.0); MEAN CORPUSCULAR HGB CONC 32.3 g/dl (32.0-36.5); MONO # 1.7 10^3/uL (0.0-0.8); MONO % 14.7 % (2.0-8.0); NEUTROPHILS # 7.2 10^3/uL (1.5-8.5); NEUTROPHILS % 63.4 % (36.0-66.0); PLATELET COUNT, AUTOMATED 372 10^3/uL (150-450); RED BLOOD COUNT 4.02 10^6/uL (4.00-5.40); WHITE BLOOD COUNT 11.3 10^3/uL (4.0-10.0)
[2024-02-16 14:09] LABS: ALBUMIN 1.6 G/DL (3.2-5.2); BILIRUBIN,TOTAL 0.3 MG/DL (0.3-1.2); CALCIUM LEVEL 7.8 MG/DL (8.3-10.6); CREATININE FOR GFR 0.97 MG/DL (0.55-1.30); GLOMERULAR FILTRATION RATE 58.7 (>32); POTASSIUM SERUM 3.8 MMOL/L (3.5-5.1); TOTAL PROTEIN 4.3 G/DL (5.7-8.2)
[2024-02-17 12:15] VITALS: BP 127/82; O2SAT 96
[2024-02-17] MEDS: dexAMETHasone 4 MG TAB PO SCH (12:38)
[2024-02-17] MEDS: PROCHLORPERAZINE 5MG TAB PO SCH (12:39)
[2024-02-17] MEDS: NS IV SCH (13:24)
[2024-02-17] MEDS: ENFORTUMAB VEDOTIN EJFV IV SCH (13:24)
[2024-02-17] MEDS: NS 50 ML IV PRN (13:28)
[2024-02-17] MEDS: SODIUM CHLORIDE 0.9% INJ 10 ML SYR IV PRN (14:07)
[2024-03-01] MEDS: SODIUM CHLORIDE 0.9% INJ 10 ML SYR IV PRN (10:36)
[2024-03-01 10:45] LABS: BASO % 0.3 % (0.0-1.0); EOS # 0.1 10^3/uL (0.0-0.5); EOS % 0.9 % (0.0-3.0); HEMATOCRIT 37.6 % (36.0-47.0); HEMOGLOBIN 12.4 g/dl (12.0-15.5); LYMPH # 1.3 10^3/uL (1.5-5.0); MEAN CORPUSCULAR VOLUME 96.9 fl (80.0-96.0); MONO # 1.3 10^3/uL (0.0-0.8); MONO % 14.7 % (2.0-8.0); NEUTROPHILS # 6.1 10^3/uL (1.5-8.5); NEUTROPHILS % 68.7 % (36.0-66.0); PLATELET COUNT, AUTOMATED 354 10^3/uL (150-450); RED BLOOD COUNT 3.88 10^6/uL (4.00-5.40); WHITE BLOOD COUNT 8.9 10^3/uL (4.0-10.0)
[2024-03-01 11:15] LABS: ALBUMIN 1.7 G/DL (3.2-5.2); ALKALINE PHOSPHATASE 344 U/L (35-104); ALT/SGPT 22 U/L (7.0-40); AST/SGOT 59 U/L (<34); BILIRUBIN,TOTAL 0.4 MG/DL (0.3-1.2); BLOOD UREA NITROGEN 12 MG/DL (9-23); CALCIUM LEVEL 7.7 MG/DL (8.3-10.6); CARBON DIOXIDE LEVEL 28 MMOL/L (20-31); CHLORIDE LEVEL 110 MMOL/L (98-107); CREATININE FOR GFR 0.95 MG/DL (0.55-1.30); GLOMERULAR FILTRATION RATE > 60.0 (>32); GLUCOSE, FASTING 106 MG/DL (74-106); POTASSIUM SERUM 3.8 MMOL/L (3.5-5.1); SODIUM LEVEL 141 MMOL/L (136-145); TOTAL PROTEIN 4.6 G/DL (5.7-8.2)
[2024-03-01 11:19] LABS: FREE T4 0.79 NG/DL (0.89-1.76); THYROID STIMULATING HORMONE 3.545 uIU/ML (0.55-4.78)
[2024-03-01 11:20] LABS: FREE T3 2.9 PG/ML (2.3-4.2)
[2024-03-02 10:52] VITALS: BP 124/80; O2SAT 92
[2024-03-02] MEDS: MAG SULF 1GM/100ML (MAG RUN) 100 ML IV SCH (11:52)
[2024-03-02] MEDS: PROCHLORPERAZINE 5MG TAB PO SCH (11:53)
[2024-03-02] MEDS: dexAMETHasone 4 MG TAB PO SCH (11:53)
[2024-03-02] MEDS: ENFORTUMAB VEDOTIN EJFV IV SCH (14:17)
[2024-03-02] MEDS: NS 50 ML IV PRN (14:17)
[2024-03-02] MEDS: NS IV SCH (14:17)
[2024-03-02] MEDS: PEMBROLIZUMAB 200 MG in NS 100 ML IV SCH (15:14)
[2024-03-02] MEDS: SODIUM CHLORIDE 0.9% INJ 10 ML SYR IV PRN (15:48)
[2024-03-09 10:12] VITALS: BP 128/78; O2SAT 100
[2024-03-09 10:25] LABS: BASO % 0.4 % (0.0-1.0); EOS # 0.2 10^3/uL (0.0-0.5); EOS % 1.7 % (0.0-3.0); HEMATOCRIT 39.1 % (36.0-47.0); HEMOGLOBIN 12.7 g/dl (12.0-15.5); LYMPH # 1.2 10^3/uL (1.5-5.0); LYMPH % 12.4 % (24.0-44.0); MEAN CORPUSCULAR HEMOGLOBIN 31.8 pg (27.0-33.0); MEAN CORPUSCULAR HGB CONC 32.5 g/dl (32.0-36.5); MONO # 1.5 10^3/uL (0.0-0.8); MONO % 14.9 % (2.0-8.0); NEUTROPHILS % 70.1 % (36.0-66.0); PLATELET COUNT, AUTOMATED 363 10^3/uL (150-450); RED BLOOD COUNT 3.99 10^6/uL (4.00-5.40)
[2024-03-09 10:55] LABS: ALBUMIN 1.8 G/DL (3.2-5.2); ALKALINE PHOSPHATASE 630 U/L (35-104); ALT/SGPT 57 U/L (7.0-40); AST/SGOT 121 U/L (<34); BILIRUBIN,TOTAL 0.4 MG/DL (0.3-1.2); BLOOD UREA NITROGEN 11 MG/DL (9-23); CALCIUM LEVEL 7.8 MG/DL (8.3-10.6); CARBON DIOXIDE LEVEL 28 MMOL/L (20-31); CHLORIDE LEVEL 107 MMOL/L (98-107); CREATININE FOR GFR 0.94 MG/DL (0.55-1.30); GLOMERULAR FILTRATION RATE > 60.0 (>32); GLUCOSE, FASTING 103 MG/DL (74-106); POTASSIUM SERUM 3.9 MMOL/L (3.5-5.1); SODIUM LEVEL 142 MMOL/L (136-145); TOTAL PROTEIN 4.8 G/DL (5.7-8.2)
[2024-03-09] MEDS: dexAMETHasone 4 MG TAB PO SCH (11:54)
[2024-03-09] MEDS: PROCHLORPERAZINE 5MG TAB PO SCH (11:54)
[2024-03-09] MEDS: NS 50 ML IV PRN (11:54)
[2024-03-09] MEDS: NS IV SCH (12:51)
[2024-03-09] MEDS: ENFORTUMAB VEDOTIN EJFV IV SCH (12:51)
[2024-03-09] MEDS: SODIUM CHLORIDE 0.9% INJ 10 ML SYR IV PRN (13:34)
[2024-03-23] MEDS: SODIUM CHLORIDE 0.9% INJ 10 ML SYR IV PRN (10:21)
[2024-03-23 10:32] LABS: BASO % 0.3 % (0.0-1.0); EOS % 0.2 % (0.0-3.0); HEMATOCRIT 38.1 % (36.0-47.0); LYMPH # 0.9 10^3/uL (1.5-5.0); LYMPH % 10.4 % (24.0-44.0); MEAN CORPUSCULAR HEMOGLOBIN 30.8 pg (27.0-33.0); MEAN CORPUSCULAR HGB CONC 31.5 g/dl (32.0-36.5); MEAN CORPUSCULAR VOLUME 97.9 fl (80.0-96.0); MONO # 1.4 10^3/uL (0.0-0.8); MONO % 15.9 % (2.0-8.0); NEUTROPHILS # 6.5 10^3/uL (1.5-8.5); NEUTROPHILS % 72.6 % (36.0-66.0); PLATELET COUNT, AUTOMATED 371 10^3/uL (150-450); RED BLOOD COUNT 3.89 10^6/uL (4.00-5.40)
[2024-03-23 11:06] LABS: ALBUMIN 1.8 G/DL (3.2-5.2); BILIRUBIN,TOTAL 0.4 MG/DL (0.3-1.2); CALCIUM LEVEL 7.7 MG/DL (8.3-10.6); CREATININE FOR GFR 0.96 MG/DL (0.55-1.30); GLOMERULAR FILTRATION RATE 59.4 (>32); MAGNESIUM LEVEL 1.7 MG/DL (1.8-2.4); POTASSIUM SERUM 3.9 MMOL/L (3.5-5.1); TOTAL PROTEIN 4.6 G/DL (5.7-8.2)
[2024-03-23 11:11] LABS: FREE T4 0.79 NG/DL (0.89-1.76); THYROID STIMULATING HORMONE 1.711 uIU/ML (0.55-4.78)
[2024-03-23 11:13] LABS: FREE T3 2.6 PG/ML (2.3-4.2)
[2024-03-24 10:10] VITALS: BP 113/70; O2SAT 97
[2024-03-24] MEDS: NS 50 ML IV PRN (10:44)
[2024-03-24] MEDS: MAG SULF 1GM/100ML (MAG RUN) 100 ML IV ONE (10:45)
[2024-03-24] MEDS: PROCHLORPERAZINE 5MG TAB PO SCH (10:46)
[2024-03-24] MEDS: dexAMETHasone 4 MG TAB PO SCH (10:46)
[2024-03-24] MEDS: ENFORTUMAB VEDOTIN EJFV IV SCH (11:42)
[2024-03-24] MEDS: NS IV SCH (11:42)
[2024-03-24] MEDS: PEMBROLIZUMAB 200 MG in NS 100 ML IV SCH (12:54)
[2024-03-24] MEDS: SODIUM CHLORIDE 0.9% INJ 10 ML SYR IV PRN (13:27)
[2024-03-30 12:05] VITALS: BP 111/65; O2SAT 99
[2024-03-30 12:22] LABS: BASO % 0.3 % (0.0-1.0); EOS # 0.1 10^3/uL (0.0-0.5); EOS % 0.6 % (0.0-3.0); HEMATOCRIT 37.8 % (36.0-47.0); HEMOGLOBIN 12.3 g/dl (12.0-15.5); LYMPH % 9.3 % (24.0-44.0); MEAN CORPUSCULAR HEMOGLOBIN 31.9 pg (27.0-33.0); MEAN CORPUSCULAR HGB CONC 32.5 g/dl (32.0-36.5); MEAN CORPUSCULAR VOLUME 98.2 fl (80.0-96.0); MONO # 1.6 10^3/uL (0.0-0.8); MONO % 15.5 % (2.0-8.0); NEUTROPHILS # 7.6 10^3/uL (1.5-8.5); NEUTROPHILS % 73.7 % (36.0-66.0); PLATELET COUNT, AUTOMATED 341 10^3/uL (150-450); RED BLOOD COUNT 3.85 10^6/uL (4.00-5.40); WHITE BLOOD COUNT 10.4 10^3/uL (4.0-10.0)
[2024-03-30 13:02] LABS: ALBUMIN 1.8 G/DL (3.2-5.2); ALKALINE PHOSPHATASE 666 U/L (35-104); ALT/SGPT 20 U/L (7.0-40); AST/SGOT 41 U/L (<34); BILIRUBIN,TOTAL 0.3 MG/DL (0.3-1.2); BLOOD UREA NITROGEN 14 MG/DL (9-23); CALCIUM LEVEL 7.9 MG/DL (8.3-10.6); CARBON DIOXIDE LEVEL 27 MMOL/L (20-31); CHLORIDE LEVEL 106 MMOL/L (98-107); CREATININE FOR GFR 0.85 MG/DL (0.55-1.30); GLOMERULAR FILTRATION RATE > 60.0 (>32); GLUCOSE, FASTING 124 MG/DL (74-106); POTASSIUM SERUM 3.7 MMOL/L (3.5-5.1); SODIUM LEVEL 140 MMOL/L (136-145); TOTAL PROTEIN 4.7 G/DL (5.7-8.2)
[2024-03-30] MEDS: dexAMETHasone 4 MG TAB PO SCH (13:11)
[2024-03-30] MEDS: PROCHLORPERAZINE 5MG TAB PO SCH (13:11)
[2024-03-30] MEDS: NS 50 ML IV PRN (13:13)
[2024-03-30] MEDS: ENFORTUMAB VEDOTIN EJFV IV SCH (14:26)
[2024-03-30] MEDS: NS IV SCH (14:26)
[2024-03-30] MEDS: SODIUM CHLORIDE 0.9% INJ 10 ML SYR IV PRN (15:01)
[2024-04-12] MEDS: SODIUM CHLORIDE 0.9% INJ 10 ML SYR IV PRN (09:38)
[2024-04-12 09:44] LABS: BASO % 0.4 % (0.0-1.0); EOS % 0.3 % (0.0-3.0); HEMATOCRIT 37.4 % (36.0-47.0); HEMOGLOBIN 12.1 g/dl (12.0-15.5); LYMPH % 10.7 % (24.0-44.0); MEAN CORPUSCULAR HEMOGLOBIN 30.6 pg (27.0-33.0); MEAN CORPUSCULAR HGB CONC 32.4 g/dl (32.0-36.5); MEAN CORPUSCULAR VOLUME 94.7 fl (80.0-96.0); MONO # 1.4 10^3/uL (0.0-0.8); MONO % 15.5 % (2.0-8.0); NEUTROPHILS # 6.5 10^3/uL (1.5-8.5); NEUTROPHILS % 72.7 % (36.0-66.0); PLATELET COUNT, AUTOMATED 407 10^3/uL (150-450); RED BLOOD COUNT 3.95 10^6/uL (4.00-5.40)
[2024-04-12 10:19] LABS: ALBUMIN 1.9 G/DL (3.2-5.2); ALKALINE PHOSPHATASE 668 U/L (35-104); ALT/SGPT 25 U/L (7.0-40); AST/SGOT 48 U/L (<34); BILIRUBIN,TOTAL 0.4 MG/DL (0.3-1.2); BLOOD UREA NITROGEN 12 MG/DL (9-23); CALCIUM LEVEL 8.2 MG/DL (8.3-10.6); CARBON DIOXIDE LEVEL 29 MMOL/L (20-31); CHLORIDE LEVEL 105 MMOL/L (98-107); CREATININE FOR GFR 0.83 MG/DL (0.55-1.30); GLOMERULAR FILTRATION RATE > 60.0 (>32); GLUCOSE, FASTING 105 MG/DL (74-106); POTASSIUM SERUM 3.9 MMOL/L (3.5-5.1); SODIUM LEVEL 139 MMOL/L (136-145); TOTAL PROTEIN 4.7 G/DL (5.7-8.2)
[2024-04-12 10:30] LABS: MAGNESIUM LEVEL 1.8 MG/DL (1.8-2.4)
[2024-04-12 10:35] LABS: FREE T4 0.92 NG/DL (0.89-1.76); THYROID STIMULATING HORMONE 2.849 uIU/ML (0.55-4.78)
[2024-04-12 10:37] LABS: FREE T3 2.9 PG/ML (2.3-4.2)
[2024-04-13 09:39] VITALS: BP 135/81; O2SAT 99
[2024-04-13] MEDS: NS 50 ML IV PRN (10:35)
[2024-04-13] MEDS: PROCHLORPERAZINE 5MG TAB PO SCH (10:35)
[2024-04-13] MEDS: dexAMETHasone 4 MG TAB PO SCH (10:36)
[2024-04-13] MEDS: ENFORTUMAB VEDOTIN EJFV IV SCH (11:23)
[2024-04-13] MEDS: NS IV SCH (11:23)
[2024-04-13] MEDS: PEMBROLIZUMAB 200 MG in NS 100 ML IV SCH (12:32)
[2024-04-13] MEDS: SODIUM CHLORIDE 0.9% INJ 10 ML SYR IV PRN (13:06)
[~2024-04-20] VITALS: Ht 154.9 cm; Wt 47.4 kg
[~2024-04-20 11:21] MED LIST changes: +ENFORTUMAB VEDOTIN EJFV IV SCH; +KCL 10MEQ/100ML SWI (KRUN) 100 ML IV SCH; +MAG SULF 1GM/100ML (MAG RUN) 100 ML IV ONE; +MAG SULF 1GM/100ML (MAG RUN) 100 ML IV SCH; +NS IV SCH; +PROCHLORPERAZINE 5MG TAB PO SCH; +SODIUM CHLORIDE 0.9% INJ 10 ML SYR IV PRN; +dexAMETHasone 4 MG TAB PO SCH
[2024-04-20 11:30] VITALS: BP 123/75; O2SAT 97
[2024-04-20 11:48] LABS: BASO % 0.4 % (0.0-1.0); EOS # 0.1 10^3/uL (0.0-0.5); EOS % 0.7 % (0.0-3.0); HEMATOCRIT 38.6 % (36.0-47.0); HEMOGLOBIN 12.4 g/dl (12.0-15.5); LYMPH # 1.3 10^3/uL (1.5-5.0); LYMPH % 12.9 % (24.0-44.0); MEAN CORPUSCULAR HEMOGLOBIN 30.8 pg (27.0-33.0); MEAN CORPUSCULAR HGB CONC 32.1 g/dl (32.0-36.5); MEAN CORPUSCULAR VOLUME 95.8 fl (80.0-96.0); MONO # 1.7 10^3/uL (0.0-0.8); NEUTROPHILS # 6.8 10^3/uL (1.5-8.5); NEUTROPHILS % 68.1 % (36.0-66.0); PLATELET COUNT, AUTOMATED 348 10^3/uL (150-450); RED BLOOD COUNT 4.03 10^6/uL (4.00-5.40); WHITE BLOOD COUNT 9.9 10^3/uL (4.0-10.0)
[2024-04-20 12:26] LABS: ALBUMIN 1.8 G/DL (3.2-5.2); ALKALINE PHOSPHATASE 651 U/L (35-104); ALT/SGPT 21 U/L (7.0-40); AST/SGOT 45 U/L (<34); BILIRUBIN,TOTAL 0.4 MG/DL (0.3-1.2); BLOOD UREA NITROGEN 18 MG/DL (9-23); CALCIUM LEVEL 7.9 MG/DL (8.3-10.6); CARBON DIOXIDE LEVEL 28 MMOL/L (20-31); CHLORIDE LEVEL 105 MMOL/L (98-107); CREATININE FOR GFR 0.89 MG/DL (0.55-1.30); GLOMERULAR FILTRATION RATE > 60.0 (>32); GLUCOSE, FASTING 101 MG/DL (74-106); POTASSIUM SERUM 3.5 MMOL/L (3.5-5.1); SODIUM LEVEL 139 MMOL/L (136-145); TOTAL PROTEIN 4.8 G/DL (5.7-8.2)
[2024-04-20] MEDS: PROCHLORPERAZINE 5MG TAB PO SCH (12:36)
[2024-04-20] MEDS: dexAMETHasone 4 MG TAB PO SCH (12:36)
[2024-04-20] MEDS ORDERED: NS 50 ML IV PRN (13:30)
[2024-04-20] MEDS: ENFORTUMAB VEDOTIN EJFV IV SCH (13:42)
[2024-04-20] MEDS: NS IV SCH (13:42)
[2024-04-20] MEDS: SODIUM CHLORIDE 0.9% INJ 10 ML SYR IV PRN (13:44)
[2024-05-03] MEDS ORDERED: SODIUM CHLORIDE 0.9% INJ 10 ML SYR IV PRN (08:00)
[2024-05-04] MEDS ORDERED: dexAMETHasone 4 MG TAB PO SCH
[2024-05-04] MEDS ORDERED: PROCHLORPERAZINE 5MG TAB PO SCH
[2024-05-04] MEDS ORDERED: NS 50 ML IV PRN (08:00)
[2024-05-04] MEDS ORDERED: SODIUM CHLORIDE 0.9% INJ 10 ML SYR IV PRN (08:00)
[2024-05-08] MEDS ORDERED: TRIA1CR80 TOP (15:11)
[2024-05-08] MEDS ORDERED: MIRA3350 PO (15:11)
[2024-05-08] MEDS ORDERED: MORP15TA2 PO (15:13)
[2024-05-08] MEDS ORDERED: FURO20TA2 PO (15:13)
[2024-05-08] MEDS ORDERED: MORP30TASA PO (15:13)
[2024-05-11] MEDS ORDERED: PROCHLORPERAZINE 5MG TAB PO SCH
[2024-05-11] MEDS ORDERED: dexAMETHasone 4 MG TAB PO SCH
[2024-05-18] MEDS ORDERED: PROCHLORPERAZINE 5MG TAB PO SCH
[2024-05-18] MEDS ORDERED: dexAMETHasone 4 MG TAB PO SCH
[2024-05-25] MEDS ORDERED: dexAMETHasone 4 MG TAB PO SCH
[2024-05-25] MEDS ORDERED: PROCHLORPERAZINE 5MG TAB PO SCH
== END 2024-05-31 | disposition expired ==
LOC: M ONCM 11:21
PROVIDERS: ATTEND Internal Medicine Hematology & Oncology
DX: Z51.11 Encounter for antineoplastic chemotherapy (principal); C67.9 Malignant neoplasm of bladder, unspecified; C79.51 Secondary malignant neoplasm of bone; S21.90XD Unspecified open wound of unspecified part of thorax, subsequent encounter; I51.9 Heart disease, unspecified; R53.0 Neoplastic (malignant) related fatigue; E07.9 Disorder of thyroid, unspecified; Z90.5 Acquired absence of kidney; Z79.891 Long term (current) use of opiate analgesic; Z79.899 Other long term (current) drug therapy; E83.42 Hypomagnesemia; R21 Rash and other nonspecific skin eruption; G89.3 Neoplasm related pain (acute) (chronic); G62.9 Polyneuropathy, unspecified; S31.000A Unspecified open wound of lower back and pelvis without penetration into retroperitoneum, initial encounter; Z51.5 Encounter for palliative care; R63.0 Anorexia; Z66 Do not resuscitate; Z99.89 Dependence on other enabling machines and devices; Z90.49 Acquired absence of other specified parts of digestive tract; R22.40 Localized swelling, mass and lump, unspecified lower limb; M54.9 Dorsalgia, unspecified; K21.9 Gastro-esophageal reflux disease without esophagitis; R19.7 Diarrhea, unspecified; R14.1 Gas pain; R63.8 Other symptoms and signs concerning food and fluid intake; R43.8 Other disturbances of smell and taste
CPT/HCPCS: 36415; 36591; 80053; 81001; 82607; 82746; 83550; 83615; 83735; 84439; 84443; 84481; 85025; 85610; 85730; 96361; 96365; 96366; 96367; 96368; 96375; 96413; 96415; 96417; G0463; J1100; J1642; J2405; J3475; J9177; J9271

== ENCOUNTER 2024-05-08 11:12 | Inpatient (IN) | payer MEDICARE ==
[~2024-05-08] VITALS: Ht 157.5 cm; Wt 47.7 kg
[~2024-05-08 11:12] MED LIST changes: -ENFORTUMAB VEDOTIN EJFV IV SCH; -KCL 10MEQ/100ML SWI (KRUN) 100 ML IV SCH; -MAG SULF 1GM/100ML (MAG RUN) 100 ML IV ONE; -MAG SULF 1GM/100ML (MAG RUN) 100 ML IV SCH; -NS IV SCH; -PROCHLORPERAZINE 5MG TAB PO SCH; -SODIUM CHLORIDE 0.9% INJ 10 ML SYR IV PRN; -dexAMETHasone 4 MG TAB PO SCH
[2024-05-08 12:16] LABS: BASO # 0.1 10^3/uL (0.0-0.2); BASO % 0.8 % (0.0-1.0); EOS % 0.1 % (0.0-3.0); HEMOGLOBIN 15.9 g/dl (12.0-15.5); LYMPH # 1.3 10^3/uL (1.5-5.0); LYMPH % 7.6 % (24.0-44.0); MEAN CORPUSCULAR HEMOGLOBIN 30.3 pg (27.0-33.0); MEAN CORPUSCULAR HGB CONC 33.1 g/dl (32.0-36.5); MEAN CORPUSCULAR VOLUME 91.6 fl (80.0-96.0); MONO % 6.2 % (2.0-8.0); NEUTROPHILS # 13.5 10^3/uL (1.5-8.5); NEUTROPHILS % 80.9 % (36.0-66.0); PLATELET COUNT, AUTOMATED 315 10^3/uL (150-450); RED BLOOD COUNT 5.24 10^6/uL (4.00-5.40); WHITE BLOOD COUNT 16.7 10^3/uL (4.0-10.0)
[2024-05-08 12:28] LABS: ALBUMIN 2.2 G/DL (3.2-5.2); BILIRUBIN,DIRECT 0.2 MG/DL (<0.4); BILIRUBIN,TOTAL 0.4 MG/DL (0.3-1.2); CALCIUM LEVEL 8.7 MG/DL (8.3-10.6); CREATININE FOR GFR 1.17 MG/DL (0.55-1.30); GLOMERULAR FILTRATION RATE 47.3 (>32); POTASSIUM SERUM 5.5 MMOL/L (3.5-5.1); TOTAL PROTEIN 5.5 G/DL (5.7-8.2)
[2024-05-08 13:06] LABS: KETONE, URINE AUTO RFX TRACE mg/dL (NEGATIVE); MUCUS, URINE RFX SMALL (NEGATIVE); NITRITE, URINE AUTO RFX NEGATIVE (NEGATIVE); RBC, URINE AUTO RFX 3 /HPF (0-3); SQUAM EPITHELIAL CELL UR AURFX 1 /HPF (0-6)
[2024-05-08 13:07] LABS: LEUKOCYTE ESTERASE UR AUTO RFX 3+ (NEGATIVE); WBC, URINE AUTO RFX 38 /HPF (0-3)
[2024-05-08] MEDS: NS (Normal Saline) 0.9% 1,000 ML IV ONE (14:20)
[2024-05-08] MEDS ORDERED: MIRA3350 PO (15:11)
[2024-05-08] MEDS ORDERED: TRIA1CR80 TOP (15:11)
[2024-05-08] MEDS ORDERED: MORP30TASA PO (15:13)
[2024-05-08] MEDS ORDERED: FURO20TA2 PO (15:13)
[2024-05-08] MEDS ORDERED: MORP15TA2 PO (15:13)
[2024-05-08] MEDS ORDERED: HOME MED LIST COMPLETE! XX SCH (15:15)
[2024-05-08] MEDS ORDERED: MOM 30ML SUSPENSION UDC PO PRN (15:20)
[2024-05-08] MEDS ORDERED: PROHANCE 279.3MG/ML 5ML VIAL As Ordered ONE (16:17)
[2024-05-08] MEDS: LR 1,000 ML IV SCH (18:32)
[2024-05-08] MEDS: MORPHINE SULFATE TAB IMM. REL. 15 MG PO PRN (18:32)
[2024-05-08] MEDS: AMPICILLIN SOD/SULBACTAM SOD 3 GM in SODIUM CHLORIDE 0.9% 100ML ADD 100 ML IV SCH (18:33)
[2024-05-08] MEDS: SANTYL OINT 30GM TOP SCH (19:43)
[2024-05-08] MEDS: DOCUSATE SODIUM 100MG CAPSULE PO SCH (21:14)
[2024-05-08] MEDS: GABAPENTIN 100 MG CAP PO SCH (21:14)
[2024-05-08] MEDS: MORPHINE SULFATE TAB EXT REL 15 MG PO SCH (21:15)
[2024-05-09] MEDS: MIRALAX *UNIT DOSE* 17GM PACKET PO SCH (09:25)
[2024-05-09 09:32] LABS: HEMATOCRIT 41.6 % (36.0-47.0); MEAN CORPUSCULAR HEMOGLOBIN 29.8 pg (27.0-33.0); MEAN CORPUSCULAR HGB CONC 32.2 g/dl (32.0-36.5); MEAN CORPUSCULAR VOLUME 92.4 fl (80.0-96.0); PLATELET COUNT, AUTOMATED 251 10^3/uL (150-450); WHITE BLOOD COUNT 16.5 10^3/uL (4.0-10.0)
[2024-05-09 09:34] LABS: HEMOGLOBIN 13.4 g/dl (12.0-15.5)
[2024-05-09 09:52] LABS: ALBUMIN 1.8 G/DL (3.2-5.2); ALKALINE PHOSPHATASE 287 U/L (35-104); ALT/SGPT 32 U/L (7.0-40); AST/SGOT 57 U/L (<34); BILIRUBIN,TOTAL 0.4 MG/DL (0.3-1.2); BLOOD UREA NITROGEN 32 MG/DL (9-23); CALCIUM LEVEL 8.4 MG/DL (8.3-10.6); CARBON DIOXIDE LEVEL 29 MMOL/L (20-31); CHLORIDE LEVEL 98 MMOL/L (98-107); CREATININE FOR GFR 0.94 MG/DL (0.55-1.30); GLOMERULAR FILTRATION RATE > 60.0 (>32); GLUCOSE, FASTING 70 MG/DL (74-106); SODIUM LEVEL 136 MMOL/L (136-145); TOTAL PROTEIN 4.5 G/DL (5.7-8.2)
[2024-05-09 10:19] LABS: C REACTIVE PROTEIN QUANTITATIV 10.52 MG/DL (<1.0)
[2024-05-09 10:31] LABS: PROCALCITONIN 1.79 ng/ml
[2024-05-09 11:01] LABS: ERYTHROCYTE SEDIMENTATION RATE 13 mm/hr (0-30)
[2024-05-09] MEDS: HEPARIN SOD (PORCINE) 5000UNITS/ML 1ML VIAL/SYRINGE SQ SCH (14:03)
[2024-05-09 15:30] VITALS: BP 98/63; TEMP 97.7; O2SAT 94
[2024-05-09] MEDS: MORPHINE 4 MG/ML 1ML VIAL IV ONE (16:40)
[2024-05-09 20:34] VITALS: BP 98/63; TEMP 97.5; O2SAT 95
[2024-05-09] MEDS: MORPHINE SULFATE TAB EXT REL 30 MG PO SCH (20:36)
[2024-05-10] MEDS: SODIUM CHLORIDE 0.9% INJ 10 ML SYR IV PRN (01:01)
[2024-05-10 04:00] VITALS: BP 99/49; TEMP 97.5; O2SAT 95
[2024-05-10] MEDS: SODIUM CHLORIDE 0.9% INJ 10 ML SYR IV SCH (09:27)
[2024-05-10] MEDS: VANCOMYCIN 125MG CAPSULE PO SCH (09:39)
[2024-05-10 11:58] VITALS: BP 90/52; TEMP 97.9; O2SAT 95
[2024-05-10] MEDS ORDERED: LACTATED RINGER'S 1000 ML IV ONE (13:15)
[2024-05-10] MEDS: LR 500 ML IV ONE (13:45)
[2024-05-10 14:05] LABS: HEMATOCRIT 35.9 % (36.0-47.0); MEAN CORPUSCULAR HEMOGLOBIN 30.4 pg (27.0-33.0); MEAN CORPUSCULAR HGB CONC 33.4 g/dl (32.0-36.5); MEAN CORPUSCULAR VOLUME 90.9 fl (80.0-96.0); PLATELET COUNT, AUTOMATED 206 10^3/uL (150-450); RED BLOOD COUNT 3.95 10^6/uL (4.00-5.40); WHITE BLOOD COUNT 13.7 10^3/uL (4.0-10.0)
[2024-05-10 14:28] LABS: BLOOD UREA NITROGEN 21 MG/DL (9-23); CALCIUM LEVEL 7.5 MG/DL (8.3-10.6); CARBON DIOXIDE LEVEL 30 MMOL/L (20-31); CHLORIDE LEVEL 101 MMOL/L (98-107); CREATININE FOR GFR 0.79 MG/DL (0.55-1.30); GLOMERULAR FILTRATION RATE > 60.0 (>32); GLUCOSE, FASTING 84 MG/DL (74-106); POTASSIUM SERUM 3.7 MMOL/L (3.5-5.1); SODIUM LEVEL 134 MMOL/L (136-145)
[2024-05-10 14:35] LABS: PROCALCITONIN 0.72 ng/ml
[2024-05-10] MEDS: AMPICILLIN SOD/SULBACTAM SOD 3 GM in SODIUM CHLORIDE 0.9% 100ML ADD 100 ML IV SCH (14:45)
[2024-05-10] MEDS ORDERED: ISOVUE-370 76% 100ML VIAL As Ordered ONE (16:15)
[2024-05-10] MEDS ORDERED: ENOXAPARIN 60MG/0.6ML SYRINGE (J1650 PER 10MG) SC SCH (18:00)
[2024-05-10 19:50] VITALS: BP 103/62; TEMP 97.5; O2SAT 94
[2024-05-11] MEDS: ACETAMINOPHEN 325 MG TAB PO PRN (03:37)
[2024-05-11 03:40] VITALS: BP 103/63; TEMP 97.9; O2SAT 91
[2024-05-11] MEDS: ENOXAPARIN 60MG/0.6ML SYRINGE (J1650 PER 10MG) SC SCH (05:49)
[2024-05-11 06:21] LABS: HEMATOCRIT 34.8 % (36.0-47.0); HEMOGLOBIN 11.5 g/dl (12.0-15.5); MEAN CORPUSCULAR HEMOGLOBIN 30.4 pg (27.0-33.0); MEAN CORPUSCULAR VOLUME 92.1 fl (80.0-96.0); PLATELET COUNT, AUTOMATED 211 10^3/uL (150-450); RED BLOOD COUNT 3.78 10^6/uL (4.00-5.40); WHITE BLOOD COUNT 14.7 10^3/uL (4.0-10.0)
[2024-05-11 06:45] LABS: BLOOD UREA NITROGEN 15 MG/DL (9-23); C REACTIVE PROTEIN QUANTITATIV 6.68 MG/DL (<1.0); CALCIUM LEVEL 7.5 MG/DL (8.3-10.6); CARBON DIOXIDE LEVEL 29 MMOL/L (20-31); CHLORIDE LEVEL 102 MMOL/L (98-107); CREATININE FOR GFR 0.82 MG/DL (0.55-1.30); GLOMERULAR FILTRATION RATE > 60.0 (>32); GLUCOSE, FASTING 67 MG/DL (74-106); POTASSIUM SERUM 3.5 MMOL/L (3.5-5.1); SODIUM LEVEL 136 MMOL/L (136-145)
[2024-05-11 06:51] LABS: PROCALCITONIN 0.53 ng/ml
[2024-05-11 12:00] VITALS: BP 104/63; TEMP 97; O2SAT 95
[2024-05-11] MEDS ORDERED: ONDANSETRON 4MG ORAL DISINTEGRATING TAB PO PRN (16:10)
[2024-05-11] MEDS ORDERED: HYOSCYAMINE SULFATE 0.125 MG SUBL TABLET PO PRN (16:10)
[2024-05-11] MEDS ORDERED: ATROPINE SULFATE 1% OPHTH SOLN 2ML BTL SL PRN (16:10)
[2024-05-11] MEDS: MORPHINE SULFATE TAB EXT REL 30 MG PO SCH (16:31)
[2024-05-11] MEDS: LORazepam 0.5 MG TAB PO SCH (20:54)
[2024-05-12] MEDS: LORazepam 1 MG TAB PO PRN (13:08)
[2024-05-12] MEDS: MORPHINE 10MG/0.5ML ORAL CONCENTRATE SOLUTION U/D SL PRN (13:09)
[2024-05-13] MEDS ORDERED: FENTANYL REMOVAL DOCUMENTATION MISC XX SCH (18:00)
[2024-05-15] MEDS ORDERED: HYOSCYAMINE SULFATE 0.125 MG SUBL TABLET SL PRN (11:10)
[2024-05-15] MEDS: fentaNYL 25 MCG/HR PATCH TOP SCH (11:49)
[2024-05-15] MEDS: LORazepam 0.5 MG TAB SL SCH (16:53)
[2024-05-15] MEDS: SODIUM CHLORIDE 0.9% INJ 10 ML SYR IV SCH (18:53)
[2024-05-17] MEDS: MORPHINE SULFATE ORAL SOLN 10 MG/5 ML UD PO SCH (09:00)
[2024-05-17] MEDS: FENTANYL REMOVAL DOCUMENTATION MISC XX SCH (09:13)
[2024-05-18] MEDS: MORPHINE 10MG/0.5ML ORAL CONCENTRATE SOLUTION U/D SL SCH (13:27)
[2024-05-20] MEDS: MORPHINE 10MG/0.5ML ORAL CONCENTRATE SOLUTION U/D SL SCH (13:00)
[2024-05-24] MEDS: LORazepam 1 MG TAB SL SCH (16:23)
[2024-05-27] MEDS ORDERED: LORazepam 2 MG TAB PO PRN (11:10)
[2024-05-27] MEDS ORDERED: MORPHINE 10MG/0.5ML ORAL CONCENTRATE SOLUTION U/D SL PRN (11:10)
[2024-05-27] MEDS: MORPHINE 10MG/0.5ML ORAL CONCENTRATE SOLUTION U/D SL SCH (12:51)
[2024-05-27] MEDS: LORazepam 2 MG TAB SL SCH (17:17)
[2024-05-30 12:08] VITALS: BP 104/63; TEMP 97; O2SAT 95
== END 2024-05-31 09:20 | disposition expired | DRG 542 ==
LOC: EDBD 11:12 → M ED 11:12 → M ED INP 15:20 → OBSVTOIN 16:23 → M MS5PR 05-09 15:40
PROVIDERS: ADMIT Student in an Organized Health Care Education/Training Program; ATTEND Student in an Organized Health Care Education/Training Program
DX: M84.58XA Pathological fracture in neoplastic disease, other specified site, initial encounter for fracture (principal); G93.41 Metabolic encephalopathy; N17.9 Acute kidney failure, unspecified; C68.0 Malignant neoplasm of urethra; C79.51 Secondary malignant neoplasm of bone; C78.7 Secondary malignant neoplasm of liver and intrahepatic bile duct; N39.0 Urinary tract infection, site not specified; A04.72 Enterocolitis due to Clostridium difficile, not specified as recurrent; R18.8 Other ascites; I10 Essential (primary) hypertension; R57.1 Hypovolemic shock; I25.2 Old myocardial infarction; I25.10 Atherosclerotic heart disease of native coronary artery without angina pectoris; M81.0 Age-related osteoporosis without current pathological fracture; M62.81 Muscle weakness (generalized); Z51.5 Encounter for palliative care; Z66 Do not resuscitate; R73.03 Prediabetes; R15.9 Full incontinence of feces; M48.061 Spinal stenosis, lumbar region without neurogenic claudication; E87.5 Hyperkalemia; M48.04 Spinal stenosis, thoracic region; R53.1 Weakness; K58.1 Irritable bowel syndrome with constipation; Z86.73 Personal history of transient ischemic attack (TIA), and cerebral infarction without residual deficits; Z79.899 Other long term (current) drug therapy; Z88.1 Allergy status to other antibiotic agents; Z88.8 Allergy status to other drugs, medicaments and biological substances; Z90.49 Acquired absence of other specified parts of digestive tract; Z79.891 Long term (current) use of opiate analgesic; Z95.1 Presence of aortocoronary bypass graft; Z90.5 Acquired absence of kidney; Z79.69 Long term (current) use of other immunomodulators and immunosuppressants